=== PATIENT | female | born 1950 | race Caucasian/White ===

== ENCOUNTER 2018-08-14 22:14 | Emergency (ER) | payer MEDICARE, OTHER ==
[~2018-08-14] VITALS: Ht 160 cm; Wt 59.0 kg
[~2018-08-14 22:14] MED LIST: ACET-704 PO; ACET325T9 PO; AMOX1TAB11 PO; CYCL10TA2 PO; IPRA3AMP29 NEB; LACT1CAP19 PO; METH4TAB2 PO; NABU750T PO; NAPR500T8 PO; TRAZ300T2 PO
[2018-08-14 23:10] LABS: BASO % 0 % (0-3); EOS # 0.1 x10^3/uL (0.0-0.7); EOS % 2 % (0-3); HEMATOCRIT 43.3 % (36.0-47.0); HEMOGLOBIN 15.1 g/dL (12.0-15.5); LYMPH # 1.8 x10^3/uL (1.0-4.8); LYMPH % 27 % (24-48); MEAN CORPUSCULAR HEMOGLOBIN 32 pg (25-35); MEAN CORPUSCULAR HGB CONC 35 g/dL (31-37); MEAN CORPUSCULAR VOLUME 93 fL (79-100); MONO # 0.6 x10^3/uL (0.0-1.1); MONO % 9 % (0-9); NEUT % 61 % (31-73); PLATELET COUNT 217 x10^3/uL (140-400); RED BLOOD COUNT 4.67 x10^6/uL (3.50-5.40); RED CELL DISTRIBUTION WIDTH 13.2 % (11.5-14.5); WHITE BLOOD COUNT 6.6 x10^3/uL (4.0-11.0)
--- NOTE | 2018-08-14 23:14 | RAD ---
EXAM: Chest, 2 views. HISTORY: Shortness of air. COMPARISON: CT dated 03/26/2018. FINDINGS: 2 views of the chest are obtained. There is no infiltrate, pleural effusion or pneumothorax. The heart is normal in size. There are calcified granulomas. There is emphysema. IMPRESSION: No acute pulmonary finding. Electronically signed by: Darleen Raza MD (08/14/2018 11:12 PM) [facility]
[2018-08-14 23:26] LABS: CALCIUM 9.1 mg/dL (8.5-10.1); GFR 55.5; POTASSIUM 4.1 mmol/L (3.5-5.1)
[2018-08-14] MEDS ORDERED: methylPREDNISolone SOD SUCC PF 125 MG/2 ML VIAL. IV ONE (23:30)
[2018-08-14] MEDS ORDERED: IPRATRPIUM/ALBUTEROL 0.5/2.5MG 3 ML NEBU. NEB ONE (23:30)
[2018-08-14 23:31] LABS: ALBUMIN 3.5 g/dL (3.4-5.0); ALBUMIN/GLOBULIN RATIO 0.9 (1.0-1.7); TOTAL BILIRUBIN 0.5 mg/dL (0.2-1.0); TOTAL PROTEIN 7.3 g/dL (6.4-8.2)
--- NOTE | 2018-08-14 23:31 | PHYS DOC ---
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 The patient has had insurance issues and states that she has not been able to feel the medications that her doctor has prescribed. The patient has been using her 's albuterol treatment at home. The patient has also been using Tylenol and Aleve at home. Rates her pain as 10 out of 10 and states she is sore. Review of Systems Review of Systems Constitutional: Reports fever or chills [] Eyes: Denies change in visual acuity, redness, or eye pain [] HENT: Denies nasal congestion or sore throat [] Respiratory: Reports cough or shortness of breath [] Cardiovascular: No additional information not addressed in HPI [] GI: Denies abdominal pain, nausea, vomiting, bloody stools or diarrhea [] : Denies dysuria or hematuria [] Musculoskeletal: Denies back pain or joint pain [] Integument: Denies rash or skin lesions [] Neurologic: Denies headache, focal weakness or sensory changes [] Endocrine: Denies polyuria or polydipsia [] Complete systems were reviewed and found to be within normal limits, except as documented in this note. Current Medications Current Medications Current Medications Medications (Trade) Dose Ordered Sig/Jailyn Start Time Stop Time Status Last Admin Dose Admin Albuterol/ Ipratropium (Duoneb) 3 ml 1X ONCE 08/14/18 23:30 08/14/18 23:31 DC 08/14/18 23:33 3 ML Methylprednisolone Sodium Succinate (SOLU-Medrol 125MG VIAL) 125 mg 1X ONCE 08/14/18 23:30 08/14/18 23:31 DC 08/14/18 23:41 125 MG Allergies Allergies Allergies Coded Allergies Type Severity Reaction Last Updated Verified morphine Allergy Severe rash and throat swelling 01/25/16 Yes meperidine Allergy Intermediate rash 07/06/15 Yes Physical Exam Physical Exam Constitutional: Well developed, well nourished, no acute distress, non-toxic appearance. [] HENT: Normocephalic, atraumatic, bilateral external ears normal, oropharynx moist, no oral exudates, nose normal. [] Eyes: PERRLA, EOMI, conjunctiva normal, no discharge. [] Neck: Normal range of motion, no tenderness, supple, no stridor. [] Cardiovascular:Heart rate regular rhythm, no murmur [] Lungs & Thorax: Left side breath sounds are clear to auscultation. Right side has expiratory wheezing diffusely. Abdomen: Bowel sounds normal, soft, no tenderness, no masses, no pulsatile masses. [] Skin: Warm, dry, no erythema, no rash. [] Back: No tenderness, no CVA tenderness. [] Extremities: No tenderness, no cyanosis, no clubbing, ROM intact, no edema. [] Neurologic: Alert and oriented X 3, normal motor function, normal sensory function, no focal deficits noted. [] Psychologic: Affect normal, judgement normal, mood normal. [] Current Patient Data Vital Signs Vital Signs Date Time Temp Pulse Resp B/P (MAP) Pulse Ox O2 Delivery O2 Flow Rate FiO2 08/14/18 23:42 82 20 131/76 (94) 95 Room Air 08/14/18 22:28 97.7 97.7 Lab Values Laboratory Tests Test 08/14/18 22:45 08/14/18 23:30 White Blood Count 6.6 x10^3/uL (4.0-11.0) Red Blood Count 4.67 x10^6/uL (3.50-5.40) Hemoglobin 15.1 g/dL (12.0-15.5) Hematocrit 43.3 % (36.0-47.0) Mean Corpuscular Volume 93 fL (79-100) Mean Corpuscular Hemoglobin 32 pg (25-35) Mean Corpuscular Hemoglobin Concent 35 g/dL (31-37) Red Cell Distribution Width 13.2 % (11.5-14.5) Platelet Count 217 x10^3/uL (140-400) Neutrophils (%) (Auto) 61 % (31-73) Lymphocytes (%) (Auto) 27 % (24-48) Monocytes (%) (Auto) 9 % (0-9) Eosinophils (%) (Auto) 2 % (0-3) Basophils (%) (Auto) 0 % (0-3) Neutrophils # (Auto) 4.0 x10^3uL (1.8-7.7) Lymphocytes # (Auto) 1.8 x10^3/uL (1.0-4.8) Monocytes # (Auto) 0.6 x10^3/uL (0.0-1.1) Eosinophils # (Auto) 0.1 x10^3/uL (0.0-0.7) Basophils # (Auto) 0.0 x10^3/uL (0.0-0.2) Sodium Level 142 mmol/L (136-145) Potassium Level 4.1 mmol/L (3.5-5.1) Chloride Level 106 mmol/L (98-107) Carbon Dioxide Level 24 mmol/L (21-32) Anion Gap 12 (6-14) Blood Urea Nitrogen 13 mg/dL (7-20) Creatinine 1.0 mg/dL (0.6-1.0) Estimated GFR (Cockcroft-Gault) 55.5 BUN/Creatinine Ratio 13 (6-20) Glucose Level 122 mg/dL (70-99) H Calcium Level 9.1 mg/dL (8.5-10.1) Total Bilirubin 0.5 mg/dL (0.2-1.0) Aspartate Amino Transferase (AST) 23 U/L (15-37) Alanine Aminotransferase (ALT) 31 U/L (14-59) Alkaline Phosphatase 87 U/L (46-116) Troponin I Quantitative < 0.017 ng/mL (0.000-0.055) CJ-Fom-Y-Type Natriuretic Peptide 171 pg/mL (0-124) H Total Protein 7.3 g/dL (6.4-8.2) Albumin 3.5 g/dL (3.4-5.0) Albumin/Globulin Ratio 0.9 (1.0-1.7) L Urine Collection Type Unknown Urine Color Yellow Urine Clarity Clear Urine pH 6.0 Urine Specific [place] 1.025 Urine Protein Negative mg/dL (NEG-TRACE) Urine Glucose (UA) Negative mg/dL (NEG) Urine Ketones (Stick) Negative mg/dL (NEG) Urine Blood Negative (NEG) Urine Nitrite Negative (NEG) Urine Bilirubin Negative (NEG) Urine Urobilinogen Dipstick 2.0 mg/dL (0.2 mg/dL) Urine Leukocyte Esterase Small (NEG) Urine RBC Rare /HPF (0-2) Urine WBC 1-4 /HPF (0-4) Urine Squamous Epithelial Cells Occ /LPF Urine Bacteria 0 /HPF (0-FEW) Urine Mucus Slight /LPF Lactic Acid Level 0.9 mmol/L (0.4-2.0) Laboratory Tests 08/14/18 22:45 Laboratory Tests 08/14/18 22:45 EKG EKG EKG interpreted by Dr. Saucedo Sinus Rhythm with rate of 82. No STEMI.[] Radiology/Procedures Radiology/Procedures []PATIENT: NAN-MARIE HATCH AACCOUNT: [id number]#: [id number] : 1950 LOCATION: ER AGE: 68 SEX: F EXAM STATUS: REG ER ORD. PHYSICIAN: KAVEH GALEAS APRN REASON: soa PROCEDURE: CHEST PA & LATERAL EXAM: Chest, 2 views. HISTORY: Shortness of air. COMPARISON: CT dated 03/26/2018. FINDINGS: 2 views of the chest are obtained. There is no infiltrate, pleural effusion or pneumothorax. The heart is normal in size. There are calcified granulomas. There is emphysema. IMPRESSION: No acute pulmonary finding. Electronically signed by: Darleen Raza MD (08/14/2018 11:12 PM) [facility] Course & Med Decision Making Course & Med Decision Making Pertinent Labs and Imaging studies reviewed. (See chart for details) Will get labs, chest x-ray, and give supportive care. Will give breathing treatment, and steroids. Lab work and imaging is unremarkable. Patient has improved with breathing treatment and feels comfortable going home. Patient is non-labored, resting and states she feels much better. No longer having expiratory wheezing. Dragon Disclaimer Dragon Disclaimer This electronic medical record was generated, in whole or in part, using a voice recognition dictation system. Departure Departure Impression: Primary Impression: COPD exacerbation Disposition: ADMITTED INPATIENT Admitting Physician: SERGIO Condition: STABLE Referrals: NO PCP (PCP) MONI JUDGE MD Patient Instructions: Chronic Obstructive Pulmonary Disease Exacerbation Additional Instructions: Please get your inhalers filled. Come back if symptoms get worse. Follow up with your primary care doctor. Return to ER as needed. Scripts Prednisone (PREDNISONE) 20 Mg Tablet 2 TAB PO DAILY for 5 Days, #10 TAB Prov: KAVEH GALEAS APRN 08/15/18 KAVEH GALEAS APRN Aug 14, 2018 23:31
[2018-08-14 23:41] LABS: BILIRUBIN,URINE NEGATIVE (NEG); CLARITY,URINE CLEAR; COLOR,URINE YELLOW; NITRITE,URINE NEGATIVE (NEG); PROTEIN,URINE NEGATIVE (NEG-TRACE)
[2018-08-14 23:46] LABS: BACTERIA,URINE 0 /HPF (0-FEW); RBC,URINE RARE /HPF (0-2); SQUAMOUS EPITHELIAL CELL,UR OCC /LPF
[2018-08-15 00:01] VITALS: BP 119/56
[2018-08-15] MEDS ORDERED: PRED20TA PO (00:25)
== END 2018-08-15 00:41 | disposition home or self-care (01) ==
LOC: ER 22:14
DX: J44.1 Chronic obstructive pulmonary disease with (acute) exacerbation (principal); F17.210 Nicotine dependence, cigarettes, uncomplicated; Z88.1 Allergy status to other antibiotic agents; Z88.5 Allergy status to narcotic agent
CPT/HCPCS: 36415; 71046; 80053; 81001; 83605; 83880; 84484; 85025; 94640; 96374; 99285; J2930; J7620

== ENCOUNTER 2019-01-14 10:54 | Inpatient (IN) | payer OTHER, MEDICAID ==
[~2019-01-14] VITALS: Ht 160 cm; Wt 66.5 kg
[~2019-01-14 10:54] MED LIST changes: +PRED20TA PO
[2019-01-14] MEDS ORDERED: IV NORMAL SALINE 1000ML BAG 1,000 ML IV SCH (11:12)
[2019-01-14] MEDS ORDERED: IPRATRPIUM/ALBUTEROL 0.5/2.5MG 3 ML NEBU. NEB ONE (11:15)
[2019-01-14] MEDS ORDERED: methylPREDNISolone SOD SUCC PF 125 MG/2 ML VIAL. IV ONE (11:15)
--- NOTE | 2019-01-14 11:19 | PHYS DOC ---
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 Patient complaining of nonproductive cough and episodes of shortness of breath during cough and activity for the last 1 week that gradually getting worse. Patient denies fever and chills, chest pain, sick contact, nausea and vomiting, leg edema. Patient states she took [id number] medication without improvement of her condition and her hadoop consultant was not available today and she decided to come to ER. Review of Systems Review of Systems Constitutional: Denies fever or chills [] Eyes: Denies change in visual acuity, redness, or eye pain [] HENT: Denies nasal congestion or sore throat [] Respiratory: Reports cough and shortness of breath Cardiovascular: No additional information not addressed in HPI [] GI: Denies abdominal pain, nausea, vomiting, bloody stools or diarrhea [] : Denies dysuria or hematuria [] Musculoskeletal: Denies back pain or joint pain [] Integument: Denies rash or skin lesions [] Neurologic: Denies headache, focal weakness or sensory changes [] Endocrine: Denies polyuria or polydipsia [] All other systems were reviewed and found to be within normal limits, except as documented in this note. Current Medications Current Medications Current Medications Medications (Trade) Dose Ordered Sig/Jailyn Start Time Stop Time Status Last Admin Dose Admin Albuterol/ Ipratropium (Duoneb) 3 ml 1X ONCE 01/14/19 11:15 01/14/19 11:17 DC 01/14/19 11:38 3 ML Methylprednisolone Sodium Succinate (SOLU-Medrol 125MG VIAL) 125 mg 1X ONCE 01/14/19 11:15 01/14/19 11:17 DC 01/14/19 11:53 125 MG Sodium Chloride 1,000 ml @ 1,000 mls/hr Q1H 01/14/19 11:12 01/14/19 12:11 DC 01/14/19 11:53 1,000 MLS/HR Allergies Allergies Allergies Coded Allergies Type Severity Reaction Last Updated Verified morphine Allergy Severe rash and throat swelling 01/25/16 Yes meperidine Allergy Intermediate rash 07/06/15 Yes Physical Exam Physical Exam Constitutional: Well developed, well nourished, moderate distress, non-toxic appearance. [] HENT: Normocephalic, atraumatic, bilateral external ears normal, oropharynx dry, no oral exudates, nose normal. [] Eyes: PERRLA, EOMI, conjunctiva normal, no discharge. [] Neck: Normal range of motion, no tenderness, supple, no stridor. [] Cardiovascular: Tachycardia, no murmur [] Lungs & Thorax: Moderate respiratory distress with intercostal retraction and tachypnea, decrease of air movement and diffuse rhonchi Abdomen: Bowel sounds normal, soft, no tenderness, no masses, no pulsatile masses. [] Skin: Warm, dry, no erythema, no rash. [] Back: No tenderness, no CVA tenderness. [] Extremities: No tenderness, no cyanosis, no clubbing, ROM intact, no edema. [] Neurologic: Alert and oriented X 3, normal motor function, normal sensory function, no focal deficits noted. [] Psychologic: Affect anxious, judgement normal, mood normal. [] Current Patient Data Vital Signs Vital Signs Date Time Temp Pulse Resp B/P (MAP) Pulse Ox O2 Delivery O2 Flow Rate FiO2 01/14/19 12:09 91 116/89 (98) 91 Room Air 01/14/19 11:16 98.1 22 98.1 Lab Values Laboratory Tests Test 01/14/19 11:10 01/14/19 11:15 01/14/19 11:35 Urine Collection Type Unknown Urine Color Yellow Urine Clarity Clear Urine pH 5.5 Urine Specific [place] 1.015 Urine Protein Negative mg/dL (NEG-TRACE) Urine Glucose (UA) Negative mg/dL (NEG) Urine Ketones (Stick) Negative mg/dL (NEG) Urine Blood Negative (NEG) Urine Nitrite Negative (NEG) Urine Bilirubin Negative (NEG) Urine Urobilinogen Dipstick 0.2 mg/dL (0.2 mg/dL) Urine Leukocyte Esterase Trace (NEG) Urine RBC Occ /HPF (0-2) Urine WBC 1-4 /HPF (0-4) Urine Squamous Epithelial Cells Mod /LPF Urine Bacteria Few /HPF (0-FEW) Urine Mucus Mod /LPF White Blood Count 7.7 x10^3/uL (4.0-11.0) Red Blood Count 4.87 x10^6/uL (3.50-5.40) Hemoglobin 15.8 g/dL (12.0-15.5) H Hematocrit 46.2 % (36.0-47.0) Mean Corpuscular Volume 95 fL (79-100) Mean Corpuscular Hemoglobin 33 pg (25-35) Mean Corpuscular Hemoglobin Concent 34 g/dL (31-37) Red Cell Distribution Width 13.0 % (11.5-14.5) Platelet Count 231 x10^3/uL (140-400) Neutrophils (%) (Auto) 71 % (31-73) Lymphocytes (%) (Auto) 17 % (24-48) L Monocytes (%) (Auto) 8 % (0-9) Eosinophils (%) (Auto) 3 % (0-3) Basophils (%) (Auto) 1 % (0-3) Neutrophils # (Auto) 5.5 x10^3/uL (1.8-7.7) Lymphocytes # (Auto) 1.3 x10^3/uL (1.0-4.8) Monocytes # (Auto) 0.6 x10^3/uL (0.0-1.1) Eosinophils # (Auto) 0.2 x10^3/uL (0.0-0.7) Basophils # (Auto) 0.1 x10^3/uL (0.0-0.2) Prothrombin Time 12.6 SEC (11.7-14.0) Prothrombin Time INR 1.0 (0.8-1.1) Sodium Level 141 mmol/L (136-145) Potassium Level 4.7 mmol/L (3.5-5.1) Chloride Level 106 mmol/L (98-107) Carbon Dioxide Level 23 mmol/L (21-32) Anion Gap 12 (6-14) Blood Urea Nitrogen 15 mg/dL (7-20) Creatinine 0.9 mg/dL (0.6-1.0) Estimated GFR (Cockcroft-Gault) 62.6 BUN/Creatinine Ratio 17 (6-20) Glucose Level 122 mg/dL (70-99) H Lactic Acid Level 2.1 mmol/L (0.4-2.0) H Calcium Level 9.2 mg/dL (8.5-10.1) Total Bilirubin 0.5 mg/dL (0.2-1.0) Aspartate Amino Transferase (AST) 33 U/L (15-37) Alanine Aminotransferase (ALT) 41 U/L (14-59) Alkaline Phosphatase 102 U/L (46-116) Creatine Kinase 91 U/L (26-192) Troponin I Quantitative < 0.017 ng/mL (0.000-0.055) OP-Pus-T-Type Natriuretic Peptide 198 pg/mL (0-124) H Total Protein 7.3 g/dL (6.4-8.2) Albumin 3.6 g/dL (3.4-5.0) Albumin/Globulin Ratio 1.0 (1.0-1.7) O2 Saturation 93 % (92-99) Arterial Blood pH 7.45 (7.35-7.45) Arterial Blood pCO2 at Patient Temp 34 mmHg (35-46) L Arterial Blood pO2 at Patient Temp 65 mmHg (65-108) Arterial Blood HCO3 23 mmol/L (21-28) Arterial Blood Base Excess 0 mmol/L (-3-3) FiO2 21 Laboratory Tests 01/14/19 11:15 Laboratory Tests 01/14/19 11:15 EKG EKG EKG interpreted by me. EKG at 1108 showed sinus tachycardia at rate of 111, normal OK and QT intervals, no acute ST and T-wave abnormalities Radiology/Procedures Radiology/Procedures [][facility] [address] [place], [place] [id number] IMAGING REPORT Signed PATIENT: ANN-MARIE HATCH AACCOUNT: [id number] : 1950 LOCATION: ER AGE: 68 SEX: F EXAM STATUS: REG ER ORD. PHYSICIAN: FUNMI RAVI MD REASON: shortness of breath PROCEDURE: PORTABLE CHEST 1V EXAM: Chest, single view. HISTORY: Shortness of breath. COMPARISON: 08/14/2018 FINDINGS: A frontal view of the chest is obtained. There is bilateral basilar and lingular atelectasis or scarring. There is no pleural effusion or pneumothorax. The heart is normal in size. There is a small faint nodular opacity overlying the right upper lobe between the posterior fifth and sixth ribs. There is no corresponding finding on the prior study. There is hyperinflation likely due to emphysema. IMPRESSION: 1. No acute pulmonary finding. 2. Small faint nodular opacity overlying the right upper lobe. This may be artifactual. Short-term follow-up is recommended to exclude a noncalcified nodule in this location. Electronically signed by: Darleen Wang MD (01/14/2019 11:42 AM) [place] [id number] DICTATED and SIGNED BY: DARLEEN WANG MD DATE: 01/14/19 1142 Course & Med Decision Making Course & Med Decision Making Pertinent Labs and Imaging studies reviewed. (See chart for details) Evolution of patient in ER showed 68-year-old female patient with history of COPD and smoking presented with complaining of shortness of breath. Patient had O2 sat of 90 10 96% at room air that improved with treatment in ER. 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 Treatment for sepsis and COPD exacerbation was started. Patient requiring admission for further evaluation and treatment. Discussed with Dr. Thibodeaux who is in agreement with admission. Discussed findings and plan with patient and family, who acknowledge understanding and agreement. Dragon Disclaimer Dragon Disclaimer This electronic medical record was generated, in whole or in part, using a voice recognition dictation system. Departure Departure Impression: Primary Impression: Acute respiratory distress Additional Impressions: COPD exacerbation Sepsis Tobacco abuse Disposition: 09 ADMITTED INPATIENT (at 1231) Admitting Physician: SERGIO (Dr. Thibodeaux accepted admission at 12:30) Condition: GUARDED Referrals: NO PCP (PCP) Date and Time of Reassessment Date: Jan 14, 2019 Time: 12:33 Fluid Challenge Is the fluid challenge complet: No IBW Target Volume Used: No BMI > 30: No Vital Signs Vital Signs: Vital Signs Date Time Temp Pulse Resp B/P (MAP) Pulse Ox O2 Delivery O2 Flow Rate FiO2 01/14/19 12:09 91 116/89 (98) 91 Room Air 01/14/19 11:16 98.1 22 98.1 Temperature Source: Oral Respirations Respiratory Pattern: Tachypnea Cardiovascular Pulse Rhythm: Regular Heart: Nml S1, S2, no murmurs Lung Sounds Breath Sounds: Coarse, Rhonchi, Diminished Capillary Refil Capillary Refill: Rt Hand < 3 seconds Peripheral Pulse Pulse Location: Radial Pulse Strength: Normal (2+) Pulse Assessment Method: NIBP Problem Qualifiers Additional Impressions: Sepsis Sepsis type: sepsis due to unspecified organism Sepsis acute organ dysfu nction status: unspecified Qualified Codes: A41.9 - Sepsis, unspecified organism FUNMI RAVI MD Jan 14, 2019 11:19
[2019-01-14 11:30] LABS: BASO # 0.1 x10^3/uL (0.0-0.2); BASO % 1 % (0-3); EOS # 0.2 x10^3/uL (0.0-0.7); EOS % 3 % (0-3); HEMATOCRIT 46.2 % (36.0-47.0); HEMOGLOBIN 15.8 g/dL (12.0-15.5); LYMPH # 1.3 x10^3/uL (1.0-4.8); LYMPH % 17 % (24-48); MEAN CORPUSCULAR HEMOGLOBIN 33 pg (25-35); MEAN CORPUSCULAR HGB CONC 34 g/dL (31-37); MEAN CORPUSCULAR VOLUME 95 fL (79-100); MONO # 0.6 x10^3/uL (0.0-1.1); MONO % 8 % (0-9); NEUT # 5.5 x10^3/uL (1.8-7.7); NEUT % 71 % (31-73); PLATELET COUNT 231 x10^3/uL (140-400); RED BLOOD COUNT 4.87 x10^6/uL (3.50-5.40); WHITE BLOOD COUNT 7.7 x10^3/uL (4.0-11.0)
[2019-01-14 11:33] LABS: BILIRUBIN,URINE NEGATIVE (NEG); CLARITY,URINE CLEAR; COLOR,URINE YELLOW; NITRITE,URINE NEGATIVE (NEG); PH,URINE 5.5; PROTEIN,URINE NEGATIVE (NEG-TRACE); UROBILINOGEN,URINE 0.2 mg/dL (0.2 mg/dL)
[2019-01-14 11:41] LABS: PROTHROMBIN TIME PATIENT 12.6 SEC (11.7-14.0)
--- NOTE | 2019-01-14 11:42 | EKG ---
[facility] [address] [place] [address] Test Date: 2019-01-14 Test Time: 11:08:05 Pat Name: ANN-MARIE HATCH Department: Room: Gender: F Rehab Services Aide: : 1950 Requested By: FUNMI RAVI Order Number: [id number] Reading MD: Measurements Intervals [place] Rate: 111 P: 82 [place]: 154 QRS: 38 QRSD: 62 T: 49 QT: 310 QTc: 425 Interpretive Statements SINUS TACHYCARDIA OTHERWISE NORMAL ECG RI6.01 No previous ECG available for comparison
[2019-01-14 11:43] LABS: CALCIUM 9.2 mg/dL (8.5-10.1); CREATININE 0.9 mg/dL (0.6-1.0); GFR 62.6; POTASSIUM 4.7 mmol/L (3.5-5.1)
[2019-01-14 11:44] LABS: BASE EXCESS ABG 0 mmol/L (-3-3); HCO3 ABG 23 mmol/L (21-28); PCO2 ABG 34 mmHg (35-46); PO2 ABG 65 mmHg (65-108); SAT O2 ABG 93 % (92-99)
--- NOTE | 2019-01-14 11:45 | RAD ---
EXAM: Chest, single view. HISTORY: Shortness of breath. COMPARISON: 08/14/2018 FINDINGS: A frontal view of the chest is obtained. There is bilateral basilar and lingular atelectasis or scarring. There is no pleural effusion or pneumothorax. The heart is normal in size. There is a small faint nodular opacity overlying the right upper lobe between the posterior fifth and sixth ribs. There is no corresponding finding on the prior study. There is hyperinflation likely due to emphysema. IMPRESSION: 1. No acute pulmonary finding. 2. Small faint nodular opacity overlying the right upper lobe. This may be artifactual. Short-term follow-up is recommended to exclude a noncalcified nodule in this location. Electronically signed by: Darleen Raza MD (01/14/2019 11:42 AM) [place] [id number]
[2019-01-14 11:47] LABS: FIO2 ABG 21
[2019-01-14 11:50] LABS: ALBUMIN 3.6 g/dL (3.4-5.0); TOTAL BILIRUBIN 0.5 mg/dL (0.2-1.0); TOTAL PROTEIN 7.3 g/dL (6.4-8.2)
[2019-01-14 11:51] LABS: RBC,URINE OCC /HPF (0-2); SQUAMOUS EPITHELIAL CELL,UR MOD /LPF
[2019-01-14 11:52] LABS: BACTERIA,URINE FEW /HPF (0-FEW)
[2019-01-14] MEDS ORDERED: cefTRIAXone IV Push 1 GM VIAL. IVP ONE (12:45)
[2019-01-14] MEDS ORDERED: ONDANSETRON PF 4 MG/2 ML VIAL. ONE (12:56)
[2019-01-14] MEDS ORDERED: ONDANSETRON PF 4 MG/2 ML VIAL. IM ONE (13:00)
[2019-01-14] MEDS ORDERED: ONDANSETRON PF 4 MG/2 ML VIAL. IVP ONE (13:15)
[2019-01-14] MEDS: IV NORMAL SALINE 1000ML BAG 1,000 ML IV SCH ×2 (13:24→20:01)
[2019-01-14 13:30] VITALS: BP 155/66
--- NOTE | 2019-01-14 14:34 | PDOC1 ---
History and Physical Date of Admission: Date of Admission DATE: 01/14/19 TIME: 14:32 Chief Complaint: Chief Complain: Shortness of breath and cough History of Present Illness: HPI: HPI HPI Patient is a 68 year old 68-year-old currently a smoker female patient with history of COPD on 3 L of night oxygen who presents with complaining of cough and shortness of breath. Patient complaining of nonproductive cough and episodes of shortness of breath during cough and activity for the last 1 week that gradua lly getting worse. Patient denies fever and chills, chest pain, sick contact, nausea and vomiting, leg edema. Patient states she took [id number] medication without improvement of her condition and her associate director regulatory affairs was not available today and she decided to come to ER. Past Medical/Surgical History: PMH/PSH: Past Medical History: Anemia, COPD, Other Additional Past Medical Histor: TUMORS IN CHEST CAVITY,POSSIBLE CA Past Surgical History: Other Additional Past Surgical Histo: TUBAL Alcohol Use: None Drug Use: Methamphetamine Allergies: Allergies: Coded Allergies: morphine (Verified Allergy, Severe, rash and throat swelling, 01/25/16) tolerates hydrocodone meperidine (Verified Allergy, Intermediate, rash, 07/06/15) Family History: Family History: Hypertension and diabetes Social History: Social Hisoty: She still smokes no drinking or drugs Current Medications: Current Medications Current Medications Sodium Chloride 1,000 ml @ 1,000 mls/hr Q1H IV Last administered on 01/14/19at 11:53; Start 01/14/19 at 11:12; Stop 01/14/19 at 12:11; Status DC Albuterol/ Ipratropium (Duoneb) 3 ml 1X ONCE NEB Last administered on 01/14/19at 11:38; Start 01/14/19 at 11:15; Stop 01/14/19 at 11:17; Status DC Methylprednisolone Sodium Succinate (SOLU-Medrol 125MG VIAL) 125 mg 1X ONCE IV Last administered on 01/14/19at 11:53; Start 01/14/19 at 11:15; Stop 01/14/19 at 11:17; Status DC Ceftriaxone Sodium (Rocephin) 1 gm 1X ONCE IVP Last administered on 01/14/19at 12:51; Start 01/14/19 at 12:45; Stop 01/14/19 at 12:46; Status DC Ondansetron HCl (Zofran) 4 mg STK-MED ONCE .ROUTE ; Start 01/14/19 at 12:56; Stop 01/14/19 at 12:57; Status DC Ondansetron HCl (Zofran) 4 mg 1X ONCE IM ; Start 01/14/19 at 13:00; Stop 01/14/19 at 13:01; Status UNV Ondansetron HCl (Zofran) 4 mg 1X ONCE IVP Last administered on 01/14/19at 13:14; Start 01/14/19 at 13:15; Stop 01/14/19 at 13:16; Status DC Sodium Chloride 1,000 ml @ 125 mls/hr Q8H IV ; Start 01/14/19 at 13:24; Stop 1 03/17/18 at 13:23 Active Scripts Active Prednisone 20 Mg Tablet 2 Tab PO DAILY 5 Days Culturelle (Lactobacillus Rhamnosus Gg) 1 Each Cap.sprink 1 Cap PO BID 14 Days Tylenol (Acetaminophen) 325 Mg Tablet 650 Mg PO PRN Q6HRS PRN 14 Days Duoneb 0.5-3(2.5) Mg/3 Ml (Albuterol/Ipratropium) 3 Ml Ampul.neb 3 Ml NEB RTQID 30 Days Amox Tr-K Clv 875-125 Mg Tab (Amoxicillin/Potassium Clav) 1 Each Tablet 1 Tab PO BID 10 Days Reported Trazodone Hcl 300 Mg Tablet 1 Tab PO QHS Nabumetone 750 Mg Tablet 2 Tab PO DAILY ROS: Review of Systems Review of System REVIEW OF SYSTEMS: GENERAL: Denies weakness SKIN: No bruising, hair changes or rashes. EYES: No blurred, double or loss of vision. NOSE AND THROAT: No history of nosebleeds, hoarseness or sore throat. HEART: No history of palpitations, chest pain or shortness of breath on exertion. LUNGS: Complains of cough, hemoptysis, wheezing or shortness of breath. GASTROINTESTINAL: Denies changes in appetite, nausea, vomiting, diarrhea or constipation. GENITOURINARY: No history of frequency, urgency, hesitancy or nocturia. NEUROLOGIC: Denies history of numbness, tingling, tremor or weakness. PSYCHIATRIC: No history of panic, anxiety or depression. ENDOCRINE: No history of heat or cold intolerance, polyuria or polydipsia. EXTREMITIES: Denies muscle weakness, joint pain, pain on walking or stiffness. Physical Exam: Vital Signs: Vital Signs Date Time Temp Pulse Resp B/P (MAP) Pulse Ox O2 Delivery O2 Flow Rate FiO2 01/14/19 13:09 80 116/69 (85) 92 Room Air 01/14/19 11:16 98.1 22 98.1 Physcial Exam: GEN.: No apparent distress. Alert and oriented. HEENT: Head is normocephalic, atraumatic NECK: Supple, no JVD LUNGS: Course breath sounds and wheezing throughout HEART: RRR, S1, S2 present. Peripheral pulses intact ABDOMEN: Soft, nontender. Positive bowel sounds no organomegaly EXTREMITIES: Without any cyanosis, clubbing, or edema. Pedal pulses intact NEUROLOGIC: Normal speech, normal tone. A&O x 3 PSYCHIATRIC: Normal affect, normal mood. Stable SKIN: No ulcerations or rashes VASCULAR: Good capillary refill Labs: Labs: Laboratory Tests Test 01/14/19 11:10 01/14/19 11:15 01/14/19 11:35 Urine Collection Type Unknown Urine Color Yellow Urine Clarity Clear Urine pH 5.5 Urine Specific Springer 1.015 Urine Protein Negative mg/dL (NEG-TRACE) Urine Glucose (UA) Negative mg/dL (NEG) Urine Ketones (Stick) Negative mg/dL (NEG) Urine Blood Negative (NEG) Urine Nitrite Negative (NEG) Urine Bilirubin Negative (NEG) Urine Urobilinogen Dipstick 0.2 mg/dL (0.2 mg/dL) Urine Leukocyte Esterase Trace (NEG) Urine RBC Occ /HPF (0-2) Urine WBC 1-4 /HPF (0-4) Urine Squamous Epithelial Cells Mod /LPF Urine Bacteria Few /HPF (0-FEW) Urine Mucus Mod /LPF White Blood Count 7.7 x10^3/uL (4.0-11.0) Red Blood Count 4.87 x10^6/uL (3.50-5.40) Hemoglobin 15.8 g/dL (12.0-15.5) Hematocrit 46.2 % (36.0-47.0) Mean Corpuscular Volume 95 fL (79-100) Mean Corpuscular Hemoglobin 33 pg (25-35) Mean Corpuscular Hemoglobin Concent 34 g/dL (31-37) Red Cell Distribution Width 13.0 % (11.5-14.5) Platelet Count 231 x10^3/uL (140-400) Neutrophils (%) (Auto) 71 % (31-73) Lymphocytes (%) (Auto) 17 % (24-48) Monocytes (%) (Auto) 8 % (0-9) Eosinophils (%) (Auto) 3 % (0-3) Basophils (%) (Auto) 1 % (0-3) Neutrophils # (Auto) 5.5 x10^3/uL (1.8-7.7) Lymphocytes # (Auto) 1.3 x10^3/uL (1.0-4.8) Monocytes # (Auto) 0.6 x10^3/uL (0.0-1.1) Eosinophils # (Auto) 0.2 x10^3/uL (0.0-0.7) Basophils # (Auto) 0.1 x10^3/uL (0.0-0.2) Prothrombin Time 12.6 SEC (11.7-14.0) Prothromb Time International Ratio 1.0 (0.8-1.1) Sodium Level 141 mmol/L (136-145) Potassium Level 4.7 mmol/L (3.5-5.1) Chloride Level 106 mmol/L (98-107) Carbon Dioxide Level 23 mmol/L (21-32) Anion Gap 12 (6-14) Blood Urea Nitrogen 15 mg/dL (7-20) Creatinine 0.9 mg/dL (0.6-1.0) Estimated GFR (Cockcroft-Gault) 62.6 BUN/Creatinine Ratio 17 (6-20) Glucose Level 122 mg/dL (70-99) Lactic Acid Level 2.1 mmol/L (0.4-2.0) Calcium Level 9.2 mg/dL (8.5-10.1) Total Bilirubin 0.5 mg/dL (0.2-1.0) Aspartate Amino Transf (AST/SGOT) 33 U/L (15-37) Alanine Aminotransferase (ALT/SGPT) 41 U/L (14-59) Alkaline Phosphatase 102 U/L (46-116) Creatine Kinase 91 U/L (26-192) Troponin I Quantitative < 0.017 ng/mL (0.000-0.055) UI-Ihd-P-Type Natriuretic Peptide 198 pg/mL (0-124) Total Protein 7.3 g/dL (6.4-8.2) Albumin 3.6 g/dL (3.4-5.0) Albumin/Globulin Ratio 1.0 (1.0-1.7) O2 Saturation 93 % (92-99) Arterial Blood pH 7.45 (7.35-7.45) Arterial Blood pCO2 at Patient Temp 34 mmHg (35-46) Arterial Blood pO2 at Patient Temp 65 mmHg (65-108) Arterial Blood HCO3 23 mmol/L (21-28) Arterial Blood Base Excess 0 mmol/L (-3-3) FiO2 21 Laboratory Tests Test 01/14/19 11:10 01/14/19 11:15 01/14/19 11:35 Urine Collection Type Unknown Urine Color Yellow Urine Clarity Clear Urine pH 5.5 Urine Specific Springer 1.015 Urine Protein Negative mg/dL (NEG-TRACE) Urine Glucose (UA) Negative mg/dL (NEG) Urine Ketones (Stick) Negative mg/dL (NEG) Urine Blood Negative (NEG) Urine Nitrite Negative (NEG) Urine Bilirubin Negative (NEG) Urine Urobilinogen Dipstick 0.2 mg/dL (0.2 mg/dL) Urine Leukocyte Esterase Trace (NEG) Urine RBC Occ /HPF (0-2) Urine WBC 1-4 /HPF (0-4) Urine Squamous Epithelial Cells Mod /LPF Urine Bacteria Few /HPF (0-FEW) Urine Mucus Mod /LPF White Blood Count 7.7 x10^3/uL (4.0-11.0) Red Blood Count 4.87 x10^6/uL (3.50-5.40) Hemoglobin 15.8 g/dL (12.0-15.5) Hematocrit 46.2 % (36.0-47.0) Mean Corpuscular Volume 95 fL (79-100) Mean Corpuscular Hemoglobin 33 pg (25-35) Mean Corpuscular Hemoglobin Concent 34 g/dL (31-37) Red Cell Distribution Width 13.0 % (11.5-14.5) Platelet Count 231 x10^3/uL (140-400) Neutrophils (%) (Auto) 71 % (31-73) Lymphocytes (%) (Auto) 17 % (24-48) Monocytes (%) (Auto) 8 % (0-9) Eosinophils (%) (Auto) 3 % (0-3) Basophils (%) (Auto) 1 % (0-3) Neutrophils # (Auto) 5.5 x10^3/uL (1.8-7.7) Lymphocytes # (Auto) 1.3 x10^3/uL (1.0-4.8) Monocytes # (Auto) 0.6 x10^3/uL (0.0-1.1) Eosinophils # (Auto) 0.2 x10^3/uL (0.0-0.7) Basophils # (Auto) 0.1 x10^3/uL (0.0-0.2) Prothrombin Time 12.6 SEC (11.7-14.0) Prothromb Time International Ratio 1.0 (0.8-1.1) Sodium Level 141 mmol/L (136-145) Potassium Level 4.7 mmol/L (3.5-5.1) Chloride Level 106 mmol/L (98-107) Carbon Dioxide Level 23 mmol/L (21-32) Anion Gap 12 (6-14) Blood Urea Nitrogen 15 mg/dL (7-20) Creatinine 0.9 mg/dL (0.6-1.0) Estimated GFR (Cockcroft-Gault) 62.6 BUN/Creatinine Ratio 17 (6-20) Glucose Level 122 mg/dL (70-99) Lactic Acid Level 2.1 mmol/L (0.4-2.0) Calcium Level 9.2 mg/dL (8.5-10.1) Total Bilirubin 0.5 mg/dL (0.2-1.0) Aspartate Amino Transf (AST/SGOT) 33 U/L (15-37) Alanine Aminotransferase (ALT/SGPT) 41 U/L (14-59) Alkaline Phosphatase 102 U/L (46-116) Creatine Kinase 91 U/L (26-192) Troponin I Quantitative < 0.017 ng/mL (0.000-0.055) YO-Epr-S-Type Natriuretic Peptide 198 pg/mL (0-124) Total Protein 7.3 g/dL (6.4-8.2) Albumin 3.6 g/dL (3.4-5.0) Albumin/Globulin Ratio 1.0 (1.0-1.7) O2 Saturation 93 % (92-99) Arterial Blood pH 7.45 (7.35-7.45) Arterial Blood pCO2 at Patient Temp 34 mmHg (35-46) Arterial Blood pO2 at Patient Temp 65 mmHg (65-108) Arterial Blood HCO3 23 mmol/L (21-28) Arterial Blood Base Excess 0 mmol/L (-3-3) FiO2 21 Assessment/Plan Assessment/Plan Respiratory failure COPD Tobacco abuse Plan Consult pulmonary IV steroids IV antibiotics O2 per nasal cannula Duo nebs Home meds DVT prophylaxis Full code MITCHELL GUAJARDO III DO Jan 14, 2019 14:34
[2019-01-14 15:04] VITALS: BP 150/63
--- NOTE | 2019-01-14 17:28 | NUR ---
Pt reports no home meds.
[2019-01-14 19:50] VITALS: BP 127/70
[2019-01-14] MEDS ORDERED: ZOLPIDEM 5 MG TABLET. PO PRN (21:00)
[2019-01-14] MEDS ORDERED: ACETAMINOPHEN 325 MG TABLET. PO PRN (21:00)
[2019-01-14] MEDS: methylPREDNISolone SOD SUCC PF 40 MG/ML VIAL. IV SCH ×2 (21:07→21:09)
[2019-01-14] MEDS: LACTOBACILLUS RHAMNOSUS GG 1 CAPSULE. PO SCH (21:07)
[2019-01-14] MEDS: IPRATRPIUM/ALBUTEROL 0.5/2.5MG 3 ML NEBU. NEB SCH (21:19)
[2019-01-14] MEDS: traZODone 100 MG TABLET. PO SCH (22:00)
[2019-01-14 23:56] VITALS: BP 113/68
[2019-01-15] MEDS: IV NORMAL SALINE 1000ML BAG 1,000 ML IV SCH (02:06)
[2019-01-15 03:00] VITALS: BP 113/64
[2019-01-15] MEDS: IPRATRPIUM/ALBUTEROL 0.5/2.5MG 3 ML NEBU. NEB SCH ×5 (07:08→22:00)
[2019-01-15 07:15] VITALS: BP 119/65
[2019-01-15] MEDS: MELOXICAM 7.5 MG TABLET PO SCH (08:18)
[2019-01-15] MEDS: LACTOBACILLUS RHAMNOSUS GG 1 CAPSULE. PO SCH ×2 (08:18→20:48)
[2019-01-15] MEDS ORDERED: FLU VAX QS 2019-20 (36MOS+)/PF 0.5 ML SYRINGE. VAX IM ONE (09:00)
[2019-01-15 11:01] VITALS: BP 129/63
[2019-01-15] MEDS ORDERED: cefTRIAXone IV Push 1 GM VIAL. IVP SCH (12:00)
--- NOTE | 2019-01-15 12:12 | PDOC ---
PROGRESS NOTES Chief Complaint Chief Complaint acute on chronic combined Respiratory failure COPD with acute exacerbation Tobacco abuse History of Present Illness History of Present Illness better cough suppression today DC the IV fluids pulmonary follwing IV steroids and IV antibiotics O2 per nasal cannula Duo nebs Vitals Vitals Vital Signs Date Time Temp Pulse Resp B/P (MAP) Pulse Ox O2 Delivery O2 Flow Rate FiO2 01/15/19 11:02 93 Room Air 01/15/19 11:01 97.6 79 20 129/63 (85) 97.6 Physical Exam General: Alert, Cooperative Lungs: Crackles, Other (end wheeze, rales, deep breaths provoke cough) Extremities: No cyanosis Skin: No rashes, No breakdown Labs LABS Laboratory Tests Test 01/14/19 14:53 Lactic Acid Level 2.3 mmol/L (0.4-2.0) Assessment and Plan Assessmemt and Plan Problems Medical Problems: (1) Acute respiratory distress Status: Acute (2) COPD exacerbation Status: Acute (3) Sepsis Status: Acute (4) Tobacco abuse Status: Acute Comment Review of Relevant I have reviewed the following items johan (where applicable) has been applied. Labs Laboratory Tests Test 01/14/19 11:10 01/14/19 11:15 01/14/19 11:35 01/14/19 14:53 Urine Collection Type Unknown Urine Color Yellow Urine Clarity Clear Urine pH 5.5 Urine Specific [place] 1.015 Urine Protein Negative mg/dL (NEG-TRACE) Urine Glucose (UA) Negative mg/dL (NEG) Urine Ketones (Stick) Negative mg/dL (NEG) Urine Blood Negative (NEG) Urine Nitrite Negative (NEG) Urine Bilirubin Negative (NEG) Urine Urobilinogen Dipstick 0.2 mg/dL (0.2 mg/dL) Urine Leukocyte Esterase Trace (NEG) Urine RBC Occ /HPF (0-2) Urine WBC 1-4 /HPF (0-4) Urine Squamous Epithelial Cells Mod /LPF Urine Bacteria Few /HPF (0-FEW) Urine Mucus Mod /LPF White Blood Count 7.7 x10^3/uL (4.0-11.0) Red Blood Count 4.87 x10^6/uL (3.50-5.40) Hemoglobin 15.8 g/dL (12.0-15.5) Hematocrit 46.2 % (36.0-47.0) Mean Corpuscular Volume 95 fL (79-100) Mean Corpuscular Hemoglobin 33 pg (25-35) Mean Corpuscular Hemoglobin Concent 34 g/dL (31-37) Red Cell Distribution Width 13.0 % (11.5-14.5) Platelet Count 231 x10^3/uL (140-400) Neutrophils (%) (Auto) 71 % (31-73) Lymphocytes (%) (Auto) 17 % (24-48) Monocytes (%) (Auto) 8 % (0-9) Eosinophils (%) (Auto) 3 % (0-3) Basophils (%) (Auto) 1 % (0-3) Neutrophils # (Auto) 5.5 x10^3/uL (1.8-7.7) Lymphocytes # (Auto) 1.3 x10^3/uL (1.0-4.8) Monocytes # (Auto) 0.6 x10^3/uL (0.0-1.1) Eosinophils # (Auto) 0.2 x10^3/uL (0.0-0.7) Basophils # (Auto) 0.1 x10^3/uL (0.0-0.2) Prothrombin Time 12.6 SEC (11.7-14.0) Prothromb Time International Ratio 1.0 (0.8-1.1) Sodium Level 141 mmol/L (136-145) Potassium Level 4.7 mmol/L (3.5-5.1) Chloride Level 106 mmol/L (98-107) Carbon Dioxide Level 23 mmol/L (21-32) Anion Gap 12 (6-14) Blood Urea Nitrogen 15 mg/dL (7-20) Creatinine 0.9 mg/dL (0.6-1.0) Estimated GFR (Cockcroft-Gault) 62.6 BUN/Creatinine Ratio 17 (6-20) Glucose Level 122 mg/dL (70-99) Lactic Acid Level 2.1 mmol/L (0.4-2.0) 2.3 mmol/L (0.4-2.0) Calcium Level 9.2 mg/dL (8.5-10.1) Total Bilirubin 0.5 mg/dL (0.2-1.0) Aspartate Amino Transf (AST/SGOT) 33 U/L (15-37) Alanine Aminotransferase (ALT/SGPT) 41 U/L (14-59) Alkaline Phosphatase 102 U/L (46-116) Creatine Kinase 91 U/L (26-192) Troponin I Quantitative < 0.017 ng/mL (0.000-0.055) JD-Qol-R-Type Natriuretic Peptide 198 pg/mL (0-124) Total Protein 7.3 g/dL (6.4-8.2) Albumin 3.6 g/dL (3.4-5.0) Albumin/Globulin Ratio 1.0 (1.0-1.7) O2 Saturation 93 % (92-99) Arterial Blood pH 7.45 (7.35-7.45) Arterial Blood pCO2 at Patient Temp 34 mmHg (35-46) Arterial Blood pO2 at Patient Temp 65 mmHg (65-108) Arterial Blood HCO3 23 mmol/L (21-28) Arterial Blood Base Excess 0 mmol/L (-3-3) FiO2 21 Laboratory Tests Test 01/14/19 14:53 Lactic Acid Level 2.3 mmol/L (0.4-2.0) Microbiology 01/14/19 Blood Culture - Preliminary, Resulted NO GROWTH AFTER 1 DAY Medications Current Medications Sodium Chloride 1,000 ml @ 1,000 mls/hr Q1H IV Last administered on 01/14/19at 11:53; Start 01/14/19 at 11:12; Stop 01/14/19 at 12:11; Status DC Albuterol/ Ipratropium (Duoneb) 3 ml 1X ONCE NEB Last administered on 01/14/19at 11:38; Start 01/14/19 at 11:15; Stop 01/14/19 at 11:17; Status DC Methylprednisolone Sodium Succinate (SOLU-Medrol 125MG VIAL) 125 mg 1X ONCE IV Last administered on 01/14/19at 11:53; Start 01/14/19 at 11:15; Stop 01/14/19 at 11:17; Status DC Ceftriaxone Sodium (Rocephin) 1 gm 1X ONCE IVP Last administered on 01/14/19at 12:51; Start 01/14/19 at 12:45; Stop 01/14/19 at 12:46; Status DC Ondansetron HCl (Zofran) 4 mg STK-MED ONCE .ROUTE ; Start 01/14/19 at 12:56; Stop 01/14/19 at 12:57; Status DC Ondansetron HCl (Zofran) 4 mg 1X ONCE IM ; Start 01/14/19 at 13:00; Stop 01/14/19 at 13:01; Status UNV Ondansetron HCl (Zofran) 4 mg 1X ONCE IVP Last administered on 01/14/19at 13:14; Start 01/14/19 at 13:15; Stop 01/14/19 at 13:16; Status DC Sodium Chloride 1,000 ml @ 125 mls/hr Q8H IV Last administered on 01/15/19at 02:06; Start 01/14/19 at 13:24; Stop 01/15/19 at 13:23 Methylprednisolone Sodium Succinate (SOLU-Medrol 40MG VIAL) 40 mg Q12HR IV Last administered on 01/14/19at 21:07; Start 01/14/19 at 21:00 Ceftriaxone Sodium (Rocephin) 1 gm Q24H IVP ; Start 01/15/19 at 12:00 Albuterol/ Ipratropium (Duoneb) 3 ml Q4HRS W/A NEB Last administered on 01/15/19at 11:02; Start 01/14/19 at 22:00 Zolpidem Tartrate (Ambien) 5 mg PRN QHS PRN PO INSOMNIA; Start 01/14/19 at 21:00 Acetaminophen (Tylenol) 650 mg PRN Q6HRS PRN PO Headaches, Temp > 101.5F; Start 01/14/19 at 21:00 Lactobacillus Rhamnosus (Culturelle) 1 cap BID PO Last administered on 01/15/19at 08:18; Start 01/14/19 at 21:00 Meloxicam (Mobic) 15 mg DAILY PO Last administered on 01/15/19at 08:18; Start 01/15/19 at 09:00 Trazodone HCl (Desyrel) 300 mg QHS PO ; Start 01/14/19 at 22:00 Influenza Virus Vaccine Quadrival (Afluria Quad 2019-20 (3yr Up) Syringe) 0.5 ml ONCE ONCE VAX IM ; Start 01/15/19 at 09:00; Stop 01/15/19 at 09:01; Status DC Active Scripts Active Prednisone 20 Mg Tablet 2 Tab PO DAILY 5 Days Culturelle (Lactobacillus Rhamnosus Gg) 1 Each Cap.sprink 1 Cap PO BID 14 Days Tylenol (Acetaminophen) 325 Mg Tablet 650 Mg PO PRN Q6HRS PRN 14 Days Duoneb 0.5-3(2.5) Mg/3 Ml (Albuterol/Ipratropium) 3 Ml Ampul.neb 3 Ml NEB RTQID 30 Days Amox Tr-K Clv 875-125 Mg Tab (Amoxicillin/Potassium Clav) 1 Each Tablet 1 Tab PO BID 10 Days Reported Trazodone Hcl 300 Mg Tablet 1 Tab PO QHS Nabumetone 750 Mg Tablet 2 Tab PO DAILY Vitals/I & O Vital Sign - Last 24 Hours 01/14/19 01/14/19 01/14/19 01/14/19 12:39 13:09 13:30 15:04 Temp 97.8 97.1 97.8 97.1 Pulse 98 80 84 79 Resp 18 20 B/P (MAP) 123/78 (93) 116/69 (85) 155/66 (95) 150/63 (92) Pulse Ox 94 92 95 96 O2 Delivery Room Air Room Air Room Air Room Air 01/14/19 01/14/19 01/14/19 01/14/19 17:05 17:24 19:50 20:00 Temp 97.4 97.4 Pulse 75 Resp 20 B/P (MAP) 127/70 (89) Pulse Ox 94 O2 Delivery Room Air Room Air Room Air Room Air 01/14/19 01/14/19 01/15/19 01/15/19 21:21 23:56 03:00 07:08 Temp 97.6 97.8 97.6 97.8 Pulse 70 66 Resp 20 16 B/P (MAP) 113/68 (83) 113/64 (80) Pulse Ox 95 95 99 91 O2 Delivery Room Air Room Air Room Air Room Air 01/15/19 01/15/19 01/15/19 01/15/19 07:15 08:00 11:01 11:02 Temp 97.5 97.6 97.5 97.6 Pulse 84 79 Resp 18 20 B/P (MAP) 119/65 (83) 129/63 (85) Pulse Ox 97 95 93 O2 Delivery Room Air Room Air Room Air Room Air Intake and Output 01/14/19 01/14/19 01/15/19 15:00 23:00 07:00 Intake Total 1000 ml 380 ml 1500 ml Balance 1000 ml 380 ml 1500 ml BALDEMAR FERNANDEZ MD Jan 15, 2019 12:12
[2019-01-15] MEDS ORDERED: guaiFENesin DM 200MG/20MG 10 ML SYRUP PO PRN (12:15)
[2019-01-15] MEDS ORDERED: CODEINE SULFATE 30 MG TABLET. PO ONE (12:15)
[2019-01-15 14:54] VITALS: BP 110/60
[2019-01-15] MEDS: BENZONATATE 100 MG CAPSULE. PO SCH ×2 (15:11→20:48)
[2019-01-15 19:43] VITALS: BP 103/60
[2019-01-15] MEDS: methylPREDNISolone SOD SUCC PF 40 MG/ML VIAL. IV SCH (20:47)
[2019-01-15] MEDS: traZODone 100 MG TABLET. PO SCH (20:48)
--- NOTE | 2019-01-15 23:43 | NUR ---
Patient transferred to [facility]. No complaints of pain at this time. Patient has no complaints at this time. Report given to SHIREEN Dubon via phone.
[2019-01-15 23:47] VITALS: BP 118/67
[2019-01-16 02:32] VITALS: BP 110/69
[2019-01-16 06:55] LABS: BASO % 0 % (0-3); EOS % 0 % (0-3); HEMATOCRIT 40.2 % (36.0-47.0); HEMOGLOBIN 13.5 g/dL (12.0-15.5); LYMPH # 0.8 x10^3/uL (1.0-4.8); LYMPH % 9 % (24-48); MEAN CORPUSCULAR HEMOGLOBIN 32 pg (25-35); MEAN CORPUSCULAR HGB CONC 34 g/dL (31-37); MEAN CORPUSCULAR VOLUME 95 fL (79-100); MONO # 0.2 x10^3/uL (0.0-1.1); MONO % 3 % (0-9); NEUT # 7.2 x10^3/uL (1.8-7.7); NEUT % 88 % (31-73); PLATELET COUNT 209 x10^3/uL (140-400); RED BLOOD COUNT 4.22 x10^6/uL (3.50-5.40); RED CELL DISTRIBUTION WIDTH 13.3 % (11.5-14.5); WHITE BLOOD COUNT 8.2 x10^3/uL (4.0-11.0)
[2019-01-16 07:00] VITALS: BP 127/74
[2019-01-16 07:17] LABS: ALBUMIN/GLOBULIN RATIO 0.8 (1.0-1.7); CALCIUM 8.4 mg/dL (8.5-10.1); GFR 55.5; POTASSIUM 4.5 mmol/L (3.5-5.1); TOTAL BILIRUBIN 0.2 mg/dL (0.2-1.0); TOTAL PROTEIN 6.7 g/dL (6.4-8.2)
[2019-01-16 07:55] LABS: % BANDS 4 % (0-9); % LYMPHS 9 % (24-48); % MONOS 2 % (0-10); % SEGS 85 % (35-66); PLT ESTIMATE ADEQUATE (ADEQUATE)
[2019-01-16] MEDS: IPRATRPIUM/ALBUTEROL 0.5/2.5MG 3 ML NEBU. NEB SCH (08:30)
[2019-01-16] MEDS: MELOXICAM 7.5 MG TABLET PO SCH (08:59)
[2019-01-16] MEDS: LACTOBACILLUS RHAMNOSUS GG 1 CAPSULE. PO SCH (08:59)
[2019-01-16] MEDS: methylPREDNISolone SOD SUCC PF 40 MG/ML VIAL. IV SCH (08:59)
[2019-01-16] MEDS: BENZONATATE 100 MG CAPSULE. PO SCH (09:00)
[2019-01-16 10:38] VITALS: BP 106/61
[2019-01-16] MEDS ORDERED: BENZ-8 PO (10:41)
[2019-01-16] MEDS ORDERED: ALBU2.5V8 INH (10:41)
--- NOTE | 2019-01-16 10:45 | PDOC3 ---
Discharge Summary Visit Information Date of Admission: Jan 14, 2019 Date of Discharge: Jan 16, 2019 Admitting Diagnosis Comment: COPD flare SMoker Home O2 dependent NO PNA on CXR OBS stay Final Diagnosis Problems Medical Problems: (1) Acute respiratory distress Status: Acute (2) COPD exacerbation Status: Acute (3) Sepsis Status: Acute (4) Tobacco abuse Status: Acute Brief Hospital Course Allergies Allergies Coded Allergies Type Severity Reaction Last Updated Verified morphine Allergy Severe rash and throat swelling 01/25/16 Yes meperidine Allergy Intermediate rash 07/06/15 Yes Vital Signs Vital Signs Date Time Temp Pulse Resp B/P (MAP) Pulse Ox O2 Delivery O2 Flow Rate FiO2 01/16/19 10:38 97.7 84 16 106/61 (76) 93 Room Air 97.7 01/16/19 02:32 3.0 Lab Results Laboratory Tests Test 01/14/19 11:10 01/14/19 11:15 01/14/19 11:35 01/14/19 14:53 Urine Collection Type Unknown Urine Color Yellow Urine Clarity Clear Urine pH 5.5 Urine Specific Pruden 1.015 Urine Protein Negative mg/dL (NEG-TRACE) Urine Glucose (UA) Negative mg/dL (NEG) Urine Ketones (Stick) Negative mg/dL (NEG) Urine Blood Negative (NEG) Urine Nitrite Negative (NEG) Urine Bilirubin Negative (NEG) Urine Urobilinogen Dipstick 0.2 mg/dL (0.2 mg/dL) Urine Leukocyte Esterase Trace (NEG) Urine RBC Occ /HPF (0-2) Urine WBC 1-4 /HPF (0-4) Urine Squamous Epithelial Cells Mod /LPF Urine Bacteria Few /HPF (0-FEW) Urine Mucus Mod /LPF White Blood Count 7.7 x10^3/uL (4.0-11.0) Red Blood Count 4.87 x10^6/uL (3.50-5.40) Hemoglobin 15.8 g/dL (12.0-15.5) Hematocrit 46.2 % (36.0-47.0) Mean Corpuscular Volume 95 fL (79-100) Mean Corpuscular Hemoglobin 33 pg (25-35) Mean Corpuscular Hemoglobin Concent 34 g/dL (31-37) Red Cell Distribution Width 13.0 % (11.5-14.5) Platelet Count 231 x10^3/uL (140-400) Neutrophils (%) (Auto) 71 % (31-73) Lymphocytes (%) (Auto) 17 % (24-48) Monocytes (%) (Auto) 8 % (0-9) Eosinophils (%) (Auto) 3 % (0-3) Basophils (%) (Auto) 1 % (0-3) Neutrophils # (Auto) 5.5 x10^3/uL (1.8-7.7) Lymphocytes # (Auto) 1.3 x10^3/uL (1.0-4.8) Monocytes # (Auto) 0.6 x10^3/uL (0.0-1.1) Eosinophils # (Auto) 0.2 x10^3/uL (0.0-0.7) Basophils # (Auto) 0.1 x10^3/uL (0.0-0.2) Prothrombin Time 12.6 SEC (11.7-14.0) Prothromb Time International Ratio 1.0 (0.8-1.1) Sodium Level 141 mmol/L (136-145) Potassium Level 4.7 mmol/L (3.5-5.1) Chloride Level 106 mmol/L (98-107) Carbon Dioxide Level 23 mmol/L (21-32) Anion Gap 12 (6-14) Blood Urea Nitrogen 15 mg/dL (7-20) Creatinine 0.9 mg/dL (0.6-1.0) Estimated GFR (Cockcroft-Gault) 62.6 BUN/Creatinine Ratio 17 (6-20) Glucose Level 122 mg/dL (70-99) Lactic Acid Level 2.1 mmol/L (0.4-2.0) 2.3 mmol/L (0.4-2.0) Calcium Level 9.2 mg/dL (8.5-10.1) Total Bilirubin 0.5 mg/dL (0.2-1.0) Aspartate Amino Transf (AST/SGOT) 33 U/L (15-37) Alanine Aminotransferase (ALT/SGPT) 41 U/L (14-59) Alkaline Phosphatase 102 U/L (46-116) Creatine Kinase 91 U/L (26-192) Troponin I Quantitative < 0.017 ng/mL (0.000-0.055) KU-Iev-T-Type Natriuretic Peptide 198 pg/mL (0-124) Total Protein 7.3 g/dL (6.4-8.2) Albumin 3.6 g/dL (3.4-5.0) Albumin/Globulin Ratio 1.0 (1.0-1.7) O2 Saturation 93 % (92-99) Arterial Blood pH 7.45 (7.35-7.45) Arterial Blood pCO2 at Patient Temp 34 mmHg (35-46) Arterial Blood pO2 at Patient Temp 65 mmHg (65-108) Arterial Blood HCO3 23 mmol/L (21-28) Arterial Blood Base Excess 0 mmol/L (-3-3) FiO2 21 Test 01/16/19 04:14 White Blood Count 8.2 x10^3/uL (4.0-11.0) Red Blood Count 4.22 x10^6/uL (3.50-5.40) Hemoglobin 13.5 g/dL (12.0-15.5) Hematocrit 40.2 % (36.0-47.0) Mean Corpuscular Volume 95 fL (79-100) Mean Corpuscular Hemoglobin 32 pg (25-35) Mean Corpuscular Hemoglobin Concent 34 g/dL (31-37) Red Cell Distribution Width 13.3 % (11.5-14.5) Platelet Count 209 x10^3/uL (140-400) Neutrophils (%) (Auto) 88 % (31-73) Lymphocytes (%) (Auto) 9 % (24-48) Monocytes (%) (Auto) 3 % (0-9) Eosinophils (%) (Auto) 0 % (0-3) Basophils (%) (Auto) 0 % (0-3) Neutrophils # (Auto) 7.2 x10^3/uL (1.8-7.7) Lymphocytes # (Auto) 0.8 x10^3/uL (1.0-4.8) Monocytes # (Auto) 0.2 x10^3/uL (0.0-1.1) Eosinophils # (Auto) 0.0 x10^3/uL (0.0-0.7) Basophils # (Auto) 0.0 x10^3/uL (0.0-0.2) Segmented Neutrophils % 85 % (35-66) Band Neutrophils % 4 % (0-9) Lymphocytes % 9 % (24-48) Monocytes % 2 % (0-10) Platelet Estimate Adequate (ADEQUATE) Sodium Level 146 mmol/L (136-145) Potassium Level 4.5 mmol/L (3.5-5.1) Chloride Level 112 mmol/L (98-107) Carbon Dioxide Level 24 mmol/L (21-32) Anion Gap 10 (6-14) Blood Urea Nitrogen 19 mg/dL (7-20) Creatinine 1.0 mg/dL (0.6-1.0) Estimated GFR (Cockcroft-Gault) 55.5 BUN/Creatinine Ratio 19 (6-20) Glucose Level 122 mg/dL (70-99) Calcium Level 8.4 mg/dL (8.5-10.1) Total Bilirubin 0.2 mg/dL (0.2-1.0) Aspartate Amino Transf (AST/SGOT) 16 U/L (15-37) Alanine Aminotransferase (ALT/SGPT) 28 U/L (14-59) Alkaline Phosphatase 78 U/L (46-116) Total Protein 6.7 g/dL (6.4-8.2) Albumin 3.0 g/dL (3.4-5.0) Albumin/Globulin Ratio 0.8 (1.0-1.7) Laboratory Tests Test 01/16/19 04:14 White Blood Count 8.2 x10^3/uL (4.0-11.0) Red Blood Count 4.22 x10^6/uL (3.50-5.40) Hemoglobin 13.5 g/dL (12.0-15.5) Hematocrit 40.2 % (36.0-47.0) Mean Corpuscular Volume 95 fL (79-100) Mean Corpuscular Hemoglobin 32 pg (25-35) Mean Corpuscular Hemoglobin Concent 34 g/dL (31-37) Red Cell Distribution Width 13.3 % (11.5-14.5) Platelet Count 209 x10^3/uL (140-400) Neutrophils (%) (Auto) 88 % (31-73) Lymphocytes (%) (Auto) 9 % (24-48) Monocytes (%) (Auto) 3 % (0-9) Eosinophils (%) (Auto) 0 % (0-3) Basophils (%) (Auto) 0 % (0-3) Neutrophils # (Auto) 7.2 x10^3/uL (1.8-7.7) Lymphocytes # (Auto) 0.8 x10^3/uL (1.0-4.8) Monocytes # (Auto) 0.2 x10^3/uL (0.0-1.1) Eosinophils # (Auto) 0.0 x10^3/uL (0.0-0.7) Basophils # (Auto) 0.0 x10^3/uL (0.0-0.2) Segmented Neutrophils % 85 % (35-66) Band Neutrophils % 4 % (0-9) Lymphocytes % 9 % (24-48) Monocytes % 2 % (0-10) Platelet Estimate Adequate (ADEQUATE) Sodium Level 146 mmol/L (136-145) Potassium Level 4.5 mmol/L (3.5-5.1) Chloride Level 112 mmol/L (98-107) Carbon Dioxide Level 24 mmol/L (21-32) Anion Gap 10 (6-14) Blood Urea Nitrogen 19 mg/dL (7-20) Creatinine 1.0 mg/dL (0.6-1.0) Estimated GFR (Cockcroft-Gault) 55.5 BUN/Creatinine Ratio 19 (6-20) Glucose Level 122 mg/dL (70-99) Calcium Level 8.4 mg/dL (8.5-10.1) Total Bilirubin 0.2 mg/dL (0.2-1.0) Aspartate Amino Transf (AST/SGOT) 16 U/L (15-37) Alanine Aminotransferase (ALT/SGPT) 28 U/L (14-59) Alkaline Phosphatase 78 U/L (46-116) Total Protein 6.7 g/dL (6.4-8.2) Albumin 3.0 g/dL (3.4-5.0) Albumin/Globulin Ratio 0.8 (1.0-1.7) Brief Hospital Course Ms. Sanchez is a 68 old white female, smoker, O2 depndent 3 L at home, admitted for COPD flare, no PNA on CXR, OBS status, Augmentin on file but im sure if itw as for this reason for admit, CO managed with pulmo. 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, tessalon perle, pred taper and z pack HOme today independent proc; none dc < 30 Discharge Information Condition at Discharge: Improved, Stable Disposition/Orders: D/C to Home Scheduled Amoxicillin/Potassium Clav (Amox Tr-K Clv 875-125 Mg Tab) 1 Each Tablet, 1 TAB PO BID for pneumonia for 10 Days, #20 Prescribed by: JEZ ENCARNACION MD on 03/27/181308 Last Action: HELD on 01/14/192056 by BALDEMAR FERNANDEZ Benzonatate (Benzonatate) 100 Mg Capsule, 100 MG PO [id number] for cough, #60 Prescribed by: CATRACHITO METCALF on 01/16/19 1041 Ipratropium/Albuterol Sulfate (Duoneb 0.5-3(2.5) Mg/3 Ml) 3 Ml Ampul.neb, 3 ML NEB RTQID for copd for 30 Days, #120 Prescribed by: JEZ ENCARNACION MD on 03/27/181308 Last Action: HELD on 01/14/192056 by BALDEMAR FERNANDEZ Lactobacillus Rhamnosus Gg (Culturelle) 1 Each Cap.sprink, 1 CAP PO BID for supplement for 14 Days, #28 Prescribed by: JEZ ENCARNACION MD on 03/27/181308 Last Action: Continued on 01/14/192056 by BALDEMAR FERNANDEZ Nabumetone (Nabumetone) 750 Mg Tablet, 2 TAB PO DAILY for anti-inflammatory, #60 Ref 1 (Reported) Entered as Reported by: CALEB VILLALPANDO on 03/20/182234 Last Action: Converted on 01/14/192056 by BALDEMAR FERNANDEZ Trazodone Hcl (Trazodone Hcl) 300 Mg Tablet, 1 TAB PO QHS for insomnia, #30 Ref 1 (Reported) Entered as Reported by: CALEB VILLALPANDO on 03/20/182234 Last Action: Converted on 01/14/192056 by BALDEMAR FERNANDEZ Scheduled PRN Acetaminophen (Tylenol) 325 Mg Tablet, 650 MG PO PRN Q6HRS PRN for Headaches, Temp > 101.5F for 14 Days, #60 Prescribed by: JEZ ENCARNACION MD on 03/27/181308 Last Action: Continued on 01/14/192056 by BALDEMAR FERNANDEZ Albuterol Sulfate (Proair Hfa Inhaler) 8.5 Gm Hfa.aer.ad, 1 PUFF INH PRN Q6HRS PRN for SHORTNESS OF BREATH for 30 Days, Ref 0 Prescribed by: CATRACHITO METCALF on 01/16/19 1041 Discontinued Medications Prednisone (Prednisone) 20 Mg Tablet, 2 TAB PO DAILY for 5 Days, #10 Prescribed by: KAVEH GALEAS APRN on 08/15/18 0025 Last Action: HELD on 01/14/192056 by CATRACHITO MCCARTHY MD Jan 16, 2019 10:45
[2019-01-16] MEDS ORDERED: BUDE180A IH (10:46)
[2019-01-16] MEDS ORDERED: MONT10TA49 PO (10:46)
--- NOTE | 2019-01-16 11:18 | NUR ---
SW following. Discussed with RN, RN advised no SW needs at this time - pt already has home o2. Pt discharging home today with self care.
--- NOTE | 2019-01-16 12:37 | NUR ---
Pt left unit via private vehicle with . Pt left by wheelchair. Pt stable upon discharge, IV removed with no complications. Discharge and follow-up discussed with pt.
== END 2019-01-16 12:39 | disposition home or self-care (01) | DRG 189 ==
LOC: ER 10:54 → 6 SOUTH 12:27 → 5 SOUTH 01-15 23:30
PROVIDERS: ADMIT Internal Medicine; ATTEND Internal Medicine
DX: J96.20 Acute and chronic respiratory failure, unspecified whether with hypoxia or hypercapnia (principal); J44.1 Chronic obstructive pulmonary disease with (acute) exacerbation; G47.00 Insomnia, unspecified; F17.210 Nicotine dependence, cigarettes, uncomplicated; Z79.899 Other long term (current) drug therapy; Z82.49 Family history of ischemic heart disease and other diseases of the circulatory system; Z83.3 Family history of diabetes mellitus
CPT/HCPCS: 36415; 36600; 71045; 80053; 81001; 82550; 82805; 83605; 83880; 84484; 85007; 85025; 85610; 87040; 87086; 90471; 90686; 93005; 94640; 94760; 96361; 96374; 96375; J0696; J2405; J2920; J2930; J7030; J7620; 99285-25; G0378

== ENCOUNTER 2019-03-10 15:43 | Emergency (ER) | payer OTHER, MEDICAID ==
[~2019-03-10] VITALS: Ht 160 cm; Wt 54.4 kg
[~2019-03-10 15:43] MED LIST changes: +ALBU2.5V8 INH; +BENZ-8 PO; +BUDE180A IH; +MONT10TA49 PO
[2019-03-10] MEDS ORDERED: IPRATRPIUM/ALBUTEROL 0.5/2.5MG 3 ML NEBU. NEB ONE (16:00)
--- NOTE | 2019-03-10 16:09 | PHYS DOC ---
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 Patient states that it began earlier today she tried her inhalers at home to no relief. She states that she has been admitted to the hospital recently for COPD exacerbation and has not really felt great since. She reports fever as high as 101 at home and cough productive of increased sputum. Patient denies chest pain, nausea, vomiting, abdominal pain, headache, confusion, dysuria, increased frequency, constipation, or diarrhea. Patient denies trauma. (KAVEH MURRY DO) Review of Systems Review of Systems Constitutional: Denies chills, reports fever Eyes: Denies redness or eye pain HENT: Denies nasal congestion or sore throat Respiratory: Reports cough and shortness of breath Cardiovascular: Denies chest pain or palpitations GI: Denies abdominal pain, nausea, or vomiting : Denies dysuria or hematuria Musculoskeletal: Denies back pain or joint pain Integument: Denies rash or skin lesions Neurologic: Denies headache, focal weakness or sensory changes Complete systems were reviewed and found to be within normal limits, except as documented in this note. (KAVEH MURRY DO) Current Medications Current Medications Current Medications Medications (Trade) Dose Ordered Sig/Jailyn Start Time Stop Time Status Last Admin Dose Admin Acetaminophen/ Butalbital/ Caffeine (Fioricet) 2 tab 1X ONCE 03/10/19 17:45 03/10/19 17:58 DC 03/10/19 18:19 2 TAB Albuterol/ Ipratropium (Duoneb) 3 ml 1X ONCE 03/10/19 16:00 03/10/19 16:05 DC 03/10/19 16:09 3 ML Dexamethasone Sodium Phosphate (Decadron) 10 mg 1X ONCE 03/10/19 16:30 03/10/19 16:31 DC 03/10/19 16:41 10 MG Iohexol (Omnipaque 350 Mg/ml) 90 ml 1X ONCE 03/10/19 18:45 03/10/19 18:46 DC 03/10/19 18:54 90 ML Magnesium Sulfate 50 ml @ 25 mls/hr 1X ONCE 03/10/19 18:00 03/10/19 19:59 03/10/19 18:19 25 MLS/HR Sodium Chloride 1,000 ml @ 1,000 mls/hr 1X ONCE 03/10/19 17:45 03/10/19 18:44 DC 03/10/19 17:45 1,000 MLS/HR (YULY GUY MD) Allergies Allergies Allergies Coded Allergies Type Severity Reaction Last Updated Verified morphine Allergy Severe rash and throat swelling 01/25/16 Yes meperidine Allergy Intermediate rash 07/06/15 Yes (YULY GUY MD) Physical Exam Physical Exam Constitutional: Well developed, well nourished, no acute distress, non-toxic mango earance HENT: Normocephalic, atraumatic, oropharynx moist Eyes: Conjunctiva normal, no discharge Neck: Normal range of motion, no tenderness, supple Cardiovascular: Heart rate normal, regular rhythm Lungs & Thorax: Wheezing heard throughout, mild respiratory distress Abdomen: Soft, no tenderness Skin: Warm, dry, no erythema, no rash Extremities: No tenderness, ROM intact, no edema Neurologic: Alert and oriented X 3, no focal deficits noted Psychologic: Affect normal, judgement normal (KAVEH MURRY DO) Current Patient Data Vital Signs Vital Signs Date Time Temp Pulse Resp B/P (MAP) Pulse Ox O2 Delivery O2 Flow Rate FiO2 03/10/19 16:12 95 Room Air 03/10/19 16:05 99.2 121 20 148/94 (112) 99.2 (YULY GUY MD) Lab Values Laboratory Tests Test 03/10/19 07:25 03/10/19 16:21 03/10/19 16:50 Influenza Type A Antigen Negative (NEGATIVE) Influenza Type B Antigen Negative (NEGATIVE) White Blood Count 7.9 x10^3/uL (4.0-11.0) Red Blood Count 4.94 x10^6/uL (3.50-5.40) Hemoglobin 16.0 g/dL (12.0-15.5) H Hematocrit 46.2 % (36.0-47.0) Mean Corpuscular Volume 94 fL (79-100) Mean Corpuscular Hemoglobin 32 pg (25-35) Mean Corpuscular Hemoglobin Concent 35 g/dL (31-37) Red Cell Distribution Width 13.0 % (11.5-14.5) Platelet Count 253 x10^3/uL (140-400) Neutrophils (%) (Auto) 73 % (31-73) Lymphocytes (%) (Auto) 17 % (24-48) L Monocytes (%) (Auto) 10 % (0-9) H Eosinophils (%) (Auto) 1 % (0-3) Basophils (%) (Auto) 0 % (0-3) Neutrophils # (Auto) 5.7 x10^3/uL (1.8-7.7) Lymphocytes # (Auto) 1.3 x10^3/uL (1.0-4.8) Monocytes # (Auto) 0.8 x10^3/uL (0.0-1.1) Eosinophils # (Auto) 0.1 x10^3/uL (0.0-0.7) Basophils # (Auto) 0.0 x10^3/uL (0.0-0.2) Prothrombin Time 12.3 SEC (11.7-14.0) Prothrombin Time INR 0.9 (0.8-1.1) Activated Partial Thromboplast Time 28 SEC (24-38) D-Dimer (Alexia) 0.68 ug/mlFEU (0.00-0.50) H Lactic Acid Level 1.3 mmol/L (0.4-2.0) Sodium Level 136 mmol/L (136-145) Potassium Level 4.2 mmol/L (3.5-5.1) Chloride Level 101 mmol/L (98-107) Carbon Dioxide Level 27 mmol/L (21-32) Anion Gap 8 (6-14) Blood Urea Nitrogen 13 mg/dL (7-20) Creatinine 0.8 mg/dL (0.6-1.0) Estimated GFR (Cockcroft-Gault) 71.8 BUN/Creatinine Ratio 16 (6-20) Glucose Level 102 mg/dL (70-99) H Calcium Level 8.9 mg/dL (8.5-10.1) Magnesium Level 1.6 mg/dL (1.8-2.4) L Total Bilirubin 0.9 mg/dL (0.2-1.0) Aspartate Amino Transferase (AST) 22 U/L (15-37) Alanine Aminotransferase (ALT) 27 U/L (14-59) Alkaline Phosphatase 85 U/L (46-116) Creatine Kinase 27 U/L (26-192) Creatine Kinase MB (Mass) < 0.5 ng/mL (0.0-3.6) Creatine Kinase MB Relative Index % (0-4) Troponin I Quantitative < 0.017 ng/mL (0.000-0.055) Total Protein 7.1 g/dL (6.4-8.2) Albumin 3.4 g/dL (3.4-5.0) Albumin/Globulin Ratio 0.9 (1.0-1.7) L Lipase 152 U/L (73-393) Laboratory Tests 03/10/19 16:21 Laboratory Tests 03/10/19 16:50 (YULY GUY MD) Lab Values Laboratory Tests Test 03/10/19 07:25 03/10/19 16:21 03/10/19 16:50 Influenza Type A Antigen Negative (NEGATIVE) Influenza Type B Antigen Negative (NEGATIVE) White Blood Count 7.9 x10^3/uL (4.0-11.0) Red Blood Count 4.94 x10^6/uL (3.50-5.40) Hemoglobin 16.0 g/dL (12.0-15.5) H Hematocrit 46.2 % (36.0-47.0) Mean Corpuscular Volume 94 fL (79-100) Mean Corpuscular Hemoglobin 32 pg (25-35) Mean Corpuscular Hemoglobin Concent 35 g/dL (31-37) Red Cell Distribution Width 13.0 % (11.5-14.5) Platelet Count 253 x10^3/uL (140-400) Neutrophils (%) (Auto) 73 % (31-73) Lymphocytes (%) (Auto) 17 % (24-48) L Monocytes (%) (Auto) 10 % (0-9) H Eosinophils (%) (Auto) 1 % (0-3) Basophils (%) (Auto) 0 % (0-3) Neutrophils # (Auto) 5.7 x10^3/uL (1.8-7.7) Lymphocytes # (Auto) 1.3 x10^3/uL (1.0-4.8) Monocytes # (Auto) 0.8 x10^3/uL (0.0-1.1) Eosinophils # (Auto) 0.1 x10^3/uL (0.0-0.7) Basophils # (Auto) 0.0 x10^3/uL (0.0-0.2) Prothrombin Time 12.3 SEC (11.7-14.0) Prothrombin Time INR 0.9 (0.8-1.1) Activated Partial Thromboplast Time 28 SEC (24-38) D-Dimer (Alexia) 0.68 ug/mlFEU (0.00-0.50) H Lactic Acid Level 1.3 mmol/L (0.4-2.0) Sodium Level 136 mmol/L (136-145) Potassium Level 4.2 mmol/L (3.5-5.1) Chloride Level 101 mmol/L (98-107) Carbon Dioxide Level 27 mmol/L (21-32) Anion Gap 8 (6-14) Blood Urea Nitrogen 13 mg/dL (7-20) Creatinine 0.8 mg/dL (0.6-1.0) Estimated GFR (Cockcroft-Gault) 71.8 BUN/Creatinine Ratio 16 (6-20) Glucose Level 102 mg/dL (70-99) H Calcium Level 8.9 mg/dL (8.5-10.1) Magnesium Level 1.6 mg/dL (1.8-2.4) L Total Bilirubin 0.9 mg/dL (0.2-1.0) Aspartate Amino Transferase (AST) 22 U/L (15-37) Alanine Aminotransferase (ALT) 27 U/L (14-59) Alkaline Phosphatase 85 U/L (46-116) Creatine Kinase 27 U/L (26-192) Creatine Kinase MB (Mass) < 0.5 ng/mL (0.0-3.6) Creatine Kinase MB Relative Index % (0-4) Troponin I Quantitative < 0.017 ng/mL (0.000-0.055) Total Protein 7.1 g/dL (6.4-8.2) Albumin 3.4 g/dL (3.4-5.0) Albumin/Globulin Ratio 0.9 (1.0-1.7) L Lipase 152 U/L (73-393) Laboratory Tests 03/10/19 16:21 Laboratory Tests 03/10/19 16:50 (KAVEH MURRY DO) EKG EKG EKG at 1610 shows sinus tachycardia at 117 bpm, no ST elevations (KAVEH MURRY DO) Radiology/Procedures Radiology/Procedures PROCEDURE: CHEST PA & LATERAL EXAM: Chest, 2 views per HISTORY: Shortness of breath. COMPARISON: 01/14/2019 FINDINGS: 2 views of the chest are obtained. There is suspected bilateral lower lobe atelectasis or chronic interstitial change. There is slight increased right upper lobe opacity which is new compared to the prior study and possibly due to interstitial infiltrate. No consolidation, protrusion or pneumothorax is seen. The heart is normal in size. IMPRESSION: Possible right upper lobe interstitial infiltrate. Electronically signed by: Darleen Raza MD (03/10/2019 4:47 PM) [facility] (KAVEH MURRY DO) Radiology/Procedures [facility] [address] [place] [address] IMAGING REPORT Signed PATIENT: ANN-MARIE HATCH AACCOUNT: [id number] : 1950 LOCATION: ER AGE: 68 SEX: F EXAM STATUS: REG ER ORD. PHYSICIAN: KAVEH MURRY DO REASON: SOB, PE eval PROCEDURE: CT ANGIOGRAPHY CHEST CTA Chest with contrast: Clinical History: Shortness of breath. Axial helical images of the chest were obtained after the administration of 100 cc of IV Isovue-370 and timed appropriately for a pulmonary arterial study. Conventional axial reconstruction was performed in addition to coronal, sagittal and bilateral oblique MIP (maximum intensity projection). This study was ordered to detect possible pulmonary embolism. There are no filling defects to suggest pulmonary embolism. The more peripheral subsegmental pulmonary arteries are not well opacified limiting our sensitivity for small peripheral pulmonary emboli. There is respiratory motion. This patchy opacity in the lower lobes bilaterally. There is no mediastinal or hilar lymphadenopathy. The thoracic aorta appears normal. Impression: 1. No evidence of pulmonary embolism. 2. Bilateral lower lobe infiltrates likely pneumonia. PQRS Compliance Statement: One or more of the following individualized dose reduction techniques were utilized for this examination: 1. Automated exposure control 2. Adjustment of the mA and/or kV according to patient size 3. Use of iterative reconstruction technique Electronically signed by: Callie Waite III, MD (03/10/2019 7:03 PM) [facility] DICTATED and SIGNED BY: CALLIE WAITE III, MD DATE: 03/10/191902 (YULY GUY MD) Course & Med Decision Making Course & Med Decision Making Pertinent Labs and Imaging studies reviewed. (See chart for details) Patient is a 68-year-old female with past medical history of COPD was present to [facility] department with shortness of breath. Patient was seen and evaluated at bedside. Physical exam significant for wheezing heard throughout and mild respiratory distress. Labs and imaging ordered. Breathing treatments initiated. EKG at 1610 shows sinus tachycardia at 117 bpm, no ST elevations. CXR shows possible right upper lobe interstitial infiltrate. D-dimer elevated, CT angio pending. Sign out given to Dr. Guy for further evaluation and final disposition. Discussed current findings and plan with patient and family, who acknowledge understanding and agreement. (KAVEH MURRY DO) Dragon Disclaimer Dragon Disclaimer This electronic medical record was generated, in whole or in part, using a voice recognition dictation system. (KAVEH MURRY DO) Departure Departure Impression: Primary Impression: COPD exacerbation Additional Impression: Pneumonia Disposition: 09 ADMITTED INPATIENT Condition: STABLE Referrals: NO PCP (PCP) Patient Instructions: Chronic Obstructive Pulmonary Disease Exacerbation, Oemg-vh-[id number], Pneumonia, Adult Additional Instructions: Recommend follow up with PCP 3 - 5 days Return to the ER with worsening symptoms, intractable pain, fever, altered mental status Tylenol/Motrin as needed for pain Take antibiotics as directed Scripts Levofloxacin (LEVAQUIN) 750 Mg Tablet 1 TAB PO DAILY for 7 Days, #7 TAB 0 Refills Prov: YULY GUY MD 03/10/19 Problem Qualifiers Additional Impression: Pneumonia Pneumonia type: due to unspecified organism Laterality: bilateral Lung location: lower lobe of lung Qualified Codes: J18.9 - Pneumonia, unspecified organism KAVEH MURRY DO Mar 10, 2019 16:09 YULY GUY MD Mar 10, 2019 19:13
[2019-03-10 16:30] LABS: BASO % 0 % (0-3); EOS # 0.1 x10^3/uL (0.0-0.7); EOS % 1 % (0-3); HEMATOCRIT 46.2 % (36.0-47.0); LYMPH # 1.3 x10^3/uL (1.0-4.8); LYMPH % 17 % (24-48); MEAN CORPUSCULAR HEMOGLOBIN 32 pg (25-35); MEAN CORPUSCULAR HGB CONC 35 g/dL (31-37); MEAN CORPUSCULAR VOLUME 94 fL (79-100); MONO # 0.8 x10^3/uL (0.0-1.1); MONO % 10 % (0-9); NEUT # 5.7 x10^3/uL (1.8-7.7); NEUT % 73 % (31-73); PLATELET COUNT 253 x10^3/uL (140-400); RED BLOOD COUNT 4.94 x10^6/uL (3.50-5.40); WHITE BLOOD COUNT 7.9 x10^3/uL (4.0-11.0)
[2019-03-10] MEDS ORDERED: DEXAMETHASONE SOD PHOS 4 MG/ML VIAL IVP ONE (16:30)
--- NOTE | 2019-03-10 16:30 | EKG ---
[facility] [address] [place] [address] Test Date: 2019-03-10 Test Time: 16:10:14 Pat Name: ANN-MARIE HATCH Department: Room: Gender: F Credit Review Manager: : 1950 Requested By: KAVEH MURRY Order Number: [id number] Reading MD: Measurements Intervals Alloy Rate: 117 P: 60 IN: 160 QRS: 18 QRSD: 64 T: 46 QT: 296 QTc: 417 Interpretive Statements SINUS TACHYCARDIA LEFT ATRIAL ABNORMALITY QRS(T) CONTOUR ABNORMALITY CONSIDER ANTEROLATERAL MYOCARDIAL DAMAGE ABNORMAL ECG RI6.01 No previous ECG available for comparison
[2019-03-10 16:47] LABS: INFLUENZA A PATIENT NEGATIVE (NEGATIVE); INFLUENZA B PATIENT NEGATIVE (NEGATIVE)
[2019-03-10 16:49] LABS: PROTHROMBIN TIME PATIENT 12.3 SEC (11.7-14.0)
--- NOTE | 2019-03-10 16:50 | RAD ---
EXAM: Chest, 2 views per HISTORY: Shortness of breath. COMPARISON: 01/14/2019 FINDINGS: 2 views of the chest are obtained. There is suspected bilateral lower lobe atelectasis or chronic interstitial change. There is slight increased right upper lobe opacity which is new compared to the prior study and possibly due to interstitial infiltrate. No consolidation, protrusion or pneumothorax is seen. The heart is normal in size. IMPRESSION: Possible right upper lobe interstitial infiltrate. Electronically signed by: Darleen Raza MD (03/10/2019 4:47 PM) [place] [id number]
[2019-03-10 17:10] LABS: CALCIUM 8.9 mg/dL (8.5-10.1); CREATININE 0.8 mg/dL (0.6-1.0); GFR 71.8; POTASSIUM 4.2 mmol/L (3.5-5.1)
[2019-03-10 17:16] LABS: ALBUMIN 3.4 g/dL (3.4-5.0); ALBUMIN/GLOBULIN RATIO 0.9 (1.0-1.7); MAGNESIUM 1.6 mg/dL (1.8-2.4); TOTAL BILIRUBIN 0.9 mg/dL (0.2-1.0); TOTAL PROTEIN 7.1 g/dL (6.4-8.2)
[2019-03-10 17:27] LABS: CREATINE KINASE 27 U/L (26-192)
[2019-03-10] MEDS ORDERED: IV NORMAL SALINE 1000ML BAG 1,000 ML IV ONE (17:45)
[2019-03-10] MEDS ORDERED: BUTALB/APAP/CAFEIN 50/325/40MG TABLET. PO ONE (17:45)
[2019-03-10] MEDS ORDERED: MAGNESIUM SULFATE 2GM 50 ML IV ONE (18:00)
[2019-03-10] MEDS ORDERED: IOHEXOL 350 MG/ML 100 ML VIAL. IV ONE (18:45)
[2019-03-10 19:00] VITALS: BP 148/84
--- NOTE | 2019-03-10 19:07 | RAD ---
CTA Chest with contrast: Clinical History: Shortness of breath. Axial helical images of the chest were obtained after the administration of 100 cc of IV Isovue-370 and timed appropriately for a pulmonary arterial study. Conventional axial reconstruction was performed in addition to coronal, sagittal and bilateral oblique MIP (maximum intensity projection). This study was ordered to detect possible pulmonary embolism. There are no filling defects to suggest pulmonary embolism. The more peripheral subsegmental pulmonary arteries are not well opacified limiting our sensitivity for small peripheral pulmonary emboli. There is respiratory motion. This patchy opacity in the lower lobes bilaterally. There is no mediastinal or hilar lymphadenopathy. The thoracic aorta appears normal. Impression: 1. No evidence of pulmonary embolism. 2. Bilateral lower lobe infiltrates likely pneumonia. PQRS Compliance Statement: One or more of the following individualized dose reduction techniques were utilized for this examination: 1. Automated exposure control 2. Adjustment of the mA and/or kV according to patient size 3. Use of iterative reconstruction technique Electronically signed by: Issac Hill III, MD (03/10/2019 7:03 PM) [facility]
[2019-03-10] MEDS ORDERED: LEVO750T31 PO (19:13)
[2019-03-10] MEDS ORDERED: ALBU2.5V5 NEB (19:17)
== END 2019-03-10 19:33 | disposition home or self-care (01) ==
LOC: ER 15:43
DX: J44.1 Chronic obstructive pulmonary disease with (acute) exacerbation (principal); J18.9 Pneumonia, unspecified organism; Z90.81 Acquired absence of spleen; F17.210 Nicotine dependence, cigarettes, uncomplicated; Z88.5 Allergy status to narcotic agent; Z88.6 Allergy status to analgesic agent
CPT/HCPCS: 36415; 71046; 71275; 80053; 82553; 83605; 83690; 83735; 84484; 85025; 85379; 85610; 85730; 87804; 93005; 94640; 96365; 96375; 99285; J1100; J3475; J7030; J7620; Q9967

== ENCOUNTER 2019-04-18 23:22 | Inpatient (IN) | payer MEDICARE, MEDICAID ==
[~2019-04-18] VITALS: Ht 160 cm; Wt 64.9 kg
[~2019-04-18 23:22] MED LIST changes: +ALBU2.5V5 NEB; +LEVO750T31 PO
[2019-04-18] MEDS ORDERED: IV NORMAL SALINE 1000ML BAG 1,000 ML IV ONE (23:45)
--- NOTE | 2019-04-18 23:57 | PHYS DOC ---
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,POSSIBLE CA Past Surgical History: Splenectomy, Tubal ligation Additional Past Surgical Histo: TUBAL Smoking Status: Current Every Day Smoker Alcohol Use: None Drug Use: None Date and Time of Reassessment Date: Jan 14, 2019 Time: 01:13 Fluid Challenge Is the fluid challenge complet: No IBW Target Volume Used: Yes BMI > 30: No Vital Signs Vital Signs: Vital Signs Date Time Temp Pulse Resp B/P (MAP) Pulse Ox O2 Delivery O2 Flow Rate FiO2 04/19/19 00:30 100 19 120/63 (82) 98 Nasal Cannula 4.0 04/19/19 00:00 100.1 100.1 Temperature Source: Oral Respirations Respiratory Effort: Shortness of breath Respiratory Pattern: Tachypnea Cardiovascular Pulse Rhythm: Irregular Heart: Nml S1, S2, no murmurs Lung Sounds Breath Sounds: Coarse, Rhonchi, Diminished Capillary Refil Capillary Refill: Rt Hand < 3 seconds Peripheral Pulse Pulse Location: Monitor Pulse Strength: Normal (2+) Pulse Assessment Method: Monitor Integumentary Skin Moisture: Dry Adult General Chief Complaint Chief Complaint: GENERALIZED BODY ACHES HPI HPI 69 year-old male with underlying history of hypertension, COPD presents to the emergency Department complaints of body aches, fever, headache. Patient states she flew home from [facility] yesterday. States symptoms started last night. Patient denies nausea, vomiting, diarrhea. She complains of abdominal pain with coughing/breathing. She is currently febrile on exam. Nothing makes her symptoms better, nothing makes her symptoms worse. Review of Systems Review of Systems Constitutional: fever Eyes: Denies change in visual acuity, redness, or eye pain [] HENT: Denies nasal congestion or sore throat [] Respiratory: Denies cough or shortness of breath [] Cardiovascular: No additional information not addressed in HPI [] GI: Denies abdominal pain, nausea, vomiting, bloody stools or diarrhea [] : Denies dysuria or hematuria [] Musculoskeletal: Denies back pain or joint pain [] Integument: Denies rash or skin lesions [] Neurologic: Denies headache, focal weakness or sensory changes [] Endocrine: Denies polyuria or polydipsia [] All other systems were reviewed and found to be within normal limits, except as documented in this note. Current Medications Current Medications Current Medications Medications (Trade) Dose Ordered Sig/Jailyn Start Time Stop Time Status Last Admin Dose Admin Albuterol/ Ipratropium (Duoneb) 3 ml 1X ONCE 04/19/19 01:15 04/19/19 01:16 DC Diphenhydramine HCl (Benadryl) 25 mg 1X ONCE 04/19/19 00:15 04/19/19 00:16 DC 04/19/19 00:26 25 MG Ketorolac Tromethamine (Toradol 30mg Vial) 30 mg 1X ONCE 04/19/19 00:15 04/19/19 00:16 DC 04/19/19 00:27 30 MG Metoclopramide HCl (Reglan Vial) 10 mg 1X ONCE 04/19/19 00:15 04/19/19 00:16 DC 04/19/19 00:27 10 MG Sodium Chloride 1,000 ml @ 1,000 mls/hr 1X ONCE 04/18/19 23:45 04/19/19 00:44 DC 04/19/19 00:26 1,000 MLS/HR Allergies Allergies Allergies Coded Allergies Type Severity Reaction Last Updated Verified morphine Allergy Severe rash and throat swelling 01/25/16 Yes meperidine Allergy Intermediate rash 07/06/15 Yes Physical Exam Physical Exam Constitutional: Well developed, well nourished, no acute distress, non-toxic appearance. [] HENT: Normocephalic, atraumatic, bilateral external ears normal, oropharynx moist, no oral exudates, nose normal. [] Eyes: PERRLA, EOMI, conjunctiva normal, no discharge. [] Neck: Normal range of motion, no tenderness, supple, no stridor. [] Cardiovascular:Heart rate regular rhythm, no murmur [] Lungs & Thorax: Bilateral breath sounds clear to auscultation [] Abdomen: Bowel sounds normal, soft, no tenderness, no masses, no pulsatile masses. [] Skin: Warm, dry, no erythema, no rash. [] Back: No tenderness, no CVA tenderness. [] Extremities: No tenderness, no cyanosis, no clubbing, ROM intact, no edema. [] Neurologic: Alert and oriented X 3, normal motor function, normal sensory function, no focal deficits noted. [] Psychologic: Affect normal, judgement normal, mood normal. [] Current Patient Data Vital Signs Vital Signs Date Time Temp Pulse Resp B/P (MAP) Pulse Ox O2 Delivery O2 Flow Rate FiO2 04/19/19 00:30 100 19 120/63 (82) 98 Nasal Cannula 4.0 04/19/19 00:00 100.1 100.1 Lab Values Laboratory Tests Test 04/18/19 23:48 White Blood Count 3.8 x10^3/uL (4.0-11.0) L Red Blood Count 4.63 x10^6/uL (3.50-5.40) Hemoglobin 14.8 g/dL (12.0-15.5) Hematocrit 43.8 % (36.0-47.0) Mean Corpuscular Volume 95 fL (79-100) Mean Corpuscular Hemoglobin 32 pg (25-35) Mean Corpuscular Hemoglobin Concent 34 g/dL (31-37) Red Cell Distribution Width 13.4 % (11.5-14.5) Platelet Count 190 x10^3/uL (140-400) Neutrophils (%) (Auto) 63 % (31-73) Lymphocytes (%) (Auto) 23 % (24-48) L Monocytes (%) (Auto) 13 % (0-9) H Eosinophils (%) (Auto) 1 % (0-3) Basophils (%) (Auto) 0 % (0-3) Neutrophils # (Auto) 2.4 x10^3/uL (1.8-7.7) Lymphocytes # (Auto) 0.9 x10^3/uL (1.0-4.8) L Monocytes # (Auto) 0.5 x10^3/uL (0.0-1.1) Eosinophils # (Auto) 0.0 x10^3/uL (0.0-0.7) Basophils # (Auto) 0.0 x10^3/uL (0.0-0.2) Sodium Level 137 mmol/L (136-145) Potassium Level 4.0 mmol/L (3.5-5.1) Chloride Level 101 mmol/L (98-107) Carbon Dioxide Level 24 mmol/L (21-32) Anion Gap 12 (6-14) Blood Urea Nitrogen 8 mg/dL (7-20) Creatinine 1.0 mg/dL (0.6-1.0) Estimated GFR (Cockcroft-Gault) 55.3 BUN/Creatinine Ratio 8 (6-20) Glucose Level 117 mg/dL (70-99) H Lactic Acid Level 2.7 mmol/L (0.4-2.0) H Calcium Level 8.3 mg/dL (8.5-10.1) L Total Bilirubin 0.5 mg/dL (0.2-1.0) Aspartate Amino Transferase (AST) 32 U/L (15-37) Alanine Aminotransferase (ALT) 25 U/L (14-59) Alkaline Phosphatase 81 U/L (46-116) Total Protein 6.8 g/dL (6.4-8.2) Albumin 3.3 g/dL (3.4-5.0) L Albumin/Globulin Ratio 0.9 (1.0-1.7) L Influenza Type A Antigen Positive (NEGATIVE) Influenza Type B Antigen Negative (NEGATIVE) Laboratory Tests 04/18/19 23:48 Laboratory Tests 04/18/19 23:48 EKG EKG [] Radiology/Procedures Radiology/Procedures [facility] [address] [place] [address] IMAGING REPORT Signed PATIENT: ANN-MARIE HATCH AACCOUNT: [id number] : 1950 LOCATION: [address] [place] [address] AGE: 69 SEX: F EXAM STATUS: ADM IN ORD. PHYSICIAN: YULY GUY MD REASON: cough/fever PROCEDURE: CHEST AP ONLY CHEST AP ONLY Clinical Indication: Cough, fever Comparison: Two-view chest 03/10/2019. Findings: The cardiomediastinal silhouette is normal. Mild bibasilar airspace disease. There is no pneumothorax. No pleural effusion is appreciated. No acute bone abnormality. Degenerative endplate spurring of the thoracic spine. IMPRESSION: Mild bibasilar airspace disease. Electronically signed by: Kristian Bob MD (04/19/2019 2:53 AM) [id number] DICTATED and SIGNED BY: KRISTIAN BOB MD DATE: 04/19/19 0253 [] Course & Med Decision Making Course & Med Decision Making Pertinent Labs and Imaging studies reviewed. (See chart for details) []69 year-old male with underlying history of hypertension, COPD presents to the emergency Department complaints of body aches, fever, headache. Patient states she flew home from [facility] yesterday. States symptoms started last night. Patient denies nausea, vomiting, diarrhea. She complains of abdominal pain with coughing/breathing. She is currently febrile on exam. Nothing makes her symptoms better, nothing makes her symptoms worse. Dragon Disclaimer Dragon Disclaimer This electronic medical record was generated, in whole or in part, using a voice recognition dictation system. Departure Departure Impression: Primary Impression: Sepsis Additional Impressions: Influenza A COPD without exacerbation Disposition: ADMITTED INPATIENT Admitting Physician: SERGIO Condition: IMPROVED Referrals: NO PCP (PCP) Critical Care Time Critical care time was 35 minutes exclusive of procedures. Problem Qualifiers Primary Impression: Sepsis Sepsis type: sepsis due to unspecified organism Sepsis acute organ dysfunction status: unspecified Qualified Codes: A41.9 - Sepsis, unspecified organism YULY GUY MD Apr 18, 2019 23:57
[2019-04-19 00:11] LABS: BASO % 0 % (0-3); EOS % 1 % (0-3); HEMATOCRIT 43.8 % (36.0-47.0); HEMOGLOBIN 14.8 g/dL (12.0-15.5); LYMPH # 0.9 x10^3/uL (1.0-4.8); LYMPH % 23 % (24-48); MEAN CORPUSCULAR HEMOGLOBIN 32 pg (25-35); MEAN CORPUSCULAR HGB CONC 34 g/dL (31-37); MEAN CORPUSCULAR VOLUME 95 fL (79-100); MONO # 0.5 x10^3/uL (0.0-1.1); MONO % 13 % (0-9); NEUT # 2.4 x10^3/uL (1.8-7.7); NEUT % 63 % (31-73); PLATELET COUNT 190 x10^3/uL (140-400); RED BLOOD COUNT 4.63 x10^6/uL (3.50-5.40); RED CELL DISTRIBUTION WIDTH 13.4 % (11.5-14.5); WHITE BLOOD COUNT 3.8 x10^3/uL (4.0-11.0)
[2019-04-19] MEDS ORDERED: KETOROLAC 30 MG/ML VIAL. IVP ONE (00:15)
[2019-04-19] MEDS ORDERED: METOCLOPRAMIDE HCL 10 MG/2 ML VIAL. IVP ONE (00:15)
[2019-04-19] MEDS ORDERED: diphenhydrAMINE 50 MG/ML VIAL IVP ONE (00:15)
[2019-04-19 00:16] LABS: INFLUENZA A PATIENT POSITIVE (NEGATIVE); INFLUENZA B PATIENT NEGATIVE (NEGATIVE)
[2019-04-19 00:19] LABS: ALBUMIN 3.3 g/dL (3.4-5.0); ALBUMIN/GLOBULIN RATIO 0.9 (1.0-1.7); GFR 55.3; TOTAL BILIRUBIN 0.5 mg/dL (0.2-1.0); TOTAL PROTEIN 6.8 g/dL (6.4-8.2)
[2019-04-19 00:29] LABS: CALCIUM 8.3 mg/dL (8.5-10.1)
[2019-04-19] MEDS ORDERED: IPRATRPIUM/ALBUTEROL 0.5/2.5MG 3 ML NEBU. NEB ONE (01:15)
[2019-04-19] MEDS: IV NORMAL SALINE 1000ML BAG 1,000 ML IV SCH ×4 (01:20→12:43)
[2019-04-19] MEDS ORDERED: ONDANSETRON PF 4 MG/2 ML VIAL. IV PRN (01:30)
[2019-04-19] MEDS ORDERED: OSELTAMIVIR 75 MG CAPSULE PO ONE (01:30)
--- NOTE | 2019-04-19 01:45 | NUR ---
The patient, ANN-MARIE HATCH, 69 y/o, F admitted by ZONIA MANCERA MD, was given written information regarding hospital policies, unit procedures and contact persons. RN received report from Divya IYER in the ED at 0131, patient was transported from the ED to room 422 at 0145 via bed with at bedside. RN performed a head to toe assessment at that time. Bed is in lowest locked position and call light is within reach. Valuables were checked and left with the patient in room .
[2019-04-19 02:24] VITALS: BP 113/69
--- NOTE | 2019-04-19 02:48 | NUR ---
patient and stated pt is not taking or or is not on any home medication .
--- NOTE | 2019-04-19 02:55 | RAD ---
CHEST AP ONLY Clinical Indication: Cough, fever Comparison: Two-view chest 03/10/2019. Findings: The cardiomediastinal silhouette is normal. Mild bibasilar airspace disease. There is no pneumothorax. No pleural effusion is appreciated. No acute bone abnormality. Degenerative endplate spurring of the thoracic spine. IMPRESSION: Mild bibasilar airspace disease. Electronically signed by: Kristian Jim MD (04/19/2019 2:53 AM) [id number]
[2019-04-19 07:00] VITALS: BP 115/79
[2019-04-19] MEDS: IPRATRPIUM/ALBUTEROL 0.5/2.5MG 3 ML NEBU. NEB SCH ×4 (08:01→19:43)
[2019-04-19] MEDS: ACETAMINOPHEN 325 MG TABLET. PO PRN ×2 (10:04→14:54)
[2019-04-19 11:00] VITALS: BP 106/65
--- NOTE | 2019-04-19 12:40 | PDOC1 ---
History and Physical Date of Admission Date of Admission 04/19/2019 Identification/Chief Complaint Chief Complaint I feel sick Source Source: Chart review, Patient History of Present Illness History of Present Illness Patient is a 69-year-old female with history of one day of sudden onset generalized malaise and body aches subjective fever cough sputum production no s train H and chest congestion. Patient came to the emergency department given that his symptoms were getting worse throughout the day. She had a hard time catching her breath due to the coughing spells and during her evaluation the patient was found to be flu A+. Patient also has evidence of bibasilar infiltrates on her chest x-ray. Given the acuity of her symptoms we were asked to admit the patient for further treatment. At the time of my note the patient is laying in bed in moderate distress due to the aches and pains that she is being afflicted with. She denies chest pain per se or palpitations angina-type of symptoms she is able to finish whole sentences without increased work of breathing. The patient denies sick contacts no draws outside this area no pl eurisy reported. Plan of care was explained in detail to the patient and reassurance provided Past Medical History Cardiovascular: No pertinent hx Pulmonary: Other GI: No pertinent hx Heme/Onc: No pertinent hx Hepatobiliary: No pertinent hx Psych: No pertinent hx Infectious disease: No pertinent hx Renal/: No pertinent hx Endocrine: No pertinent hx Past Surgical History Past Surgical History: Tubal Ligation Family History Family History: No Significant Social History ALCOHOL: rare Drugs: Crystal meth Current Problem List Problem List Problems Medical Problems: (1) COPD without exacerbation Status: Acute (2) Influenza A Status: Acute (3) Sepsis Status: Acute Current Medications Current Medications Current Medications Medications (Trade) Dose Ordered Sig/Jailyn Start Time Stop Time Status Last Admin Dose Admin Acetaminophen (Tylenol) 650 mg PRN Q4HRS PRN 04/19/19 01:30 04/20/19 01:29 Albuterol/ Ipratropium (Duoneb) 3 ml RTQID 04/19/19 08:00 04/20/19 07:59 04/19/19 12:08 3 ML Diphenhydramine HCl (Benadryl) 25 mg 1X ONCE 04/19/19 00:15 04/19/19 00:16 DC 04/19/19 00:26 25 MG Ketorolac Tromethamine (Toradol 30mg Vial) 30 mg 1X ONCE 04/19/19 00:15 04/19/19 00:16 DC 04/19/19 00:27 30 MG Metoclopramide HCl (Reglan Vial) 10 mg 1X ONCE 04/19/19 00:15 04/19/19 00:16 DC 04/19/19 00:27 10 MG Ondansetron HCl (Zofran) 4 mg PRN Q8HRS PRN 04/19/19 01:30 04/20/19 01:29 Oseltamivir Phosphate (Tamiflu) 75 mg 1X ONCE 04/19/19 01:30 04/19/19 01:31 DC 04/19/19 01:25 75 MG Sodium Chloride 1,000 ml @ 100 mls/hr Q10H 04/19/19 01:30 04/20/19 01:29 04/19/19 02:01 100 MLS/HR Allergies Allergies Allergies Coded Allergies Type Severity Reaction Last Updated Verified morphine Allergy Severe rash and throat swelling 01/25/16 Yes meperidine Allergy Intermediate rash 07/06/15 Yes ROS Review of System CONSTITUTIONAL: No fever or chills EYES: No recent changes SKIN: No rash or itching CARDIOVASCULAR: No chest pain, syncope, palpitations, or edema RESPIRATORY: No SOB or cough GASTROINTESTINAL: No nausea, vomiting or abdominal pain NEUROLOGICAL: No headaches or weakness ENDOCRINE: No cold or heat intolerance GENITOURINARY: No urgency or frequency of urination MUSCULOSKELETAL: No back pain or joint pain LYMPHATICS: No enlarged lymph nodes PSYCHIATRIC: No anxiety or depression Physical Exam Physical Exam Gen.: Acutely ill looking frail and moderate distress Head: Normal shape atraumatic Eyes: Pupils equal reactive to light and accommodation, normal conjunctivae and lids Ears: Normal shape Nose: Normal shape no trauma Mouth: No exudates of the back of throat no thrush no lesions Neck: Supple no JVD no carotid bruit or lymphadenopathy no thyromegaly Chest: Lungs coarse to auscultation with good inspiratory effort no crackles or rales positive rhonchi Cardiovascular: S1-S2 regular rhythm no murmurs gallops or rubs Abdomen: Bowel sounds present soft nontender no hepatosplenomegaly appreciated sign Extremities: No clubbing no cyanosis no edema peripheral pulses palpated bilaterally Neurological: Alert awake oriented in person time place and situation, cranial nerves II through XII intact, no motor or sensory deficits appreciated Psych: Appropriate mood, cooperative Vitals Vitals Vital Signs Date Time Temp Pulse Resp B/P (MAP) Pulse Ox O2 Delivery O2 Flow Rate FiO2 04/19/19 12:09 98 Nasal Cannula 3.0 04/19/19 11:00 98.5 81 18 106/65 (79) 98.5 Labs Labs Laboratory Tests Test 04/18/19 23:48 04/19/19 03:30 White Blood Count 3.8 x10^3/uL (4.0-11.0) Red Blood Count 4.63 x10^6/uL (3.50-5.40) Hemoglobin 14.8 g/dL (12.0-15.5) Hematocrit 43.8 % (36.0-47.0) Mean Corpuscular Volume 95 fL (79-100) Mean Corpuscular Hemoglobin 32 pg (25-35) Mean Corpuscular Hemoglobin Concent 34 g/dL (31-37) Red Cell Distribution Width 13.4 % (11.5-14.5) Platelet Count 190 x10^3/uL (140-400) Neutrophils (%) (Auto) 63 % (31-73) Lymphocytes (%) (Auto) 23 % (24-48) Monocytes (%) (Auto) 13 % (0-9) Eosinophils (%) (Auto) 1 % (0-3) Basophils (%) (Auto) 0 % (0-3) Neutrophils # (Auto) 2.4 x10^3/uL (1.8-7.7) Lymphocytes # (Auto) 0.9 x10^3/uL (1.0-4.8) Monocytes # (Auto) 0.5 x10^3/uL (0.0-1.1) Eosinophils # (Auto) 0.0 x10^3/uL (0.0-0.7) Basophils # (Auto) 0.0 x10^3/uL (0.0-0.2) Sodium Level 137 mmol/L (136-145) Potassium Level 4.0 mmol/L (3.5-5.1) Chloride Level 101 mmol/L (98-107) Carbon Dioxide Level 24 mmol/L (21-32) Anion Gap 12 (6-14) Blood Urea Nitrogen 8 mg/dL (7-20) Creatinine 1.0 mg/dL (0.6-1.0) Estimated GFR (Cockcroft-Gault) 55.3 BUN/Creatinine Ratio 8 (6-20) Glucose Level 117 mg/dL (70-99) Lactic Acid Level 2.7 mmol/L (0.4-2.0) 0.8 mmol/L (0.4-2.0) Calcium Level 8.3 mg/dL (8.5-10.1) Total Bilirubin 0.5 mg/dL (0.2-1.0) Aspartate Amino Transf (AST/SGOT) 32 U/L (15-37) Alanine Aminotransferase (ALT/SGPT) 25 U/L (14-59) Alkaline Phosphatase 81 U/L (46-116) Total Protein 6.8 g/dL (6.4-8.2) Albumin 3.3 g/dL (3.4-5.0) Albumin/Globulin Ratio 0.9 (1.0-1.7) Influenza Type A Antigen Positive (NEGATIVE) Influenza Type B Antigen Negative (NEGATIVE) Laboratory Tests Test 04/18/19 23:48 04/19/19 03:30 White Blood Count 3.8 x10^3/uL (4.0-11.0) Red Blood Count 4.63 x10^6/uL (3.50-5.40) Hemoglobin 14.8 g/dL (12.0-15.5) Hematocrit 43.8 % (36.0-47.0) Mean Corpuscular Volume 95 fL (79-100) Mean Corpuscular Hemoglobin 32 pg (25-35) Mean Corpuscular Hemoglobin Concent 34 g/dL (31-37) Red Cell Distribution Width 13.4 % (11.5-14.5) Platelet Count 190 x10^3/uL (140-400) Neutrophils (%) (Auto) 63 % (31-73) Lymphocytes (%) (Auto) 23 % (24-48) Monocytes (%) (Auto) 13 % (0-9) Eosinophils (%) (Auto) 1 % (0-3) Basophils (%) (Auto) 0 % (0-3) Neutrophils # (Auto) 2.4 x10^3/uL (1.8-7.7) Lymphocytes # (Auto) 0.9 x10^3/uL (1.0-4.8) Monocytes # (Auto) 0.5 x10^3/uL (0.0-1.1) Eosinophils # (Auto) 0.0 x10^3/uL (0.0-0.7) Basophils # (Auto) 0.0 x10^3/uL (0.0-0.2) Sodium Level 137 mmol/L (136-145) Potassium Level 4.0 mmol/L (3.5-5.1) Chloride Level 101 mmol/L (98-107) Carbon Dioxide Level 24 mmol/L (21-32) Anion Gap 12 (6-14) Blood Urea Nitrogen 8 mg/dL (7-20) Creatinine 1.0 mg/dL (0.6-1.0) Estimated GFR (Cockcroft-Gault) 55.3 BUN/Creatinine Ratio 8 (6-20) Glucose Level 117 mg/dL (70-99) Lactic Acid Level 2.7 mmol/L (0.4-2.0) 0.8 mmol/L (0.4-2.0) Calcium Level 8.3 mg/dL (8.5-10.1) Total Bilirubin 0.5 mg/dL (0.2-1.0) Aspartate Amino Transf (AST/SGOT) 32 U/L (15-37) Alanine Aminotransferase (ALT/SGPT) 25 U/L (14-59) Alkaline Phosphatase 81 U/L (46-116) Total Protein 6.8 g/dL (6.4-8.2) Albumin 3.3 g/dL (3.4-5.0) Albumin/Globulin Ratio 0.9 (1.0-1.7) Influenza Type A Antigen Positive (NEGATIVE) Influenza Type B Antigen Negative (NEGATIVE) VTE Prophylaxis Ordered VTE Prophylaxis Devices: Yes (SCD) VTE Pharmacological Prophylaxi: No Assessment/Plan Assessment/Plan Influenza A Elevated lactic acid Bilateral lower lobe infiltrates, will treat as Community acquired pneumonia Tobacco abuse COPD likely Tobacco abuse counseling less than 10 minutes Plan: Start steroids if she doesn't have improvement Continue Tamiflu Diet Rocephin and Zithromax for community-acquired pneumonia Immunization therapy Flutter valve Symptomatic relief of symptoms Further recommendations based on the clinical course The prophylaxis with Lovenox ZONIA MANCERA MD Apr 19, 2019 12:40
[2019-04-19] MEDS: cefTRIAXone IV Push 1 GM VIAL. IVP SCH (14:54)
[2019-04-19] MEDS: ENOXAPARIN 40 MG/0.4 ML SYRINGE. SQ SCH (14:54)
[2019-04-19] MEDS: AZITHROMYCIN 500 MG in IV NORMAL SALINE 250ML 250 ML IV SCH (14:55)
[2019-04-19 15:00] VITALS: BP 96/48
[2019-04-19] MEDS ORDERED: ALBUTEROL SULFATE 2.5 MG/3 ML NEBU. NEB PRN (17:15)
[2019-04-19 19:00] VITALS: BP 91/55
[2019-04-19] MEDS: OSELTAMIVIR 30 MG CAPSULE PO SCH (21:21)
[2019-04-19] MEDS: LACTOBACILLUS RHAMNOSUS GG 1 CAPSULE. PO SCH (21:21)
[2019-04-19 23:00] VITALS: BP 107/73
[2019-04-20] MEDS: IV NORMAL SALINE 1000ML BAG 1,000 ML IV SCH (02:30)
[2019-04-20] MEDS ORDERED: ACETAMINOPHEN 325 MG TABLET. PO PRN (02:45)
[2019-04-20 03:00] VITALS: BP 128/83
[2019-04-20 05:09] LABS: BASO % 1 % (0-3); EOS % 2 % (0-3); HEMATOCRIT 42.4 % (36.0-47.0); HEMOGLOBIN 14.4 g/dL (12.0-15.5); LYMPH # 1.1 x10^3/uL (1.0-4.8); LYMPH % 42 % (24-48); MEAN CORPUSCULAR HEMOGLOBIN 32 pg (25-35); MEAN CORPUSCULAR HGB CONC 34 g/dL (31-37); MEAN CORPUSCULAR VOLUME 95 fL (79-100); MONO # 0.3 x10^3/uL (0.0-1.1); MONO % 12 % (0-9); NEUT # 1.1 x10^3/uL (1.8-7.7); NEUT % 44 % (31-73); PLATELET COUNT 159 x10^3/uL (140-400); RED BLOOD COUNT 4.49 x10^6/uL (3.50-5.40); RED CELL DISTRIBUTION WIDTH 13.6 % (11.5-14.5); WHITE BLOOD COUNT 2.6 x10^3/uL (4.0-11.0)
[2019-04-20 06:04] LABS: ALBUMIN 2.8 g/dL (3.4-5.0); ALBUMIN/GLOBULIN RATIO 0.9 (1.0-1.7); CALCIUM 8.3 mg/dL (8.5-10.1); CREATININE 0.8 mg/dL (0.6-1.0); GFR 71.5; POTASSIUM 3.9 mmol/L (3.5-5.1); TOTAL BILIRUBIN 0.4 mg/dL (0.2-1.0); TOTAL PROTEIN 5.9 g/dL (6.4-8.2)
[2019-04-20 07:00] VITALS: BP 106/66
[2019-04-20] MEDS: IPRATRPIUM/ALBUTEROL 0.5/2.5MG 3 ML NEBU. NEB SCH ×4 (07:24→19:52)
[2019-04-20] MEDS: LACTOBACILLUS RHAMNOSUS GG 1 CAPSULE. PO SCH ×2 (08:11→20:44)
[2019-04-20] MEDS: OSELTAMIVIR 30 MG CAPSULE PO SCH ×2 (08:11→20:44)
--- NOTE | 2019-04-20 09:04 | EKG ---
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
--- NOTE | 2019-04-20 09:10 | NUR ---
SW following. Discussed with RN, pt from home with , up adlib. RN advised no SW needs at this time. SW will continue to follow.
--- NOTE | 2019-04-20 09:37 | NUR ---
IP: Pt is influenza + requiring droplet precautions for 7 days and 24 hours without a fever, whichever is longest.
[2019-04-20 11:00] VITALS: BP 121/72
--- NOTE | 2019-04-20 11:10 | PDOC ---
PROGRESS NOTES Chief Complaint Chief Complaint sepsis was POA Influenza A Bilateral lower lobe infiltrates, will treat as Community acquired pneumonia acute hypoxic respiratory failure Tobacco abuse COPD likely Tobacco abuse counseling less than 10 minutes History of Present Illness History of Present Illness myalgias lethargy, start percocet for pain control anti-tussives Continue Tamiflu Rocephin and Zithromax for community-acquired pneumonia, still hypoxia Immunization therapy Flutter valve Symptomatic relief of symptoms Further recommendations based on the clinical course The prophylaxis with Lovenox Vitals Vitals Vital Signs Date Time Temp Pulse Resp B/P (MAP) Pulse Ox O2 Delivery O2 Flow Rate FiO2 04/20/19 07:50 Nasal Cannula 3.0 04/20/19 07:27 89 04/20/19 07:00 98.3 74 18 106/66 (79) 98.3 Physical Exam Lungs: Crackles, Other Labs LABS Laboratory Tests Test 04/20/19 04:30 White Blood Count 2.6 x10^3/uL (4.0-11.0) Red Blood Count 4.49 x10^6/uL (3.50-5.40) Hemoglobin 14.4 g/dL (12.0-15.5) Hematocrit 42.4 % (36.0-47.0) Mean Corpuscular Volume 95 fL (79-100) Mean Corpuscular Hemoglobin 32 pg (25-35) Mean Corpuscular Hemoglobin Concent 34 g/dL (31-37) Red Cell Distribution Width 13.6 % (11.5-14.5) Platelet Count 159 x10^3/uL (140-400) Neutrophils (%) (Auto) 44 % (31-73) Lymphocytes (%) (Auto) 42 % (24-48) Monocytes (%) (Auto) 12 % (0-9) Eosinophils (%) (Auto) 2 % (0-3) Basophils (%) (Auto) 1 % (0-3) Neutrophils # (Auto) 1.1 x10^3/uL (1.8-7.7) Lymphocytes # (Auto) 1.1 x10^3/uL (1.0-4.8) Monocytes # (Auto) 0.3 x10^3/uL (0.0-1.1) Eosinophils # (Auto) 0.0 x10^3/uL (0.0-0.7) Basophils # (Auto) 0.0 x10^3/uL (0.0-0.2) Sodium Level 140 mmol/L (136-145) Potassium Level 3.9 mmol/L (3.5-5.1) Chloride Level 106 mmol/L (98-107) Carbon Dioxide Level 23 mmol/L (21-32) Anion Gap 11 (6-14) Blood Urea Nitrogen 6 mg/dL (7-20) Creatinine 0.8 mg/dL (0.6-1.0) Estimated GFR (Cockcroft-Gault) 71.5 BUN/Creatinine Ratio 8 (6-20) Glucose Level 93 mg/dL (70-99) Calcium Level 8.3 mg/dL (8.5-10.1) Total Bilirubin 0.4 mg/dL (0.2-1.0) Aspartate Amino Transf (AST/SGOT) 25 U/L (15-37) Alanine Aminotransferase (ALT/SGPT) 17 U/L (14-59) Alkaline Phosphatase 71 U/L (46-116) Total Protein 5.9 g/dL (6.4-8.2) Albumin 2.8 g/dL (3.4-5.0) Albumin/Globulin Ratio 0.9 (1.0-1.7) Assessment and Plan Assessmemt and Plan Problems Medical Problems: (1) COPD without exacerbation Status: Acute (2) Influenza A Status: Acute (3) Sepsis Status: Acute Comment Review of Relevant I have reviewed the following items johan (where applicable) has been applied. Labs Laboratory Tests Test 04/18/19 23:48 04/19/19 03:30 04/20/19 04:30 White Blood Count 3.8 x10^3/uL (4.0-11.0) 2.6 x10^3/uL (4.0-11.0) Red Blood Count 4.63 x10^6/uL (3.50-5.40) 4.49 x10^6/uL (3.50-5.40) Hemoglobin 14.8 g/dL (12.0-15.5) 14.4 g/dL (12.0-15.5) Hematocrit 43.8 % (36.0-47.0) 42.4 % (36.0-47.0) Mean Corpuscular Volume 95 fL (79-100) 95 fL (79-100) Mean Corpuscular Hemoglobin 32 pg (25-35) 32 pg (25-35) Mean Corpuscular Hemoglobin Concent 34 g/dL (31-37) 34 g/dL (31-37) Red Cell Distribution Width 13.4 % (11.5-14.5) 13.6 % (11.5-14.5) Platelet Count 190 x10^3/uL (140-400) 159 x10^3/uL (140-400) Neutrophils (%) (Auto) 63 % (31-73) 44 % (31-73) Lymphocytes (%) (Auto) 23 % (24-48) 42 % (24-48) Monocytes (%) (Auto) 13 % (0-9) 12 % (0-9) Eosinophils (%) (Auto) 1 % (0-3) 2 % (0-3) Basophils (%) (Auto) 0 % (0-3) 1 % (0-3) Neutrophils # (Auto) 2.4 x10^3/uL (1.8-7.7) 1.1 x10^3/uL (1.8-7.7) Lymphocytes # (Auto) 0.9 x10^3/uL (1.0-4.8) 1.1 x10^3/uL (1.0-4.8) Monocytes # (Auto) 0.5 x10^3/uL (0.0-1.1) 0.3 x10^3/uL (0.0-1.1) Eosinophils # (Auto) 0.0 x10^3/uL (0.0-0.7) 0.0 x10^3/uL (0.0-0.7) Basophils # (Auto) 0.0 x10^3/uL (0.0-0.2) 0.0 x10^3/uL (0.0-0.2) Sodium Level 137 mmol/L (136-145) 140 mmol/L (136-145) Potassium Level 4.0 mmol/L (3.5-5.1) 3.9 mmol/L (3.5-5.1) Chloride Level 101 mmol/L (98-107) 106 mmol/L (98-107) Carbon Dioxide Level 24 mmol/L (21-32) 23 mmol/L (21-32) Anion Gap 12 (6-14) 11 (6-14) Blood Urea Nitrogen 8 mg/dL (7-20) 6 mg/dL (7-20) Creatinine 1.0 mg/dL (0.6-1.0) 0.8 mg/dL (0.6-1.0) Estimated GFR (Cockcroft-Gault) 55.3 71.5 BUN/Creatinine Ratio 8 (6-20) 8 (6-20) Glucose Level 117 mg/dL (70-99) 93 mg/dL (70-99) Lactic Acid Level 2.7 mmol/L (0.4-2.0) 0.8 mmol/L (0.4-2.0) Calcium Level 8.3 mg/dL (8.5-10.1) 8.3 mg/dL (8.5-10.1) Total Bilirubin 0.5 mg/dL (0.2-1.0) 0.4 mg/dL (0.2-1.0) Aspartate Amino Transf (AST/SGOT) 32 U/L (15-37) 25 U/L (15-37) Alanine Aminotransferase (ALT/SGPT) 25 U/L (14-59) 17 U/L (14-59) Alkaline Phosphatase 81 U/L (46-116) 71 U/L (46-116) Total Protein 6.8 g/dL (6.4-8.2) 5.9 g/dL (6.4-8.2) Albumin 3.3 g/dL (3.4-5.0) 2.8 g/dL (3.4-5.0) Albumin/Globulin Ratio 0.9 (1.0-1.7) 0.9 (1.0-1.7) Influenza Type A Antigen Positive (NEGATIVE) Influenza Type B Antigen Negative (NEGATIVE) Procalcitonin < 0.10 ng/mL (0.00-0.10) Laboratory Tests Test 04/20/19 04:30 White Blood Count 2.6 x10^3/uL (4.0-11.0) Red Blood Count 4.49 x10^6/uL (3.50-5.40) Hemoglobin 14.4 g/dL (12.0-15.5) Hematocrit 42.4 % (36.0-47.0) Mean Corpuscular Volume 95 fL (79-100) Mean Corpuscular Hemoglobin 32 pg (25-35) Mean Corpuscular Hemoglobin Concent 34 g/dL (31-37) Red Cell Distribution Width 13.6 % (11.5-14.5) Platelet Count 159 x10^3/uL (140-400) Neutrophils (%) (Auto) 44 % (31-73) Lymphocytes (%) (Auto) 42 % (24-48) Monocytes (%) (Auto) 12 % (0-9) Eosinophils (%) (Auto) 2 % (0-3) Basophils (%) (Auto) 1 % (0-3) Neutrophils # (Auto) 1.1 x10^3/uL (1.8-7.7) Lymphocytes # (Auto) 1.1 x10^3/uL (1.0-4.8) Monocytes # (Auto) 0.3 x10^3/uL (0.0-1.1) Eosinophils # (Auto) 0.0 x10^3/uL (0.0-0.7) Basophils # (Auto) 0.0 x10^3/uL (0.0-0.2) Sodium Level 140 mmol/L (136-145) Potassium Level 3.9 mmol/L (3.5-5.1) Chloride Level 106 mmol/L (98-107) Carbon Dioxide Level 23 mmol/L (21-32) Anion Gap 11 (6-14) Blood Urea Nitrogen 6 mg/dL (7-20) Creatinine 0.8 mg/dL (0.6-1.0) Estimated GFR (Cockcroft-Gault) 71.5 BUN/Creatinine Ratio 8 (6-20) Glucose Level 93 mg/dL (70-99) Calcium Level 8.3 mg/dL (8.5-10.1) Total Bilirubin 0.4 mg/dL (0.2-1.0) Aspartate Amino Transf (AST/SGOT) 25 U/L (15-37) Alanine Aminotransferase (ALT/SGPT) 17 U/L (14-59) Alkaline Phosphatase 71 U/L (46-116) Total Protein 5.9 g/dL (6.4-8.2) Albumin 2.8 g/dL (3.4-5.0) Albumin/Globulin Ratio 0.9 (1.0-1.7) Microbiology 04/18/19 Blood Culture - Preliminary, Resulted NO GROWTH AFTER 1 DAY Medications Current Medications Sodium Chloride 1,000 ml @ 1,000 mls/hr 1X ONCE IV Last administered on 04/19/19at 00:26; Start 04/18/19 at 23:45; Stop 04/19/19 at 00:44; Status DC Metoclopramide HCl (Reglan Vial) 10 mg 1X ONCE IVP Last administered on 04/19/19at 00:27; Start 04/19/19 at 00:15; Stop 04/19/19 at 00:16; Status DC Ketorolac Tromethamine (Toradol 30mg Vial) 30 mg 1X ONCE IVP Last administered on 04/19/19at 00:27; Start 04/19/19 at 00:15; Stop 04/19/19 at 00:16; Status DC Diphenhydramine HCl (Benadryl) 25 mg 1X ONCE IVP Last administered on 04/19/19at 00:26; Start 04/19/19 at 00:15; Stop 04/19/19 at 00:16; Status DC Albuterol/ Ipratropium (Duoneb) 3 ml 1X ONCE NEB ; Start 04/19/19 at 01:15; Stop 04/19/19 at 01:16; Status DC Sodium Chloride 1,000 ml @ 1,560 mls/hr Q39M IV Last administered on 04/19/19at 01:20; Start 04/19/19 at 01:30; Stop 04/19/19 at 02:30; Status DC Oseltamivir Phosphate (Tamiflu) 75 mg 1X ONCE PO Last administered on 04/19/19at 01:25; Start 04/19/19 at 01:30; Stop 04/19/19 at 01:31; Status DC Ondansetron HCl (Zofran) 4 mg PRN Q8HRS PRN IV NAUSEA/VOMITING; Start 04/19/19 at 01:30; Stop 04/20/19 at 01:29; Status DC Sodium Chloride 1,000 ml @ 100 mls/hr Q10H IV Last administered on 04/20/19at 02:30; Start 04/19/19 at 01:30; Stop 04/20/19 at 01:29; Status DC Acetaminophen (Tylenol) 650 mg PRN Q4HRS PRN PO FEVER Last administered on 04/19/19at 10:04; Start 04/19/19 at 01:30; Stop 04/20/19 at 01:29; Status DC Albuterol/ Ipratropium (Duoneb) 3 ml RTQID NEB Last administered on 04/19/19at 15:43; Start 04/19/19 at 08:00; Stop 04/19/19 at 17:10; Status DC Oseltamivir Phosphate (Tamiflu) 30 mg BID PO Last administered on 04/20/19at 08:11; Start 04/19/19 at 21:00; Stop 04/24/19 at 20:59 Ceftriaxone Sodium (Rocephin) 1 gm Q24H IVP Last administered on 04/19/19at 14:54; Start 04/19/19 at 13:00 Azithromycin 500 mg/Sodium Chloride 250 ml @ 250 mls/hr Q24H IV Last administered on 04/19/19at 14:55; Start 04/19/19 at 13:00 Guaifenesin (Mucinex) 600 mg BID PO Last administered on 04/20/19at 08:11; Start 04/19/19 at 21:00 Enoxaparin Sodium (Lovenox 40mg Syringe) 40 mg Q24H SQ Last administered on 04/19/19at 14:54; Start 04/19/19 at 12:45 Lactobacillus Rhamnosus (Culturelle) 1 cap BID PO Last administered on 04/20/19at 08:11; Start 04/19/19 at 21:00 Albuterol/ Ipratropium (Duoneb) 3 ml RTQID NEB Last administered on 04/20/19at 07:24; Start 04/19/19 at 20:00 Albuterol Sulfate (Ventolin Neb Soln) 2.5 mg PRN Q4HRS PRN NEB SHORTNESS OF BREATH; Start 04/19/19 at 17:15 Acetaminophen (Tylenol) 650 mg PRN Q6HRS PRN PO fever Last administered on 04/20/19at 02:46; Start 04/20/19 at 02:45 Active Scripts Active Tylenol (Acetaminophen) 325 Mg Tablet 650 Mg PO PRN Q6HRS PRN 14 Days Vitals/I & O Vital Sign - Last 24 Hours 04/19/19 04/19/19 04/19/19 04/19/19 12:09 15:00 15:44 19:00 Temp 98.6 99.1 98.6 99.1 Pulse 72 88 Resp 18 18 B/P (MAP) 96/48 (64) 91/55 (67) Pulse Ox 98 99 99 92 O2 Delivery Nasal Cannula Nasal Cannula Nasal Cannula Nasal Cannula O2 Flow Rate 3.0 3.0 3.0 3.0 04/19/19 04/19/19 04/19/19 04/20/19 19:43 20:00 23:00 03:00 Temp 99.4 100.2 99.4 100.2 Pulse 98 81 Resp 18 18 B/P (MAP) 107/73 (84) 128/83 (98) Pulse Ox 99 90 94 O2 Delivery Nasal Cannula Nasal Cannula Nasal Cannula Nasal Cannula O2 Flow Rate 3.0 3.0 3.0 3.0 04/20/19 04/20/19 04/20/19 07:00 07:27 07:50 Temp 98.3 98.3 Pulse 74 Resp 18 B/P (MAP) 106/66 (79) Pulse Ox 96 89 O2 Delivery Nasal Cannula Nasal Cannula Nasal Cannula O2 Flow Rate 3.0 3.0 3.0 Intake and Output 04/19/19 04/19/19 04/20/19 15:00 23:00 07:00 Intake Total 100 ml 120 ml Balance 100 ml 120 ml BALDEMAR FERNANDEZ MD Apr 20, 2019 11:09
[2019-04-20] MEDS: ENOXAPARIN 40 MG/0.4 ML SYRINGE. SQ SCH (12:59)
[2019-04-20] MEDS: oxyCODONE/APAP 5/325 1 TAB TABLET PO PRN ×2 (13:02→20:44)
[2019-04-20] MEDS: AZITHROMYCIN 500 MG in IV NORMAL SALINE 250ML 250 ML IV SCH (13:03)
[2019-04-20] MEDS: cefTRIAXone IV Push 1 GM VIAL. IVP SCH (13:03)
[2019-04-20 15:00] VITALS: BP 102/64
[2019-04-20 19:05] VITALS: BP 117/73
[2019-04-20 23:05] VITALS: BP 123/74
[2019-04-21 03:05] VITALS: BP 128/82
[2019-04-21 07:00] VITALS: BP 126/73
[2019-04-21] MEDS: IPRATRPIUM/ALBUTEROL 0.5/2.5MG 3 ML NEBU. NEB SCH (07:37)
[2019-04-21] MEDS: oxyCODONE/APAP 5/325 1 TAB TABLET PO PRN (08:14)
[2019-04-21] MEDS: OSELTAMIVIR 30 MG CAPSULE PO SCH (08:14)
[2019-04-21] MEDS: LACTOBACILLUS RHAMNOSUS GG 1 CAPSULE. PO SCH (08:14)
[2019-04-21] MEDS ORDERED: GUAI600T47 PO (10:35)
[2019-04-21] MEDS ORDERED: OSEL30CA PO (10:35)
[2019-04-21] MEDS ORDERED: AMOX1TAB61 PO (10:35)
[2019-04-21] MEDS ORDERED: IPRA3AMP29 NEB (10:35)
[2019-04-21] MEDS ORDERED: PRED-220 PO (10:35)
--- NOTE | 2019-04-21 10:36 | SNU/HH DC ---
DISCHARGE WITH HOME HEALTH DISCHARGE INFORMATION: Discharge Date: Apr 21, 2019 Final Diagnosis: Problems Medical Problems: (1) COPD without exacerbation Status: Acute (2) Influenza A Status: Acute (3) Sepsis Status: Acute Condition on Discharge: Stable CODE STATUS: Code Status: Full HOME HEALTH: Face to Face: I certify this patient is under my care and that I, or a nurse practitioner or physician's general assistant working with me, had a face to face encounter that meets the physician face to face encounter requirements with this patient on []. Medical Complications: COPD, Other (flu) Senior Living For: Assess Cardiopulm Status RN For Eval/Treatment: Yes Physical Therapy For: Evalulation/Treatment Pt Meets Homebound Status: Extreme weakness w/ amb., Other: (COPD, bronchitis, flu, hypoxia) POST DISCHARGE ORDERS: Activity Instructions for Disc: No restrictions, Activity as tolerated Weight Bearing Status after Di: No restrictions, As tolerated DIET AFTER DISCHARGE: Cardiac Wound/Incision Care: No wound care needed CHECKS AFTER DISCHARGE: Checks after discharge: Check blood press - daily, Check your Temp as needed FOLLOW-UP: Follow up with: primary care < 2 weeks TREATMENT/EQUIPMENT ORDERS: Adaptive Equipment Issued: None Discharge Respiratory Equipmen: Oxygen CERTIFICATION STATEMENT: Certification Statement: Certification Statement: Based on the above finding, I certify that this patient is confined to the home and needs intermittent longterm care, physical therapy and/or speech therapy, or continues to need occupational therapy.~ This patient is under my care, and I have initiated the establishment of the plan of care.~ This patient will be followed by myself or a community physician who will periodically review the plan of care. Home Meds Active Scripts Prednisone (PREDNISONE ) 10 Mg Tablet, 10 MG PO UD for PREDNISONE TAPER, #18 TAB 0 Refills Take 3 tablets daily for 3 days, then take 2 tablets daily for 3 days, then take 1 tablet daily for 3 days, then stop. Prov:BALDEMAR FERNANDEZ MD 04/21/19 Acetaminophen (TYLENOL) 325 Mg Tablet, 650 MG PO PRN Q6HRS PRN for Headaches, Temp > 101.5F for 14 Days, #60 TAB Prov:JEZ ENCARNACION MD 03/27/18 BALDEMAR FERNANDEZ MD Apr 21, 2019 10:36
--- NOTE | 2019-04-21 11:09 | NUR ---
Discharge Note: ANN-MARIE HATCH [address] Discharge instructions and discharge home medications reviewed with Patient and a copy given. All questions have been answered and understanding verbalized. The following instructions and handouts were given: d/c instructions Discontinued lines and drains: Peripheral IV intact. Patient discharged to Home w/services with Family Member via Wheelchair
--- NOTE | 2019-04-21 11:23 | NUR ---
SW following. Discussed with RN, pt is from home with , up [facility] [place]. Pt being discharged today with home health. Per chart notes, pt has had [facility] before - RN advised pt wants the same agency she has now but she can't remember the name. SW advised pt can discharge and SW will figure out agency and send orders. Pt has oxygen at home through [employer]. SW contacted [facility] to determine if they are pt's home health provider, awaiting confirmation. [facility] will continue to follow.
== END 2019-04-21 12:23 | disposition home or self-care (01) | DRG 871 ==
LOC: ER 23:22 → 4 NORTH 04-19 01:15
PROVIDERS: ADMIT Internal Medicine; ATTEND Internal Medicine
DX: A41.9 Sepsis, unspecified organism (principal); J96.01 Acute respiratory failure with hypoxia; J10.00 Influenza due to other identified influenza virus with unspecified type of pneumonia; J44.0 Chronic obstructive pulmonary disease with (acute) lower respiratory infection; Z90.81 Acquired absence of spleen; F17.210 Nicotine dependence, cigarettes, uncomplicated; I10 Essential (primary) hypertension; Z88.8 Allergy status to other drugs, medicaments and biological substances
CPT/HCPCS: 36415; 71045; 80053; 83605; 84145; 85025; 87040; 87804; 93005; 94640; 94760; 99291; J0456; J0696; J1200; J1650; J1885; J2765; J7030; J7050; J7620; G0378

== ENCOUNTER 2019-08-13 20:41 | Emergency (ER) | payer MEDICARE, MEDICAID ==
[~2019-08-13] VITALS: Ht 160 cm; Wt 64.9 kg
[~2019-08-13 20:41] MED LIST changes: +AMOX1TAB61 PO; +GUAI600T47 PO; +OSEL30CA PO; +PRED-220 PO
[2019-08-13] MEDS ORDERED: KETOROLAC 30 MG/ML VIAL. IM ONE (21:30)
[2019-08-13] MEDS ORDERED: methylPREDNISolone SOD SUCC PF 125 MG/2 ML VIAL. IM ONE (21:30)
[2019-08-13] MEDS ORDERED: ORPHENADRINE CITRATE 60 MG/2 ML VIAL. IM ONE (21:30)
--- NOTE | 2019-08-13 22:59 | PHYS DOC ---
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 Patient states that the pain is been present for the last 3 d ays. Patient denies any obvious injury. Patient states that she has pain in her back that is radiating down to her right thigh. Patient states that currently she is being evaluated for numbness and tingling in her right upper extremity. Patient states that she has an appointment August 17. Patient denies headache, fever, chills, shortness of breath, nausea and vomiting. Review of Systems: Review of Systems: Constitutional: Denies fever or chills. [] Eyes: Denies change in visual acuity. [] HENT: Denies nasal congestion or sore throat. [] Respiratory: Denies cough or shortness of breath. [] Cardiovascular: Denies chest pain or edema. [] GI: Denies abdominal pain, nausea, vomiting, bloody stools or diarrhea. [] : Denies dysuria. [] Musculoskeletal: Complains of back pain radiating down to her right thigh [] Neurologic: Denies headache, focal weakness or sensory changes. [] Heart Score: Risk Factors: Risk Factors: DM, Current or recent (<one month) smoker, HTN, HLP, family history of CAD, obesity. Risk Scores: Score 0 - 3: 2.5% MACE over next 6 weeks - Discharge Home Score 4 - 6: 20.3% MACE over next 6 weeks - Admit for Clinical Observation Score 7 - 10: 72.7% MACE over next 6 weeks - Early Invasive Strategies Current Medications: Current Medications Medications (Trade) Dose Ordered Sig/[facility] Start Time Stop Time Status Last Admin Dose Admin Ketorolac Tromethamine (Toradol 30mg Vial) 30 mg 1X ONCE 08/13/19 21:30 08/13/19 21:31 DC 08/13/19 21:27 30 MG Methylprednisolone Sodium Succinate (SOLU-Medrol 125MG VIAL) 125 mg 1X ONCE 08/13/19 21:30 08/13/19 21:31 DC 08/13/19 21:26 125 MG Orphenadrine Citrate (Norflex) 60 mg 1X ONCE 08/13/19 21:30 08/13/19 21:31 DC 08/13/19 21:27 60 MG Allergies: Allergies: Allergies Coded Allergies Type Severity Reaction Last Updated Verified morphine Allergy Severe rash and throat swelling 01/25/16 Yes meperidine Allergy Intermediate rash 07/06/15 Yes Physical Exam: PE: Constitutional: Well developed, well nourished, no acute distress, non-toxic appearance. [] HENT: Normocephalic, atraumatic Eyes: EOMI Neck: Normal range of motion, Supple Respiratory: No respiratory distress Extremities: Back pain radiating down her right thigh. Neurovascularly intact. Pain on movement of her right lower extremity. Neurologic: Alert and oriented X 3 Current Patient Data: Vital Signs: Vital Signs Date Time Temp Pulse Resp B/P (MAP) Pulse Ox O2 Delivery O2 Flow Rate FiO2 08/13/19 20:54 98.2 89 20 161/79 (106) 99 Room Air 98.2 EKG: EKG: [] Radiology/Procedures: Radiology/Procedures: [] Course & Med Decision Making: Course & Med Decision Making Pertinent Imaging studies reviewed. (See chart for details) Ordered x-ray of the right hip and pelvis. Ordered Toradol IM, sign Medrol IM and Norflex IM. Currently patient states that her pain is completely gone. Awaiting x-ray results. Patient will be discharged home for outpatient follow-up if x-rays are negative. X-ray showed no acute fractures. Discussed results and plan of care with patient. Patient is instructed to follow up with PCP in one to 2 days. Appropriate discharge instructions given to patient to return to the ED or to seek immediate medical evaluation. Patient is instructed to return to the ED if symptoms worsen or if any concerns. Dragon Disclaimer: Dragon Disclaimer: This electronic medical record was generated, in whole or in part, using a voice recognition dictation system. Departure Departure Impression: Primary Impression: Hip pain Disposition: 01 HOME, SELF-CARE Condition: IMPROVED Referrals: ISABELLE LOREDO APRN (PCP) Patient Instructions: Hip Arthroscopy, Care After, Sciatica Additional Instructions: Please return to ED if symptoms worsen or if any concerns. Please follow-up with PCP in 1 to 2 days. Scripts Hydrocodone/Apap 5-325 (NORCO 5-325 TABLET) 1 Each Tablet 1 EACH PO PRN Q6HRS PRN for PAIN, #12 as needed for pain Prov: FAITH ALATORRE DO 08/13/19 Cyclobenzaprine Hcl (CYCLOBENZAPRINE HCL) 5 Mg Tablet 10 MG PO PRN TID PRN for PAIN, #12 TAB Prov: FAITH ALATORRE DO 08/13/19 Justicifation of Admission Dx: Justifications for Admission: Justification of Admission Dx: FAITH Coelho DO Aug 13, 2019 22:59
[2019-08-13] MEDS ORDERED: CYCL5TAB PO (23:49)
[2019-08-13] MEDS ORDERED: HYDR-3164 PO (23:49)
[2019-08-13 23:50] VITALS: BP 148/79
--- NOTE | 2019-08-14 00:09 | RAD ---
EXAM: AP pelvis, AP and lateral views left hip DATE: 08/13/2019 9:35 PM INDICATION: Reason: pain / Spl. Instructions: / History: COMPARISON: No Prior FINDINGS: Moderate colonic stool content is seen. Hip joint spaces are preserved. Mild decreased bone mineral density. Within these constraints no acute fracture or dislocation. Lower lumbar spine degenerative changes are seen. IMPRESSION: No acute fracture or dislocation. Electronically signed by: Giuseppe Andujar MD (08/14/2019 12:06 AM) [facility]
== END 2019-08-13 23:56 | disposition home or self-care (01) ==
LOC: ER 20:41
DX: M25.552 Pain in left hip (principal); H57.11 Ocular pain, right eye; R20.2 Paresthesia of skin; J44.9 Chronic obstructive pulmonary disease, unspecified; F17.200 Nicotine dependence, unspecified, uncomplicated; Z98.51 Tubal ligation status; Z98.890 Other specified postprocedural states; Z90.89 Acquired absence of other organs; Z88.6 Allergy status to analgesic agent; Z88.8 Allergy status to other drugs, medicaments and biological substances
CPT/HCPCS: 73502; 96372; 99284; J1885; J2360; J2930

== ENCOUNTER → 2019-08-28 | Outpatient (CLI) | payer MEDICARE, MEDICAID ==
[2019-08-13 23:50] VITALS: BP 148/79
[~2019-08-28] MED LIST changes: +ALBU2.5V8 IH; +CYCL5TAB PO; +DOCU-109 PO; +HYDR-3164 PO; +ONDA8TAB9 PO
== END | disposition home or self-care (01) ==
LOC: LAB 09:17
PROVIDERS: ATTEND Orthopaedic Surgery Sports Medicine
DX: Z11.59 Encounter for screening for other viral diseases (principal)
CPT/HCPCS: 36415; U0003

== ENCOUNTER 2019-09-02 06:13 | Day surgery (SDC) | payer MEDICARE, MEDICAID ==
[~2019-09-02] VITALS: Ht 163.8 cm; Wt 62.6 kg
[~2019-09-02 06:13] MED LIST changes: -DOCU-109 PO; -ONDA8TAB9 PO
--- NOTE | 2019-09-02 06:42 | DISCH ---
DISCHARGE INSTRUCTIONS Condition on Discharge Condition on Discharge: Stable Activity After Discharge Activity Instructions for Disc: No restrictions, Other ROM activity Bathing Instructions: Shower-keep dressing dry Lifting Instructions after Dis: No heavy lifting Exercise Instruction after Dis: Progress as tolerated Driving Instructions after Dis: Do not drive today Weight Bearing Status after Di: No restrictions, As tolerated Diet after Discharge Diet after Discharge: Regular Liquid Texture: Thin Liquid Wound Incision Care Wound/Incision Care: Ice to area for comfort, Keep wound elevated, Change dressing Other wound/incision instructi: ok to change dressing in 2 days Checks after Discharge Checks after discharge: Check blood press - daily, Check your Temp as needed Contacting the DRRisa after DC Call your doctor for: Concerns you may have Follow-Up Follow up with: Chavo in 2wks Treatment/Equipment after DC Adaptive Equipment Issued: None Discharge Respiratory Equipmen: Oxygen JEANETTE LEUNG II, MD Sep 02, 2019 06:42
[2019-09-02] MEDS ORDERED: LIDOCAINE 1% Multi-Dose 20 ML VIAL. ONE (06:55)
[2019-09-02] MEDS ORDERED: BUPIVACAINE MPF 0.5% 30 ML VIAL. ONE (06:56)
[2019-09-02] MEDS ORDERED: fentaNYL PF VIAL 100 MCG/2 ML VIAL ONE (06:59)
[2019-09-02] MEDS ORDERED: MIDAZOLAM HCL/PF 2 MG/2 ML VIAL. ONE (06:59)
[2019-09-02] MEDS ORDERED: ceFAZolin SODIUM IV Push 1 GM VIAL. IVP ONE (07:00)
[2019-09-02] MEDS ORDERED: HYDROmorphone 2 MG/ML VIAL IV PRN (07:00)
[2019-09-02] MEDS ORDERED: fentaNYL PF VIAL 100 MCG/2 ML VIAL IV PRN ×2 (07:00)
[2019-09-02] MEDS ORDERED: LIDOCAINE 2% PF 5 ML VIAL. ONE (07:00)
[2019-09-02] MEDS ORDERED: LIDOCAINE 1% PF 2 ML VIAL. ID PRN (07:00)
[2019-09-02] MEDS ORDERED: PROPOFOL 10 MG/ML (20ML) VIAL. IV ONE (07:00)
[2019-09-02] MEDS ORDERED: IV RINGERS,LACTATED 1000ML 1,000 ML IV SCH (07:00)
[2019-09-02] MEDS ORDERED: ONDANSETRON PF 4 MG/2 ML VIAL. IV PRN (07:00)
[2019-09-02] MEDS ORDERED: PROCHLORPERAZINE 10 MG/2 ML VIAL. IV PRN (07:00)
[2019-09-02] MEDS ORDERED: DEXAMETHASONE SOD PHOS 4 MG/ML VIAL ONE (07:00)
[2019-09-02] MEDS ORDERED: ONDANSETRON PF 4 MG/2 ML VIAL. ONE (07:00)
[2019-09-02] MEDS ORDERED: ceFAZolin SODIUM IV Push 1 GM VIAL. IVP PRN (08:00)
[2019-09-02] MEDS ORDERED: SEVOFLURANE 31 TO 60 MINUTES. IH ONE (08:13)
[2019-09-02] MEDS ORDERED: ONDA8TAB9 PO (08:54)
[2019-09-02] MEDS ORDERED: HYDR-3164 PO (08:57)
[2019-09-02] MEDS ORDERED: DOCU-109 PO (08:57)
--- NOTE | 2019-09-02 08:58 | PDOC4 ---
Operative Note Operative Note Date of procedure: 09/02/2019 Surgeon: Wilbert Leung Franchise Field Consultant: Nigel Martinez, certified hyperbaric technologist Preoperative diagnosis: Right carpal tunnel Right cubital tunnel Postop diagnosis: Same Procedures performed: #1 open right carpal tunnel release 2. 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 Because of interference with her activities of daily living and failure of conservative therapies, I had a discussion of the risks, benefits, and alternatives to the above procedure and she elected to proceed. Description of procedure: Patient was greeted in the preoperative area by myself or the correct extremity was verified and marked. She was taken to the operative suite and antibiotics were started as she was brought back. Once in the operating room, she was transferred gently supine to the operating room table and secured to the bed with all pressure points padded and had successful induction of a general anesthetic. Nonsterile tourniquet was applied to her right upper extremity. Chlorhexidine pre-scrub was accomplished. Right upper extremity was then prepped and draped in the usual sterile fashion we conducted our standard preoperative timeout. Extremity was exsanguinated with an Esmarch and tourniquet insufflated to 250 mmHg. after this, I made a longitudinal incision centered over her transverse carpal ligament, incised skin with a scalpel, I next dissected and spread subcutaneous tissue with a hemostat, used bipolar cautery for hemostasis. Identified the palmar fascia and incised this in line with the skin incision. Identified the transverse carpal ligament and releases sharply with a scalpel. I then placed a Ragnell retractor at the distal aspect of the incision, spread above and below small remaining portion of the transverse carpal ligament and releases with tenotomy's. I repeated this maneuver in an ulnar directed fashion at the proximal aspect of the incision to release the distal antebrachial fascia. After this, this wound was irrigated out and closed with simple 3-0 nylon. A soft bulky dressing was then applied. We then directed our attention to the elbow, I palpated for the medial epicondyle in September and just posterior to this. I incised skin with a scalpel and dissected subcutaneous tissue with tenotomy's, using bipolar cautery for hemostasis. I incised the fascia line with the skin incision. I continued my dissection and identified the ulnar nerve and released it, the roof of the cubital tunnel from the triceps down to the flexor muscle mass. I then palpated along the tip to make sure accomplish complete release and I was confident I had. Tourniquet was let down, there was one small bleeder at the subcutaneous tissue distally otherwise the operative field was fairly dry. We then closed subcutaneous tissue with inverted interrupted 2-0 Vicryl followed by running 3-0 Monocryl in a buried subcuticular fashion for skin. Local anesthetic was infiltrated in the subcutaneous tissues of the incisions. The soft bulky dressing was then applied to her elbow as well. All counts correct x2 prior to wound closure. No complications. Surgery was tolerated well by the patient. At the conclusion, she was awake from anesthesia transferred on the spine to the recovery room cart and taken to PACU in stable and extubated condition. Postoperative plan is to discharge her home. Wound care and activity instructions discussed with her as well as given in written form. She will follow-up in 2 weeks, sooner should a problem arise WILBERT LEUNG II, MD Sep 02, 2019 08:58
[2019-09-02 09:30] VITALS: BP 119/83
[2019-09-02] MEDS ORDERED: HYDROcodone/APAP 5/325MG 1 TAB TABLET PO PRN (09:30)
== END 2019-09-02 10:06 | disposition home or self-care (01) ==
LOC: SURG 06:13
PROVIDERS: ATTEND Orthopaedic Surgery Sports Medicine
DX: G56.01 Carpal tunnel syndrome, right upper limb (principal); G56.21 Lesion of ulnar nerve, right upper limb
CPT/HCPCS: 64718; 64721; A7015; J0690; J1100; J2250; J2405; J2704; J3010; J3490; J7120

== ENCOUNTER → 2020-08-22 | Outpatient (CLI) | payer MEDICARE, MEDICAID ==
[~2020-08-22] MED LIST changes: +DOCU-109 PO; -NABU750T PO; +NABU750T11 PO; +ONDA8TAB9 PO
--- NOTE | 2020-08-22 17:11 | RAD ---
XR LUMBAR SPINE 4+V History: Reason: LUMBAR PAIN WITH RADIATION DOWN RIGHT LEG. / Spl. Instructions: / History: Technique: 5 views lumbar spine Comparison: None. Findings: Normal vertebral body height. Mild retrolisthesis L2 on L3. Advanced multilevel degenerative disc frandy nges. Advanced lower lumbar facet arthropathy. Impression: 1. Advanced multilevel lumbar spondylosis. Electronically signed by: Keron Hawkins DO (08/22/2020 5:08 PM) [id number]
== END ==
LOC: RAD 13:01
PROVIDERS: ATTEND Nurse Practitioner Family
DX: M47.816 Spondylosis without myelopathy or radiculopathy, lumbar region (principal); M43.16 Spondylolisthesis, lumbar region
CPT/HCPCS: 72100; 72110

== ENCOUNTER → 2020-08-29 | Outpatient (CLI) | payer MEDICARE, MEDICAID ==
--- NOTE | 2020-08-29 15:00 | KCIC ---
Bilateral digital screening mammograms: Reason for examination: Routine screening. No previous exams available for comparison. Interpretation was made with the benefit of CAD. The skin and nipples show no abnormalities. No abnormal axillary lymph nodes are seen. The breast par enchyma shows scattered fibroglandular density. (Breast density: Category B.) There are no dominant m asses, suspicious calcifications or architectural distortions. Vascular calcification is present. Impression: No evidence of malignancy. Recommend routine screening. BI-RADS Category 1: Negative. "Our facility is accredited by the [employer] Mammography Program." This patient's information has been entered into a reminder system for the patient to be notified wit h the results of her examination and a target date for the next mammogram. Electronically signed by: Cathy Dao MD (08/29/2020 2:57 PM) [id number]
--- NOTE | 2020-08-29 15:13 | KCIC ---
EXAMINATION: Magnetic resonance imaging (MRI) of the lumbar spine without contrast 08/29/2020 1:52 PM HISTORY: Lumbar pain with radiation down the leg TECHNIQUE: Multiplanar multi-weighted MRI of the lumbar spine was performed without intravenous contr ast using the standard lumbar spine protocol. Contrast information: None administered. COMPARISON: None available. FINDINGS: There is minimal retrolisthesis of T12 on L1. There is moderate disc height loss at T10-T11 with Vandana c type II endplate degenerative changes. Modic type I endplate degenerative changes identified at T12 -L1 with moderate disc height loss. There is mild to moderate disc height loss at L1-L2 and L2-L3 wit h Modic type I endplate degenerative changes. Modic type II endplate degenerative changes with modera te to advanced disc height loss at L3-L4 and L4-L5. Moderate disc height loss at L5-S1 with mixed Mod ic type I and Modic type II endplate degenerative changes. Conus medullaris terminates at L2. Distal spinal cord signal intensity is normal in all sequences. Disc bulges are identified at T9-T10, T10-T1 1, T11-T12 and T12-L1 with up to mild spinal canal stenosis. No acute fracture is identified. No prev ertebral edema. No paraspinal soft tissue abnormality. Kidneys are normal in appearance. Abdominal ao rta is normal in caliber. No suspicious retroperitoneal abnormality. Versus portions of the sacrum ap pear intact. T10-T11: There is a circumferential disc bulge. Mild facet arthropathy. Moderate bilateral neuroforam inal stenosis. Mild spinal canal stenosis without deformity of the conus. T11-T12: There is a circumferential disc bulge. Moderate facet arthropathy. Mild bilateral neuroforam inal stenosis, left greater than right. Mild spinal canal stenosis, exacerbated by ligamentum flavum infolding. No compression of the conus. T12-L1: There is a mild disc bulge. Mild facet arthropathy. Moderate bilateral neuroforaminal stenosi s. Mild spinal canal stenosis. L1-L2: There is a circumferential disc bulge with left central disc extrusion. Mild facet arthropathy with ligamentum flavum infolding. Moderate bilateral neuroforaminal stenosis. Mild spinal canal sten osis without deformity of the conus. L2-L3: Moderate circumferential disc bulge asymmetric to the left. There is moderate left and moderat e facet arthropathy. There is severe left and moderate right neural foraminal stenosis. Moderate spin al canal stenosis, exacerbated by epidural lipomatosis. L3-L4: There is a moderate circumferential disc bulge. Mild facet arthropathy. Moderate left and mild right neuroforaminal stenosis. Moderate spinal canal stenosis. L4-L5: There is a circumferential disc bulge. Moderate facet arthropathy. Ligamentum flavum infolding . Moderate to severe right and moderate left neuroforaminal stenosis. Mild spinal canal stenosis with narrowing the right subarticular zone. L5-S1: There is a circumferential disc bulge. There is central disc extrusion. Severe facet arthropat hy ligamentum flavum infolding. Severe bilateral neuroforaminal stenosis. Mild to moderate spinal can al stenosis. There is narrowing of the lateral recess bilaterally, left greater than right. IMPRESSION: Moderate degenerative changes of the thoracolumbar spine as described in detail above. Electronically signed by: Debra Melendez MD (08/29/2020 3:11 PM) [id number]
== END ==
LOC: KCIC MRI 13:24
PROVIDERS: ATTEND Nurse Practitioner Family
DX: Z12.31 Encounter for screening mammogram for malignant neoplasm of breast (principal); M51.27 Other intervertebral disc displacement, lumbosacral region; M47.817 Spondylosis without myelopathy or radiculopathy, lumbosacral region; M47.815 Spondylosis without myelopathy or radiculopathy, thoracolumbar region; M48.07 Spinal stenosis, lumbosacral region
CPT/HCPCS: 72148; 77067

== ENCOUNTER → 2020-09-19 | Outpatient (CLI) | payer MEDICARE, MEDICAID ==
[~2020-09-19] MED LIST changes: +TRAM50TA PO
--- NOTE | 2020-09-19 12:40 | PDOC1 ---
INITIAL PAIN CONSULT DATE OF SERVICE: DOS: DATE: 09/19/20 TIME: 12:33 CHIEF COMPLAINT: Chief Complaint: Low back and right lower extremity pain HISTORY OF PRESENT ILLNESS: 70-year-old female presents history of pain low back right lower extremity for about 2 years not the result of any specific injury or accident that she is aware of is getting worse over time gradually increasing patient reports it is in the low back right lower extremity posterior gluteus lateral thigh anterior thigh medial thigh medial lower leg and the calf on the right as well patient reports a change during the day worse with walking standing changing positions becomes very difficult with change in position especially at night when she is trying to sleep and awakens her about once every hour patient reports that can affect her bowel bladder control with some increased frequency but no incontinence patient reports it does affect her ability to walk as well has been stumbling and falling with the right leg patient describes the pain as sharp and constant in the back stabbing and throbbing and shooting in the right leg radiating the right leg as described primarily at night at the end of the day as a burning and cramping sensation in the leg and the back itself. Patient had physical therapy for almost 2 months without significant benefit. Patient did have an MRI scan lumbar spine showing multilevel degenerative changes from [id number] with multiple moderate circumferential disc bulges L3-4 L4-5 so circumferential disc bulge with moderate to severe right and moderate left neuroforaminal stenosis mild spinal canal stenosis with narrowing of the right subarticular zone L5-S1 showing sequential disc bulge with central disc extrusion severe facet arthropathy severe bilateral neuroforaminal stenosis mild to moderate spinal canal stenosis narrowing the lateral recesses bilaterally. Patient rates disability rating 0-10 10 being the worst as a 10 with family home responsibilities and recreational activities and sexual behavior 8 with social activity occupation 7 with self-care and 10 life support activities especially sleeping. Reports no loss of motor function but significant fatigability and weakness in the right leg with ambulation and even standing. PAST MEDICAL HISTORY: PMH: Emphysema, dizziness, bladder prolapse PREVIOUS SURGERIES: Past Surgical Hx: Tubal CURRENT MEDICATIONS: Current Meds: Active Scripts Medications Dose Route/Sig Max Daily Dose Days Date Category Tramadol Hcl 50 Mg Tablet 50 Mg PO DAILY PRN 09/19/20 Reported Proair Hfa (Albuterol Sulfate) 8.5 Gm Hfa.aer.ad 2 Puff IH PRN Q4-6HRS PRN 21 09/01/19 Reported Pulmicort Flexhaler (Budesonide) 180 Mcg Aer.pow.ba 2 Puff IH DAILY08 09/01/19 Reported ALLERGIES; Allergies: Coded Allergies: morphine (Verified Allergy, Severe, rash and throat swelling, 09/02/19) tolerates hydrocodone meperidine (Verified Allergy, Intermediate, rash, 09/02/19) FAMILY HISTORY: Family Hx: Cancer patient's mother, cancer patient's sister SOCIAL HISTORY: Social Hx: Patient continues to smoke about a third a pack of cigarettes a day and has for many years does not drink alcohol has history of cocaine abuse but not currently and not for many years patient reports she is and lives locally in [facility]. REVIEW OF SYSTEMS: ROS: Positive for those items mentioned in history of present illness, all systems are reviewed, positive for urinary incontinence, abnormal Pap smear, otherwise negative ,and are complete full and well-documented on patient's chart. PHYSICAL EXAM: VS: Blood pressure is 146/92 pulse 98 respirations 18 temperature 98.3 F height is 5 feet 3 inches weight is 144 pounds PE: PHYSICAL EXAMINATION: GENERAL: The patient is awake, alert, oriented, appropriate, very pleasant demeanor. HEENT: Shows normocephalic, atraumatic. Extraocular movements are intact and symmetrical. Oral cavity: Mucous membranes moist and pink. Dentition is intact. NECK: Shows anterior throat supple without palpable lymphadenopathy noted. Swallow reflex symmetrical. CHEST: Shows normal on inspection. Breath sounds are clear bilaterally, distant but no rales rhonchi or wheezes auscultated. HEART: Shows S1, S2 clear. No murmurs auscultated. ABDOMEN: Soft, nontender, nondistended, obese. No palpable organomegaly is noted. No rebound or guarding demonstrated. BACK: Shows spine grossly in the midline. Normal-appearing cervical lordotic curvature. There is mildly increased thoracic kyphosis, some flattening of the lumbar lordotic curvature. Lumbar paraspinous muscles show symmetrical on inspection, on palpation shows some moderate tenderness diffusely throughout the upper, middle and lower distribution of the paraspinous muscles bilaterally and also into the lower thoracic paraspinous musculature, firm and tender, but without specific trigger points, without radiation of pain. The patient has good rotational motion of the lumbar spine, both laterally as well as extension and flexion without significant difficulty. No tenderness over the spinous processes, sacrum or sacroiliac regions. EXTREMITIES: Lower extremities show deep tendon reflexes 1+ in the patellar and tendo calcaneus tendons. Motor exam is 4 on a scale of 5 with right dorsiflexion, extension, quadriceps and hamstring flexion and 5/5 on the left. Peripheral pulses are 1+ posterior tibial. No peripheral edema is noted bilaterally. Lower extremities are warm and dry to touch, equal in color and appearance. Straight leg raise noted to be positive on the right about 35 degrees, left side is negative. Gaenslen's and Wade's maneuvers are negative bilaterally as well. The patient is able to stand, has difficulty trying to stand on her right leg with all of her weight as she loses balance quickly, walks with a favoring gait does appear to favor the right lower extremity not use any assistive devices on her visit today. SKIN: Shows warm and dry, good turgor. No edema. No sores, rashes or bruising throughout. IMPRESSION: Impression: 70-year-old female with 2-year history low back right lower extremity pain in a radicular fashion. MRI scan lumbar spine as noted Emphysema Cigarette smoking Plan: Options were discussed with the patient including conservative medical management is continued physical therapies and interventional techniques. Patient has done physical therapy for almost 2 months without significant increase in benefit, would like to pursue interventional techniques. We discussed a lumbar epidural steroid injection using description as well as anato mical models described procedure. Patient will wait for preauthorization with her insurance provider and with obtained we will plan on translaminar approach L4-5 lumbar epidural steroid injection at that time. In the meantime, she will continue with stretching and strength exercises and walking as tolerated daily. RODRIGUEZ JORGENSEN MD Sep 19, 2020 12:40
== END | disposition home or self-care (01) ==
LOC: PNCL 12:31
PROVIDERS: ATTEND Anesthesiology
DX: M54.5 Low back pain (principal); M79.604 Pain in right leg; J43.9 Emphysema, unspecified; M19.90 Unspecified osteoarthritis, unspecified site; F17.210 Nicotine dependence, cigarettes, uncomplicated; Z87.440 Personal history of urinary (tract) infections; Z98.51 Tubal ligation status; Z98.890 Other specified postprocedural states; Z79.899 Other long term (current) drug therapy; Z88.6 Allergy status to analgesic agent; Z88.8 Allergy status to other drugs, medicaments and biological substances
CPT/HCPCS: G0463

== ENCOUNTER → 2020-10-03 | Outpatient (CLI) | payer MEDICARE, MEDICAID ==
[~2020-10-03] MED LIST changes: +IOHEXOL 180 MG/ML 10 ML VIAL. ONE; +methylPREDNISolone ACETATE 40 MG/ML VIAL. ONE; +methylPREDNISolone ACETATE 80 MG/ML VIAL. ONE
--- NOTE | 2020-10-03 09:41 | PDOC ---
Progress Note - Pain Clinic Date of Service: DOS: DATE: 10/03/20 TIME: 09:38 Diagnosis: Dx: Lumbar radiculopathy with lumbar degenerative disc disease and lumbar spinal stenosis History or Present Illness: HPI: 70-year-old female returns for follow-up status post initial evaluation and preauthorization for lumbar epidural steroid injection. Patient reports still significant pain low back right lower extremity posterior gluteus posterior thigh lateral thigh anterior thigh medial thigh medial lower leg to the ankle and the top of the foot on the right side patient reports is aching sharp shooting burning cramping stabbing at times constant severe unbearable with walking and standing patient reports is better with sitting or lying down but does awaken her sleep about every hour at night. Patient reports no new motor or sensory deficits no bowel or bladder incontinence reports her pain is a 10 on scale 10 is worst average and least over the past week is a 10 today. Patient reports new medication of X strength Tylenol which she describes as he was last here as the Medrol Dosepak we called in for her was not received by the pharmacy. Patient reports that Tylenol does help but only minimally. Physical Exam: VS: Blood pressure is 152/92 pulse 91 respirations 18 temperature is 98.2 F height is 5 feet 3 inches weight is 142 pounds PE: PHYSICAL EXAMINATION: GENERAL: The patient is awake, alert, oriented, appropriate, very pleasant in demeanor HEENT: Shows normocephalic, atraumatic. Extraocular movements are intact and symmetrical. NECK: Shows anterior throat supple without palpable lymphadenopathy noted. CHEST: Shows normal on inspection. Breath sounds are clear bilaterally. HEART: Shows S1, S2 clear. No murmurs auscultated. ABDOMEN: Soft, nontender, nondistended, obese. BACK: Shows spine grossly in the midline. Normal-appearing cervical lordotic curvature. There is slightly increased thoracic kyphosis, some minor flattening of the lumbar lordotic curvature. Lumbar paraspinous muscles show symmetrical on inspection, on palpation shows some moderate tenderness diffusely throughout the upper, middle and lower distribution of the paraspinous muscles without specific trigger points, without radiation of pain. The patient has good rotational motion of the lumbar spine, both laterally as well as extension and flexion without significant difficulty. EXTREMITIES: Lower extremities show deep tendon reflexes 1+ in the patellar and tendo calcaneus tendons. Motor exam is 4 on a scale of 5 with right dorsiflexion, extension, quadriceps and hamstring flexion and 5/5 on the left. Peripheral pulses are 1+ posterior tibial. No peripheral edema is noted bilaterally. Lower extremities are warm and dry to touch, equal in color and appearance. SKIN: Shows warm and dry, good turgor. No edema. No sores, rashes or bruising throughout. Procedure: Procedure: Options were discussed with the patient. Patient's old chart was reviewed as her current medication regimen updated current review of systems updated today as well. We will proceed with a lumbar epidural steroid injection today with fluoroscopic guidance. Risks were discussed including but not limited to: Bleeding, infection, possibility of epidural hematoma and subsequent neurological compromise, dural puncture, headaches, spinal cord and/or nerve damage, side effects of steroid medication, and poor results regarding pain control. Patient understands and wished to proceed. Patient will return to the clinic in approximate 2 weeks for follow-up, was counseled as return appointment activity level and side effects to be aware of. Medication Injected: Med Injected: Procedure is lumbar epidural steroid injection under local anesthetic using sterile prep and drape at the L4-5 level using C-arm fluoroscopic guidance in both AP and lateral views medications injected is 120 mg Depo-Medrol +10mL preservative-free normal saline and 2 mL contrast- condition at discharge is stable patient tolerated procedure well had no complications. Condition at Discharge: Condition at Discharge: Condition at discharge stable, patient alert the procedure well and had no complications. RODRIGUEZ JORGENSEN MD Oct 03, 2020 09:41
--- NOTE | 2020-10-03 09:42 | PDOC4 ---
Procedure Note: ICD 10 Code: ICD 10 Code: M 54.16 M 48.07 M 51.36 Procedure Note: Patient was consented for lumbar epidural steroid injection. Risks were discussed including but not limited to: Bleeding, infection, possibility of epidural hematoma and subsequent neurological compromise, dural puncture, headaches, spinal cord and/or nerve damage, side effects of steroid medication, and poor results regarding pain control. Patient understands and wished to proceed. Procedure is lumbar epidural steroid injection under local anesthetic using sterile prep and drape at the L4-5 level using C-arm fluoroscopic guidance in both AP and lateral views medications injected is 120 mg Depo-Medrol +10mL pre servative-free normal saline and 2 mL contrast- condition at discharge is stable patient tolerated procedure well had no complications. RODRIGUEZ JORGENSEN MD Oct 03, 2020 09:42
== END | disposition home or self-care (01) ==
LOC: PNCL 09:13
PROVIDERS: ATTEND Anesthesiology
DX: M51.16 Intervertebral disc disorders with radiculopathy, lumbar region (principal); M48.061 Spinal stenosis, lumbar region without neurogenic claudication; J43.9 Emphysema, unspecified; M19.90 Unspecified osteoarthritis, unspecified site; F17.210 Nicotine dependence, cigarettes, uncomplicated; Z98.51 Tubal ligation status; Z98.890 Other specified postprocedural states; Z79.899 Other long term (current) drug therapy; Z88.6 Allergy status to analgesic agent; Z88.8 Allergy status to other drugs, medicaments and biological substances
CPT/HCPCS: 62323; J1030; J1040; Q9965

== ENCOUNTER → 2020-10-20 | Outpatient (CLI) | payer MEDICARE, MEDICAID ==
[~2020-10-20] MED LIST changes: -IOHEXOL 180 MG/ML 10 ML VIAL. ONE; -methylPREDNISolone ACETATE 40 MG/ML VIAL. ONE; -methylPREDNISolone ACETATE 80 MG/ML VIAL. ONE
--- NOTE | 2020-10-20 09:37 | PDOC ---
Progress Note - Pain Clinic Date of Service: DOS: DATE: 10/20/20 TIME: 09:33 Diagnosis: Dx: Lumbar radiculopathy with lumbar degenerative disease and lumbar spinal stenosis History or Present Illness: HPI: 70-year-old female returns for follow-up status post lumbar epidural steroid injection x1. Patient reports 80% improvement for the first 2 weeks after the injection the pain began to return but is not near baseline patient reports the leg is doing much better main pain now she feels in the posterior gluteus and posterior thigh posterior to the hip region patient reports she has been increase her activities greater ease and comfort walking greater distances doing household work with greater ease and comfort and try with greater ease also sleeping better at night patient reports is beginning to bother her from sleep again just over the past few days patient rates her pain as a 9 on scale 10 is worst least and average over the past week is a 9 today patient wanted sharp and tight can be constant but again not radiating as far in the leg and she is quite pleased with her progress thus far. Patient reports no new bowel or bladder incontinence no motor deficits. Patient reports he does have bladder surgery scheduled in the next 2 weeks with her [facility]. Physical Exam: VS: Blood pressure is 131/87 pulse 50 respirations 18 temperature is 98.1 F height is 5 feet 3 inches weight is 142 pounds PE: PHYSICAL EXAMINATION: GENERAL: The patient is awake, alert, oriented, appropriate, very pleasant in demeanor HEENT: Shows normocephalic, atraumatic. Extraocular movements are intact and symmetrical. Oral cavity: Mucous membranes moist and pink. Dentition is intact. NECK: Shows anterior throat supple without palpable lymphadenopathy noted. Swallow reflex symmetrical. CHEST: Shows normal on inspection. Breath sounds are clear bilaterally, distant and coarse but no rales rhonchi or wheezes auscultated. HEART: Shows S1, S2 clear. No murmurs auscultated. ABDOMEN: Soft, nontender, nondistended, obese. No palpable organomegaly is noted. BACK: Shows spine grossly in the midline. Normal-appearing cervical lordotic curvature. There is slightly increased thoracic kyphosis, some minor flattening of the lumbar lordotic curvature. Lumbar paraspinous muscles show symmetrical on inspection, on palpation shows some moderate tenderness diffusely throughout the upper, middle and lower distribution of the paraspinous muscles without specific trigger points, without radiation of pain. The patient has good rotational motion of the lumbar spine, both laterally as well as extension and flexion without significant difficulty. EXTREMITIES: Lower extremities show deep tendon reflexes 1+ in the patellar and tendo calcaneus tendons. Motor exam is 4 on a scale of 5 with right dorsiflexion, extension, quadriceps and hamstring flexion and 5/5 on the left. Peripheral pulses are 1 posterior tibial. No peripheral edema is noted bilaterally. Lower extremities are warm and dry to touch, equal in color and ap pearance. Straight leg raise is again positive on the right side about 45 degrees with decreased with knee flexion, left side is negative. SKIN: Shows warm and dry, good turgor. No edema. No sores, rashes or bruising throughout. Procedure: Procedure: Options were discussed with the patient. Patient's chart was reviewed as her current medication regimen updated current review of systems updated today as well. We will preauthorize patient for a second lumbar epidural steroid injections doing very well with the first 1 still with radicular pain having an L4-5 dermatomal distribution in the right lower extremity. Patient continue with stretching and strength exercises as previously as well as oral analgesics as previously. Once approved, patient return to clinic for translaminar approach L4-5 level lumbar epidural steroid injection with fluoroscopic guidance. Medication Injected: Med Injected: None Condition at Discharge: Condition at Discharge: Condition at discharge is stable. RODRIGUEZ JORGENSEN MD Oct 20, 2020 09:37
== END ==
LOC: PNCL 09:07
PROVIDERS: ATTEND Anesthesiology
DX: M51.16 Intervertebral disc disorders with radiculopathy, lumbar region (principal); M48.061 Spinal stenosis, lumbar region without neurogenic claudication; J44.9 Chronic obstructive pulmonary disease, unspecified; M19.90 Unspecified osteoarthritis, unspecified site; Z87.01 Personal history of pneumonia (recurrent); Z87.440 Personal history of urinary (tract) infections; Z86.010 Personal history of colon polyps; Z98.51 Tubal ligation status; Z98.890 Other specified postprocedural states
CPT/HCPCS: 99212; G0463

== ENCOUNTER → 2020-10-28 | Outpatient (CLI) | payer MEDICARE, MEDICAID ==
[~2020-10-28] MED LIST changes: +SULF1TAB24 PO
[2020-10-28 13:27] LABS: BASO % 1 % (0-3); EOS # 0.1 x10^3/uL (0.0-0.7); EOS % 3 % (0-3); HEMOGLOBIN 15.1 g/dL (12.0-15.5); LYMPH # 1.5 x10^3/uL (1.0-4.8); LYMPH % 37 % (24-48); MEAN CORPUSCULAR HEMOGLOBIN 33 pg (25-35); MEAN CORPUSCULAR HGB CONC 35 g/dL (31-37); MEAN CORPUSCULAR VOLUME 94 fL (79-100); MONO # 0.4 x10^3/uL (0.0-1.1); MONO % 9 % (0-9); NEUT % 49 % (31-73); PLATELET COUNT 207 x10^3/uL (140-400); RED CELL DISTRIBUTION WIDTH 13.2 % (11.5-14.5)
--- NOTE | 2020-10-28 15:09 | RAD ---
AP and Lateral Views of the Chest 10/28/2020 1:47 PM Indication: PRE-OP EVAL FOR CERVIX SX / Comparison: chest radiograph April 19, 2019 Findings: Heart size is normal. No pneumothorax or effusion is identified. No focal infiltrates are s een. Mild interstitial coarsening likely be present. Diffuse degenerative disc space narrowing and stephenson bchondral sclerosis noted throughout the thoracic spine. IMPRESSION: 1.No evidence of acute cardiopulmonary process 2. Mild interstitial coarsening 3. Degenerative changes of the thoracic spine Electronically signed by: Cornelio Moreno MD (10/28/2020 3:06 PM) [id number]
--- NOTE | 2020-10-31 08:44 | EKG ---
[facility] [address] [place] [address] Test Date: 2020-10-28 Test Time: 13:41:21 Pat Name: ANN-MARIE HATCH Department: Room: Gender: F Junior Qa Analyst: GRUPO : 1950 Requested By: DEBBIE BRAR Order Number: [id number] Reading MD: Soto Laguna MD Measurements Intervals [place] Rate: 75 P: 53 LA: 166 QRS: 11 QRSD: 66 T: 42 QT: 370 QTc: 416 Interpretive Statements SINUS RHYTHM Electronically Signed On 10-31-2020 9:22:37 CDT by Soto Laguna MD
== END ==
LOC: SURGPAT 12:31
PROVIDERS: ATTEND Obstetrics & Gynecology
DX: Z01.818 Encounter for other preprocedural examination (principal); J43.9 Emphysema, unspecified; M47.814 Spondylosis without myelopathy or radiculopathy, thoracic region; M48.04 Spinal stenosis, thoracic region; G95.89 Other specified diseases of spinal cord
CPT/HCPCS: 36415; 71046; 85025; 93005

== ENCOUNTER → 2020-11-01 | Outpatient (CLI) | payer MEDICARE, MEDICAID | LOC: LAB 09:39 | PROVIDERS: ATTEND Obstetrics & Gynecology | DX: Z01.812 Encounter for preprocedural laboratory examination (principal); Z20.822 Contact with and (suspected) exposure to COVID-19; J43.9 Emphysema, unspecified | CPT/HCPCS: U0003; U0005 ==

== ENCOUNTER 2020-11-03 06:02 | Day surgery (SDC) | payer MEDICARE, MEDICAID ==
[2020-10-28 13:01] VITALS: BP 146/84
[~2020-11-03] VITALS: Ht 161.3 cm; Wt 66.2 kg
[2020-11-03 06:18] VITALS: BP 163/100
[2020-11-03] MEDS ORDERED: IV RINGERS,LACTATED 1000ML 1,000 ML IV SCH ×2 (06:30→08:00)
[2020-11-03] MEDS ORDERED: MIDAZOLAM HCL/PF 2 MG/2 ML VIAL. ONE (07:02)
[2020-11-03] MEDS ORDERED: fentaNYL PF VIAL 100 MCG/2 ML VIAL ONE (07:02)
[2020-11-03] MEDS ORDERED: PROPOFOL 10 MG/ML (20ML) VIAL. IV ONE (07:05)
[2020-11-03] MEDS ORDERED: LIDOCAINE 2% PF 5 ML VIAL. ONE (07:05)
[2020-11-03] MEDS ORDERED: ONDANSETRON PF 4 MG/2 ML VIAL. ONE (07:06)
[2020-11-03] MEDS ORDERED: DEXAMETHASONE SOD PHOS 4 MG/ML VIAL ONE (07:06)
[2020-11-03] MEDS ORDERED: FERRIC SUBSULFATE 8 ML SOL.W.APPL TP ONE (07:09)
[2020-11-03] MEDS ORDERED: POTASSIUM IODIDE/IODINE 14 ML SOLUTION. TP ONE (07:09)
[2020-11-03] MEDS ORDERED: BUPIVACAINE-EPI 0.25%-1:200000 MPF 30 ML VIAL. ONE (07:09)
[2020-11-03] MEDS ORDERED: fentaNYL PF VIAL 100 MCG/2 ML VIAL IVP PRN ×2 (08:00)
[2020-11-03] MEDS ORDERED: PROCHLORPERAZINE 10 MG/2 ML VIAL. IVP PRN (08:00)
[2020-11-03] MEDS ORDERED: SEVOFLURANE 31 TO 60 MINUTES. IH ONE (08:05)
--- NOTE | 2020-11-03 08:08 | PDOC ---
BRIEF OPERATIVE NOTE Date: Nov 03, 2020 Pre-Op Diagnosis CHRISTIE 2 on colposcopy biopsy Post-Op Diagnosis same Procedure Performed LEEP with topt Surgeon Dr. Brar Anesthesiologist Dr. Clarke Anesthesia Type: General Blood Loss 0 IV Fluid see anesthesia Urine Output straight cath prior Specimens Obtained ectocervical and endocervical specimens (ecto 2 swipes, upper half marked with suture) Findings only one small area that did not accept lugols at 8-9 o'clock Complications none Operative Note [id number] DEBBIE BRAR MD Nov 03, 2020 08:08
[2020-11-03] MEDS ORDERED: NALOXONE 0.4 MG/ML VIAL. IV PRN (08:15)
[2020-11-03] MEDS ORDERED: SIMETHICONE 80 MG TAB.CHEW PO PRN (08:15)
[2020-11-03] MEDS ORDERED: diphenhydrAMINE 50 MG/ML VIAL IV PRN (08:15)
[2020-11-03] MEDS ORDERED: diphenhydrAMINE HCL 25 MG CAPSULE PO PRN (08:15)
[2020-11-03] MEDS ORDERED: MAG HYDROX/ALUMINUM HYD/SIMETH 30 ML ORAL.SUSP PO PRN (08:15)
[2020-11-03] MEDS ORDERED: CALCIUM CARBONATE 500 MG TAB.CHEW PO PRN (08:15)
[2020-11-03] MEDS ORDERED: HYDROcodone/APAP 5/325MG 1 TAB TABLET PO PRN (08:15)
[2020-11-03] MEDS ORDERED: 0.9 % SODIUM CHLORIDE 10 ML DISP.SYRIN. IV PRN (08:15)
--- NOTE | 2020-11-03 08:20 | OP ---
DATE OF SURGERY: 11/03/2020 PREOPERATIVE DIAGNOSIS: Cervical intraepithelial neoplasia, abnormal Pap smear with a colposcopy done in the office showing CHRISTIE 2 on biopsy. POSTOPERATIVE DIAGNOSIS: Cervical intraepithelial neoplasia, abnormal Pap smear with a colposcopy done in the office showing CHRISTIE 2 on biopsy. PROCEDURE: Loop electrosurgical excision procedure with endocervical top hat. SURGEON: Dr. Afsaneh Celeste. PIPE TURNER: OR personnel. ANESTHESIOLOGIST: Dr. Clarke. ANESTHESIA: General. ESTIMATED BLOOD LOSS: Zero. INTRAVENOUS FLUIDS: Please see anesthesia. Urine with a straight cath prior to procedure. SPECIMENS: Endocervical and ectocervical specimens sent separately. The ectocervical was taken in 2 swipes with the 12 o'clock specimen, the top part marked with a nylon suture and then the bottom one sent with it and then a separate endocervical specimen. FINDINGS: She had a flatter cervix, but there was only one area about 8-9 o'clock on the ectocervix that did not accept the Lugol's. If I do recall correctly, it was her endocervical specimen that came back positive, hence the reason for the top hat. COMPLICATIONS: None. This patient was taken to the operating room where general anesthesia was placed. The patient was placed in dorsal lithotomy position in [facility]. The patient's vagina was prepped with vinegar and straight cath urine was done prior to my arrival. Upon my arrival, a timeout was performed. Once everyone agreed on the patient, the site and the procedure. The procedure was initiated. A blue laser safe speculum was placed in the patient's vagina. Lugol's was used to delineate the abnormal areas. A narrow LEEP was obtained. It was set on a 70/30 coag. The top half was taken off, then the bottom half. Top half was marked with a nylon and then the endocervical specimen was taken at the end and sent that separately. Ball cautery was used for hemostasis. There was no active bleeding. The speculum was removed. All counts were correct x 2 by OR personnel. The patient was awakened from anesthesia and is already in the recovery room in stable condition. MARTINE DR: James TID: [id number]
[2020-11-03 08:37] VITALS: BP 140/84
--- NOTE | 2020-11-07 09:06 | PATHOLOGY ---
[facility] Accession Number: [id number] . 01 Material submitted: . PART A: endocervix - ENDOCERVIX PART B: ectocervix - ECTOCERVIX, TOP IS MARKED . 01 Clinical history: . ABNORMAL PAP, CERVICAL INTRA-EPITHELIAL LEEP . 02 Diagnosis: A. Uterine cervix, endocervix LEEP: - Focal mild dysplasia (CHRISTIE I). - CHRISTIE I is close to an inked margin. . B. Uterine cervix, ectocervix LEEP: - Mild to moderate dysplasia (CHRISTIE I-II), focal. - Dysplasia is focally present at the endocervical margin and ectocervical margin. (JPM:darnell; 11/04/2020) [facility] [place]/04/[place] 1805 Local . 02 Comment: Sections of the endocervix LEEP reveal a small focus of mild dysplasia (CHRISTIE I). Dysplasia is close to an inked margin. It is difficult to determine whether the margin is the endocervical margin or the "ectocervical" aspect of the endocervical LEEP. (JPM:darnell; 11/04/2020) . 02 Electronically signed: . Nestor Ash MD, Pathologist NPI- [id number] . 01 Gross description: . A. The specimen is received in formalin, labeled "Bre Sanchez, endocervix". Received is an intact, unoriented haywood irregular soft tissue fragment measuring 1.2 x 1.2 x 0.6 cm in greatest dimensions. The endocervical margin is inked blue and the remaining margin is inked black. The specimen is serially sectioned and entirely submitted in cassettes A1 through A4. . B. The specimen is received in formalin, labeled "Bre Sanchez, ectocervix top is marked ". Received are two segments of haywood irregular soft tissue, consistent with a LEEP specimen, measuring 1.7 and 2.0 cm in greatest dimensions. The smaller specimen is oriented with a suture designating "top" which is redesignated as 12:00. The oriented fragment encompasses 12:00 to 3:00 and 9:00 to 12:00. The ectocervical mucosa is white, focally hemorrhagic and smooth. The endocervical margin is inked blue and the remaining margin is inked black. . The unoriented specimen appears focally fragmented and displayed a scant amount of white hemorrhagic mucosa. The probable endocervical margin is inked blue and the remaining margin is inked black. The specimen is entirely submitted as follows: . B1: oriented fragment 12:00-3:00 B2: oriented fragment 9:00-12:00 B3-B5:Unoriented fragment radially sectioned ([facility]; 11/03/2020) [facility] 11/04/2020 1800 Local . 02 Pathologist provided ICD-10: N87.1, N87.0 . 02 CPT . 296312, [id number] Specimen Comment: A courtesy copy of this report has been sent to [phone], [phone] Specimen Comment: [id number] Specimen Comment: Report sent to / DR LOREDO Performed at: 01 [facility] [address] [place] [address], [place] [id number] MD Devan Wright MD Phone: [phone] Performed at: 02 [facility] [address] [place], [place] [id number] MD Nestor Ash MD Phone: [phone]
== END 2020-11-03 09:01 | disposition home or self-care (01) ==
LOC: SURG 06:02
PROVIDERS: ATTEND Obstetrics & Gynecology
DX: N87.1 Moderate cervical dysplasia (principal); J44.9 Chronic obstructive pulmonary disease, unspecified; M19.90 Unspecified osteoarthritis, unspecified site; F32.9 Major depressive disorder, single episode, unspecified; Z87.01 Personal history of pneumonia (recurrent); Z87.440 Personal history of urinary (tract) infections; F17.210 Nicotine dependence, cigarettes, uncomplicated; Z98.51 Tubal ligation status; Z98.890 Other specified postprocedural states
CPT/HCPCS: 57522; 88307; A4930; J1100; J2250; J2405; J2704; J3010; J3490

== ENCOUNTER 2020-11-06 20:10 | Emergency (ER) | payer MEDICARE, MEDICAID | END 2020-11-06 21:00 | disposition left against medical advice (07) | LOC: ER 20:10 | DX: R05 Cough (principal); R09.81 Nasal congestion; R51.9 Headache, unspecified; Z53.21 Procedure and treatment not carried out due to patient leaving prior to being seen by health care provider ==

== ENCOUNTER 2020-11-08 12:34 | Emergency (ER) | payer MEDICARE, MEDICAID ==
[~2020-11-08] VITALS: Ht 160 cm; Wt 62.1 kg
--- NOTE | 2020-11-08 12:58 | PHYS DOC ---
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,POSSIBLE CA; Ephysema (KAVEH KAUFFMAN APRN) Past Surgical History: Splenectomy, Tubal ligation Additional Past Surgical Histo: TUBAL (KAVEH KAUFFMAN APRN) Smoking Status: Current Every Day Smoker Alcohol Use: None Drug Use: None (KAVEH KAUFFMAN APRN) General Adult EDM: Chief Complaint: POST-OP PROBLEM HPI: HPI: Patient is a 70-year-old female who comes emergency department today with chief complaint of "I am feeling like crap all over "patient reports having a LEEP procedure performed here on 03 November, patient reports that she was discharged home with sore throat, headaches, fever chills, body aches. Patient reports she was told it was because of her surgery and that that should subside. Patient reports it has become worse over the past few days. Patient reports she thinks she might have a fever however has not taken her temperature. Has not tried any [id number] medication remedies or nonpharmacological remedies to relieve symptoms. Patient reports taking her COPD inhalers as directed, continues to be a daily cigarette smoker, occasional alcohol use, denies drug use. Patient reports she has not received the COVID-19 virus vaccination series. Patient states she was told on the that she did not have the COVID-19 virus. Patient denies chest pains, shortness of breath, nasal or chest congestion. Patient denies loss of taste or loss of smell. Patient denies any other physical complaints or physical concerns. (KAVEH KAUFFMAN APRN) Review of Systems: Review of Systems: 14 body systems of review of systems have been reviewed. See HPI for pertinent positives and negative responses, otherwise all other systems are negative, nonpertinent or noncontributory. Constitutional: Negative except as outlined in HPI above. Skin: Negative except as outlined in HPI above. Eyes: Negative except as outlined in HPI above. HENT: Negative except as outlined in HPI above. Respiratory: Negative except as outlined in HPI above. Cardiovascular: Negative except as outlined in HPI above. GI: Negative except as outlined in HPI above. : Negative except as outlined in HPI above. Musculoskeletal: Negative except as outlined in HPI above. Integument: Negative except as outlined in HPI above. Neurologic: Negative except as outlined in HPI above. Endocrine: Negative except as outlined in HPI above. Lymphatic: Negative except as outlined in HPI above. Psychiatric: Negative except as outlined in HPI above. (KAVEH KAUFFMAN APRN) Heart Score: C/O Chest Pain: No Risk Factors: Risk Factors: DM, Current or recent (<one month) smoker, HTN, HLP, family history of CAD, obesity. Risk Scores: Score 0 - 3: 2.5% MACE over next 6 weeks - Discharge Home Score 4 - 6: 20.3% MACE over next 6 weeks - Admit for Clinical Observation Score 7 - 10: 72.7% MACE over next 6 weeks - Early Invasive Strategies (KAVEH KAUFFMAN APRN) Allergies: Allergies: Allergies Coded Allergies Type Severity Reaction Last Updated Verified morphine Allergy Severe rash and throat swelling 11/03/20 Yes meperidine Allergy Intermediate rash 11/03/20 Yes (KAVEH KAUFFMAN APRN) Physical Exam: PE: Constitutional: Well developed, well nourished, no acute distress, non-toxic appearance. 70-year-old female appears uncomfortable but remains nontoxic in appearance. HENT: Normocephalic, atraumatic. Eyes: Conjunctiva normal, no discharge. Neck: Normal range of motion, no stridor. Cardiovascular: No cyanosis appreciated, distal cap refill less than 2 seconds. Heart sounds S1-S2, heart rate slightly tachycardic at 110 bpm. Lungs & Thorax: Patient is in no respiratory distress, no audible adventitious lung sounds appreciated. Lung sounds clear to auscultation all lung carty. Normal work of breathing. Abdomen: Nontender, no abnormalities noted. Skin: Warm, dry, no erythema, no rash. Back: No tenderness, no deformities. Extremities: No tenderness, no cyanosis, no clubbing, ROM intact, no edema. Neurologic: Alert and oriented X 3, normal motor function, normal sensory function, no focal deficits noted. Psychologic: Affect normal, judgement normal, mood normal. (KAVEH KAUFFMAN APRN) Current Patient Data: Labs: Laboratory Tests Test 11/08/20 12:44 11/08/20 13:10 11/08/20 13:15 Urine Collection Type Unknown Urine Color Yellow Urine Clarity Cloudy Urine pH 6.0 Urine Specific [place] 1.025 Urine Protein 30 mg/dL Urine Glucose (UA) Negative mg/dL Urine Ketones (Stick) Negative mg/dL Urine Blood Large Urine Nitrite Negative Urine Bilirubin Small Urine Urobilinogen Dipstick 1.0 mg/dL Urine Leukocyte Esterase Large Urine RBC >40 /HPF Urine WBC >40 /HPF Urine Squamous Epithelial Cells Mod /LPF Urine Bacteria Moderate /HPF Urine Mucus Marked /LPF Influenza Type A Antigen Negative Influenza Type B Antigen Negative SARS-CoV-2 Antigen (Rapid) Positive White Blood Count 5.9 x10^3/uL Red Blood Count 5.59 x10^6/uL Hemoglobin 18.4 g/dL Hematocrit 52.3 % Mean Corpuscular Volume 94 fL Mean Corpuscular Hemoglobin 33 pg Mean Corpuscular Hemoglobin Concent 35 g/dL Red Cell Distribution Width 13.7 % Platelet Count 168 x10^3/uL Neutrophils (%) (Auto) 66 % Lymphocytes (%) (Auto) 25 % Monocytes (%) (Auto) 9 % Eosinophils (%) (Auto) 0 % Basophils (%) (Auto) 0 % Neutrophils # (Auto) 3.9 x10^3/uL Lymphocytes # (Auto) 1.4 x10^3/uL Monocytes # (Auto) 0.5 x10^3/uL Eosinophils # (Auto) 0.0 x10^3/uL Basophils # (Auto) 0.0 x10^3/uL Sodium Level 136 mmol/L Potassium Level 4.4 mmol/L Chloride Level 102 mmol/L Carbon Dioxide Level 25 mmol/L Anion Gap 9 Blood Urea Nitrogen 11 mg/dL Creatinine 0.9 mg/dL Estimated GFR (Cockcroft-Gault) 62.3 BUN/Creatinine Ratio 12 Glucose Level 137 mg/dL Calcium Level 8.8 mg/dL Total Bilirubin 0.6 mg/dL Aspartate Amino Transf (AST/SGOT) 27 U/L Alanine Aminotransferase (ALT/SGPT) 32 U/L Alkaline Phosphatase 94 U/L Total Protein 7.3 g/dL Albumin 3.2 g/dL Albumin/Globulin Ratio 0.8 Current Medications Medications (Trade) Dose Ordered Sig/Jailyn Route PRN Reason Start Time Stop Time Status Last Admin Dose Admin Sodium Chloride 1,000 ml @ 1,000 mls/hr 1X ONCE IV 11/08/20 13:15 11/08/20 14:14 DC 11/08/20 13:45 (KAVEH KAUFFMAN APRN) EKG: EKG: [] (KAVEH KAUFFMAN APRN) Radiology/Procedures: Radiology/Procedures: PATIENT: ANN-MARIE HATCH AACCOUNT: [id number] : 1950 LOCATION: ER AGE: 70 SEX: F EXAM STATUS: PRE ER ORD. PHYSICIAN: KAVHE KAUFFMAN APRN REASON: Cough, fever, PUI PROCEDURE: CHEST AP ONLY AP chest. HISTORY: Cough and fever AP view was taken of the chest. Heart is normal in size. There is no pleural effusion. There are no confluent infiltrates. Heart is normal in size. There is linear scarring along the left lung base without change. IMPRESSION: 1. Right base linear scarring without other infiltrates. Electronically signed by: Fernando Antonio MD (11/08/2020 1:51 PM) [facility] (KAVEH KAUFFMAN APRN) Course & Med Decision Making: Course & Med Decision Making Pertinent Labs and Imaging studies reviewed. (See chart for details) 70-year-old female, vital signs reviewed, presents to the emergency department complaining of body aches and generalized malaise since being released from the hospital after a LEEP procedure on 03 November 2020. Patient's physical presentation and examination are concerning for viral syndrome, will order rapid flu test, COVID-19 testing, CBC, CMP. X-ray. The patient is not hypoxic, is not in respiratory distress. 1 L normal saline IV. Patient's chest x-ray is unremarkable. Patient's flu test negative, patient is positive for rapid COVID-19 testing. Patient's CBC concerning for hemoconcentration, currently treating with 1 L normal saline IV. Most likely related to dehydration. Patient's CMP nonconcerning. Discussed findings with patient, COVID-19 social distancing and home care. Strict follow-up with primary care this week, return to ER precautions and concerns, patient gave verbal understanding of and is amenable to ED discharge planning. Upon reevaluation of the patient, patient reports she feels much better since having the liter of normal saline, the patient was initially tachycardic at 110 bpm during initial evaluation, patient's heart rate now 90. Patient continues to deny chest pain or shortness of breath. Patient continues to remain nontoxic in appearance. Discussed with the patient all findings and diagnostic testing as well as the need to follow-up with their primary care provider for further evaluation and treatment or return to the ED if any new or worsening symptoms. Strict return precautions were also discussed at length, the patient voiced understanding and agreement with the discharge planning. The patient was nontoxic in appearance, in no apparent distress, and hemodyn amically stable at the time of disposition. (KAVEH KAUFFMAN APRN) Dragon Disclaimer: SPARQ Disclaimer: This electronic medical record was generated, in whole or in part, using a voice recognition dictation system. (KAVEH KAUFFMAN APRN) Departure Departure Impression: Primary Impression: Viral syndrome Additional Impression: COVID-19 virus infection Disposition: HOME / SELF CARE / HOMELESS Condition: GOOD Referrals: ISABELLE LOREDO APRN (PCP) Patient Instructions: Viral Syndrome Additional Instructions: You were seen today for body aches and malaise since your surgery release this month. You were tested today for the COVID-19 virus and the flu virus. You do not have the flu, however you did test positive for the COVID-19 virus. I have attached information to this document regarding home care for COVID-19 virus patients, please review. Please follow-up with your primary care physician this week for ongoing symptoms. Return to the emergency department for worsening symptoms or other concerns. As we discussed at length, please continue to take [id number] Tylenol and/or Motrin for fevers, aches, pains. Please increase your fluid intake at home as this may help relieve symptoms. Thank you for visiting our Emergency Department. It was a pleasure taking care of you today in the emergency department and we appreciate you trusting us with your care. If any additional problems come up don't hesitate to return to visit us. Please follow up with your primary care provider so they can plan additional care if needed and know about the problem that you had. If symptoms worsen come back to the Emergency Department. Any concerning symptoms that start such as chest pain, shortness of air, weakness or numbness on one side of the body, running high fevers or any other concerning symptoms return to the ER. You have been tested for or diagnosed with COVID-19. It is an infection caused by a new type of coronavirus. COVID-19 will cause cold-like or mild flu symptoms in most. It can cause more severe symptoms like problems breathing in some. There is no treatment for COVID-19. The body will clear the infection over time. Self-care will help to ease discomfort. Steps to Take: Self-Care Rest as needed. Healthy habits may help you feel better. Steps include: Choose healthy foods including fruits and vegetables. Drink water throughout the day. Get plenty of sleep each night. If you smoke, try to quit. It may ease breathing. Avoid alcohol. Keep Others Healthy The virus can spread to others. Droplets are released every time you sneeze or cough. The droplets can get into the mouth, nose, or eyes of people near you and lead to infection. To lower the chances of spreading COVID-19 to others: Stay at home until your doctor has said it is safe to leave. If you tested positive this will mean staying isolated until both of the following are true: At least 7 days have passed since the start of illness. You are free of fever for at least 72 hours without the use of medicine. During this time: - Avoid public areas, events, or transportation. Do not return to work or school until your doctor has said it is safe to do so. - Call ahead if you need to go to a medical center. Let them know you may have COVID-19. It will help them guide you where to go. They may also ask you to wear a facemask when you come to the office. - If you call for emergency medical services, let them know you may have COVID- 19. While at home: - Try to avoid close contact with others. Stay about 6 feet away. - If possible, spend most of your time in a separate room from others. - Use a face mask if you will be in close contact with others such as sharing a room or vehicle. - Have someone wipe down common surfaces in the home. Use household tube room cashier every day on areas like doorknobs, counters, or sinks. - Cough or sneeze into a tissue. Throw the tissue away right after use. If a tissue is not available, cough or sneeze into your elbow. - Wash your hands often. Wash them after sneezing or coughing. Use soap and water and wash for at least 20 seconds. Alcohol based hand tower cleaner can be used if soap and water is not available. - Do not prepare food for others. Avoid sharing personal items like forks, spoons, or toothbrushes. - Avoid close contact with pets while you are sick. There is no evidence of the virus passing to pets. This is a safety step until more is known about this virus. Isolation can be frustrating. Social interaction can help. Keep in touch with friends and family through phone and tech options. You can still interact with others in your home, just keep a safe distance of about 6 feet. Follow-up: Your doctors office will check in with you to see if there are any changes in your health. You may be asked to keep track of symptoms to share with them. They will also let you know when you are clear to be in public again. Problems to Look Out For: Contact your doctor if your recovery is not going as you expect. Get emergency care if you have problems such as: - Trouble breathing - Nonstop chest pain or pressure - Changes in awareness, confusion, or problems waking - Lips or face have bluish color - Worsening of symptoms If you think you have an emergency, call for emergency medical services right away. As taken from [facility] EMERGENCY DEPARTMENT GENERAL DISCHARGE INSTRUCTIONS Thank you for coming to [facility] Emergency Department (ED) today and trusting us with you care. We trust that you had a positive experience in our Emergency Department. If you wish to speak to the department management, you may call the Director at [phone]. YOUR FOLLOW UP INSTRUCTIONS ARE FOLLOWS: 1. Do you have a private Doctor? If you do not have a private doctor, please ask for a resource list of physicians or clinics that may be able to assist you with follow up care. 2. The Emergency Physicain has interpreted your x-rays. The X-Ray specialist will also review them. If there is a change in the findings, you will be notified in 48 hours when at all possible. 3. A lab test or culture has been done, your results will be reviewed and you will be notified if you need a change in treatment. ADDITIONAL INSTRUCTIONS AND INFORMATION: 1. Your care today has been supervised by a physician who is specially trained in emergency care. Many problems require more than one evaluation for a complete diagnosis and treatment. We recommend that you schedule your follow up appointment as recommended to ensure complete treatment of you illness or injury. If you are unable to obtain follow up care and continue to have a problem, or if your condition worsens, we recommend that you return to the ED. 2. We are not able to safely determine your condition over the phone nor are we able to give sound medical advice over the phone. For these safety reasons, if you call for medical advice we will ask you to come to the ED for further evaluation. 3. If you have any questions regarding these discharge instructions please call the ED at [phone]. SAFETY INFORMATION: In the interest of safety, wellness, and injury prevention; we encourage you to wear your sealbelt, if you smoke; quite smoking, and we encourage family to use a protective helmet for bicycling and other sporting events that present an increased risk for head injury. IF YOUR SYMPTOMS WORSEN OR NEW SYMPTOMS DEVELOP, OR YOU HAVE CONCERNS ABOUT YOUR CONDITION; OR IF YOUR CONDITION WORSENS WHILE YOU ARE WAITING FOR YOUR FOLLOW UP APPOINTMENT; EITHER CONTACT YOUR PRIMARY CARE DOCTOR, THE PHYSICIAN WHOSE NAME AND NUMBER YOU WERE GIVEN, OR RETURN TO THE ED IMMEDIATELY. Attending Signature I have participated in the care of this patient and I have reviewed and agree with all pertinent clinical information above including history, exam, and recommendations. (WENDY ZUÑIGA DO) KAVEH KAUFFMAN APRN Nov 08, 2020 12:58 WENDY ZUÑIGA DO Nov 08, 2020 15:44
[2020-11-08 13:13] LABS: BILIRUBIN,URINE SMALL (NEG); CLARITY,URINE CLOUDY; NITRITE,URINE NEGATIVE (NEG); PROTEIN,URINE 30 mg/dL (NEG-TRACE)
[2020-11-08] MEDS ORDERED: IV NORMAL SALINE 1000ML BAG 1,000 ML IV ONE (13:15)
[2020-11-08 13:16] LABS: COLOR,URINE YELLOW
[2020-11-08 13:18] LABS: BACTERIA,URINE MODERATE /HPF (0-FEW); RBC,URINE >40 /HPF (0-2); WBC,URINE >40 /HPF (0-4)
[2020-11-08 13:26] LABS: BASO % 0 % (0-3); EOS % 0 % (0-3); HEMATOCRIT 52.3 % (36.0-47.0); HEMOGLOBIN 18.4 g/dL (12.0-15.5); LYMPH # 1.4 x10^3/uL (1.0-4.8); LYMPH % 25 % (24-48); MEAN CORPUSCULAR HEMOGLOBIN 33 pg (25-35); MEAN CORPUSCULAR HGB CONC 35 g/dL (31-37); MEAN CORPUSCULAR VOLUME 94 fL (79-100); MONO # 0.5 x10^3/uL (0.0-1.1); MONO % 9 % (0-9); NEUT # 3.9 x10^3/uL (1.8-7.7); NEUT % 66 % (31-73); PLATELET COUNT 168 x10^3/uL (140-400); RED BLOOD COUNT 5.59 x10^6/uL (3.50-5.40); RED CELL DISTRIBUTION WIDTH 13.7 % (11.5-14.5); WHITE BLOOD COUNT 5.9 x10^3/uL (4.0-11.0)
[2020-11-08 13:35] LABS: CALCIUM 8.8 mg/dL (8.5-10.1); CREATININE 0.9 mg/dL (0.6-1.0); GFR 62.3; POTASSIUM 4.4 mmol/L (3.5-5.1)
[2020-11-08 13:41] LABS: ALBUMIN 3.2 g/dL (3.4-5.0); ALBUMIN/GLOBULIN RATIO 0.8 (1.0-1.7); TOTAL BILIRUBIN 0.6 mg/dL (0.2-1.0); TOTAL PROTEIN 7.3 g/dL (6.4-8.2)
--- NOTE | 2020-11-08 13:54 | RAD ---
AP chest. HISTORY: Cough and fever AP view was taken of the chest. Heart is normal in size. There is no pleural effusion. There are no c onfluent infiltrates. Heart is normal in size. There is linear scarring along the left lung base with out change. IMPRESSION: 1. Right base linear scarring without other infiltrates. Electronically signed by: Fernando Antonio MD (11/08/2020 1:51 PM) [facility]
[2020-11-08 14:23] LABS: INFLUENZA A PATIENT NEGATIVE (NEGATIVE); INFLUENZA B PATIENT NEGATIVE (NEGATIVE)
[2020-11-08 15:20] VITALS: BP 116/58
== END 2020-11-08 15:50 | disposition home or self-care (01) ==
LOC: ER 12:34
DX: U07.1 COVID-19 (principal); B34.9 Viral infection, unspecified; J44.9 Chronic obstructive pulmonary disease, unspecified; F17.200 Nicotine dependence, unspecified, uncomplicated; Z88.1 Allergy status to other antibiotic agents; Z88.5 Allergy status to narcotic agent
CPT/HCPCS: 36415; 71045; 80053; 81001; 85025; 87040; 87070; 87086; 87426; 87804; 87880; 96360; 99285; J7030

== ENCOUNTER 2020-11-12 19:27 | Emergency (ER) | payer MEDICARE, MEDICAID | END 2020-11-12 19:53 | disposition left against medical advice (07) | LOC: ER 19:27 | DX: U07.1 COVID-19 (principal); Z53.21 Procedure and treatment not carried out due to patient leaving prior to being seen by health care provider ==

== ENCOUNTER 2021-03-24 12:33 | Emergency (ER) | payer MEDICARE, MEDICAID ==
[~2021-03-24] VITALS: Ht 160 cm; Wt 60.4 kg
[~2021-03-24 12:33] MED LIST changes: +CYCL10TA19 PO; -CYCL10TA2 PO
[2021-03-24] MEDS ORDERED: IV NORMAL SALINE 1000ML BAG 1,000 ML IV ONE (13:45)
[2021-03-24] MEDS ORDERED: IBUPROFEN 200 MG TABLET. PO ONE (13:45)
[2021-03-24] MEDS ORDERED: HYDROcodone/APAP 10/325 1 TAB TABLET PO ONE (13:45)
--- NOTE | 2021-03-24 13:50 | PHYS DOC ---
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 Patient denies any acute injury or acute change in symptoms, patient states she had a MRI done of her back in August 2020 and was told she had multiple bulging disks along her kidney and L-spine. Patient states she has been seen pain management however after receiving an injection in her back she did not notice any relief in pain so she did not go back, reports last appointment was approximately 6 months ago. Patient states she has followed up several times with her primary care provider Oliverio red APRN who has been treating her with water pills for her lower extremity swelling and pain. Patient states she is upset that she is not receiving hydrocodone pain medication any longer to treat her chronic lower extremity pain. Patient reports she is currently being treated with Macrobid for a bladder infection has 2 days left on a 7-day regimen. Patient describes pain as a burning shooting pain when ambulating and rates a 10 out of 10, states her pain decreases to a 6 out of 10 at rest. Patient reports she has not had any hydrocodone pain medication to treat her pain for several weeks now. Patient denies an increase or change in her discomfort over the past 2 years however reports she has noticed lower extremity swelling of her thighs over the past 6 months and is not being relieved with her water pills. Patient denies numbness or tingling to her extremities. Denies bowel or bladder incontinence, denies urinary retention. Denies numbness or tingling to her genitals or buttocks. Denies a history of IV drug use. Does r eport a history of abnormal cells on her uterus and had a LEEP procedure "few months ago "and has not followed up with the physician that performed a LEEP procedure for follow-up of cancer investigation. Denies a history of immunosuppression, recent fever or chills. Patient reports she continues to smoke cigarettes, occasional alcohol use, denies illicit drug use. Patient denies chest pains, chest palpitations, shortness of breath (KAVEH KAUFFMAN APRN) Review of Systems: Review of Systems: 14 body systems of review of systems have been reviewed. See HPI for pertinent positives and negative responses, otherwise all other systems are negative, nonpertinent or noncontributory. Constitutional: Negative except as outlined in HPI above. Skin: Negative except as outlined in HPI above. Eyes: Negative except as outlined in HPI above. HENT: Negative except as outlined in HPI above. Respiratory: Negative except as outlined in HPI above. Cardiovascular: Negative except as outlined in HPI above. GI: Negative except as outlined in HPI above. : Negative except as outlined in HPI above. Musculoskeletal: Negative except as outlined in HPI above. Integument: Negative except as outlined in HPI above. Neurologic: Negative except as outlined in HPI above. Endocrine: Negative except as outlined in HPI above. Lymphatic: Negative except as outlined in HPI above. Psychiatric: Negative except as outlined in HPI above. (KAVEH KAUFFMAN APRN) Heart Score: C/O Chest Pain: No Risk Factors: Risk Factors: DM, Current or recent (<one month) smoker, HTN, HLP, family history of CAD, obesity. Risk Scores: Score 0 - 3: 2.5% MACE over next 6 weeks - Discharge Home Score 4 - 6: 20.3% MACE over next 6 weeks - Admit for Clinical Observation Score 7 - 10: 72.7% MACE over next 6 weeks - Early Invasive Strategies (KAVEH KAUFFMAN APRN) Current Medications: Current Medications Medications (Trade) Dose Ordered Sig/Jailyn Start Time Stop Time Status Last Admin Dose Admin Acetaminophen/ Hydrocodone Bitart (Lortab 10/325) 1 tab 1X ONCE 03/24/21 13:45 03/24/21 13:48 DC Ibuprofen (Motrin) 600 mg 1X ONCE 03/24/21 13:45 03/24/21 13:48 DC Sodium Chloride 1,000 ml @ 1,000 mls/hr 1X ONCE 03/24/21 13:45 03/24/21 14:44 (KAVEH KAUFFMAN APRN) Allergies: Allergies: Allergies Coded Allergies Type Severity Reaction Last Updated Verified morphine Allergy Severe rash and throat swelling 11/03/20 Yes meperidine Allergy Intermediate rash 11/03/20 Yes (KAVEH KAUFFMAN APRN) Physical Exam: PE: Constitutional: Well developed, well nourished, no acute distress, non-toxic appearance. 71-year-old female moving around in bed, fidgety, otherwise in no apparent distress. HENT: Normocephalic, atraumatic. Eyes: Conjunctiva normal, no discharge. Neck: Normal range of motion, no stridor. Cardiovascular: No cyanosis appreciated, distal cap refill less than 2 seconds. Lungs & Thorax: Patient is in no respiratory distress, no audible adventitious lung sounds appreciated. Abdomen: Nontender, no abnormalities noted. Skin: Warm, dry, no erythema, no rash. Back: No deformities, step-offs, ecchymosis, crepitus felt on palpation of the thoracic and lumbar spine. Pain elicited with palpation bilateral lower lumbar area. Extremities: no cyanosis, no clubbing, ROM intact, no edema. Pain to palpation of anterior medial thighs bilaterally, no discoloration of skin, skin temperature normal and equal bilaterally, no appreciable swelling, no pain to palpation distal from bilateral knees, no edema present, 2+ dorsalis pedal pulses bilaterally, distal cap refill of lower extremities less than 2-seconds, normal gait, patient moving legs during examination. Intact 5/5 motor strength of bilateral lower extremities with hip flexion, knee flexion/extension/adduction, plantar/dorsiflexion at the ankle, dorsiflexion of the toes bilaterally. Neurologic: Alert and oriented X 3, normal motor function, normal sensory function, no focal deficits noted. Psychologic: Affect normal, judgement normal, mood normal. (KAVEH KAUFFMAN APRN) Current Patient Data: Labs: Laboratory Tests Test 03/24/21 14:10 03/24/21 14:35 White Blood Count 6.1 x10^3/uL Red Blood Count 5.11 x10^6/uL Hemoglobin 16.3 g/dL Hematocrit 47.3 % Mean Corpuscular Volume 93 fL Mean Corpuscular Hemoglobin 32 pg Mean Corpuscular Hemoglobin Concent 34 g/dL Red Cell Distribution Width 12.7 % Platelet Count 233 x10^3/uL Neutrophils (%) (Auto) 50 % Lymphocytes (%) (Auto) 35 % Monocytes (%) (Auto) 11 % Eosinophils (%) (Auto) 3 % Basophils (%) (Auto) 1 % Neutrophils # (Auto) 3.1 x10^3/uL Lymphocytes # (Auto) 2.2 x10^3/uL Monocytes # (Auto) 0.7 x10^3/uL Eosinophils # (Auto) 0.2 x10^3/uL Basophils # (Auto) 0.1 x10^3/uL Sodium Level 143 mmol/L Potassium Level 4.4 mmol/L Chloride Level 107 mmol/L Carbon Dioxide Level 27 mmol/L Anion Gap 9 Blood Urea Nitrogen 15 mg/dL Creatinine 0.7 mg/dL Estimated GFR (Cockcroft-Gault) 83.0 BUN/Creatinine Ratio 21 Glucose Level 95 mg/dL Calcium Level 8.5 mg/dL Total Bilirubin 0.4 mg/dL Aspartate Amino Transf (AST/SGOT) 25 U/L Alanine Aminotransferase (ALT/SGPT) 38 U/L Alkaline Phosphatase 104 U/L Total Protein 6.9 g/dL Albumin 3.3 g/dL Albumin/Globulin Ratio 0.9 Current Medications Medications (Trade) Dose Ordered Sig/Jailyn Route PRN Reason Start Time Stop Time Status Last Admin Dose Admin Sodium Chloride 1,000 ml @ 1,000 mls/hr 1X ONCE IV 03/24/21 13:45 03/24/21 14:44 DC 03/24/21 14:16 Acetaminophen/ Hydrocodone Bitart (Lortab 10/325) 1 tab 1X ONCE PO 03/24/21 13:45 03/24/21 13:48 DC 03/24/21 14:16 Ibuprofen (Motrin) 600 mg 1X ONCE PO 03/24/21 13:45 03/24/21 13:48 DC 03/24/21 14:16 (KAVEH KAUFFMAN APRN) EKG: EKG: [] (KAVEH KAUFFMAN APRN) Radiology/Procedures: Radiology/Procedures: [] (KAVEH KAUFFMAN APRN) Impression: [facility] [address] [place], [place] [id number] IMAGING REPORT Signed PATIENT: ANN-MARIE HATCH AACCOUNT: [id number] : 1950 LOCATION: ER AGE: 71 SEX: F EXAM STATUS: REG ER ORD. PHYSICIAN: KAVEH KAUFFMAN APRN REASON: Bilateral lower extremity swelling and pain PROCEDURE: VENOUS LOWER EXT BILATERAL Bilateral Lower Extremity Venous Doppler: Reason for examination: Bilateral lower extremity swelling, pain The lower extremity venous systems bilaterally were evaluated from the common femoral and greater saphenous veins distally to the calf veins with grayscale imaging, color-flow imaging and spectral analysis. There is normal blood flow without deep venous thrombosis. There is normal response of the venous systems to compression and augmentation. Impression: No deep venous thrombosis in the lower extremity venous systems bilaterally. Electronically signed by: Fernando Antonio MD (03/24/2021 2:58 PM) [facility] [place] DICTATED and SIGNED BY: FERNANDO ANTONIO MD DATE: 03/24/21 [id number] (TREVOR TORRES MD) Course & Med Decision Making: Course & Med Decision Making Pertinent Labs and Imaging studies reviewed. (See chart for details) 71-year-old female, vital signs reviewed, presents to the emergency department concerning ongoing bilateral lower extremity pain for the past 2 years with lower extremity swelling without relief from water pills prescribed by primary care provider, physical examination concerning for DVT related to pain with palpation and patient's report of swelling however no appreciable swelling or ed patricia was noted during examination. The patient is not febrile, is tachycardic with heart rate of 100, triage blood pressure is elevated, patient reports she has not taken her blood pressure medications this morning yet. There is no saddle anesthesia, patient had MRI on 08/29/2020 that revealed moderate degenerative changes of the thoracolumbar spine with multiple bulging disks, the re are no new symptoms or physical findings that would warrant emergent imaging. Will order bilateral lower extremity venous Doppler DVT study related to pain and reported swelling. We will give p.o. pain medication, CBC, CMP, 1 L normal saline. There is a suspicion for drug-seeking behavior. The patient reports she has only seen her primary care doctor and pain management for her symptoms. Has not been recommended follow-up with neurosurgery for evaluation of chronic symptoms and abnormal MRI findings. CBC, CMP unremarkable, DVT study unremarkable. Upon reevaluation of the patient, patient reports pain relief with medications given, patient is asking for prescription for hydrocodone, discussed with patient we will not prescribe hydrocodone at emergency department however recommended follow-up with her pain management physician for ongoing evaluation and pain management therapies, strict follow-up with primary care, patient reports she has appointment tomorrow morning with her primary care provider, elias dwyerussed with patient recommendation of neurosurgery and evaluation, will give recommendation of neurosurgeon, discussed with patient to make appointment for evaluation of her chronic back pain and lower extremity symptoms and MRI findings. Patient reports she has 600 mg ibuprofen medication at home to take for her pain along with prescribed muscle relaxers, discussed with patient to continue her pain medication therapy as prescribed by her primary care providers. Patient gave verbal understanding of and is amenable to ED discharge planning. Upon reevaluation of patient's vital signs, patient remains blood pressure has reduced, blood pressure 130/100, discussed with patient to please take blood pressure medication as prescribed by her primary care doctor when she returns home today, patient's heart rate initially tachycardic between 101 10, is now 78 bpm, the patient is hemodynamically stable at time of discharge, in no apparent distress. Discussed with the patient all findings and diagnostic testing as well as the need to follow-up with their primary care provider for further evaluation and treatment or return to the ED if any new or worsening symptoms. Strict return precautions were also discussed at length, the patient voiced understanding and agreement with the discharge planning. The patient was nontoxic in appearance, in no apparent distress, and hemodynamically stable at the time of disposition. (KAVEH KAUFFMAN APRN) Course & Med Decision Making I have reviewed the [employer]'s note and plan of care. I was available for consultation as needed during the patient's visit in the emergency department. (TREVOR TORRES MD) [place] Disclaimer: Jarret Disclaimer: This electronic medical record was generated, in whole or in part, using a voice recognition dictation system. (KAVEH KAUFFMAN APRN) Departure Departure Impression: Primary Impression: Low back pain Qualified Codes: M54.42 - Lumbago with sciatica, left side; M54.41 - Lumbago with sciatica, right side; G89.29 - Other chronic pain Additional Impression: Bilateral leg pain Disposition: HOME / SELF CARE / HOMELESS Condition: GOOD Referrals: ISABELLE LOREDO APRN (PCP) TOI RIVERA MD Patient Instructions: Back Pain, Adult Additional Instructions: You were seen today in the emergency department for ongoing lower back and extremity pains, you did report swelling of both your legs, a Doppler study was done of your lower extremities that did not find any concerning signs of deep vein thrombosis or blood clots. You reported good pain relief with the medications given today in the emergency department. Your lab work did not show any concerning signs of infectious process, anemias, or electrolyte abnormalities that would warrant immediate attention or admission to the hospital. As we discussed, please keep your appointment with your doctor terry castellanos, we also discussed following up with pain management for ongoing evaluation and pain management therapy. We had discussed follow-up with a neurosurgeon to evaluate your ongoing back and leg pains, and evaluation of your MRI that was performed in August 2020. I have given a recommendation for you to see Dr. Toi Wagner, please discuss with your primary care doctor tomorrow about your ED visit today and recommendations for neurosurgery consult. As we discussed, please follow-up with the doctor that performed your LEEP procedure for ongoing investigation of your abnormal cells of your uterus. Please continue to take all of your home medications as prescribed by your primary care provider. Thank you for visiting our Emergency Department. It was a pleasure taking care of you today in the emergency department and we appreciate you trusting us with your care. If any additional problems come up don't hesitate to return to visit us. Please follow up with your primary care provider so they can plan additional care if needed and know about the problem that you had. If symptoms worsen come back to the Emergency Department. Any concerning symptoms that start such as chest pain, shortness of air, weakness or numbness on one side of the body, running high fevers or any other concerning symptoms return to the ER. EMERGENCY DEPARTMENT GENERAL DISCHARGE INSTRUCTIONS Thank you for coming to [facility] Emergency Department (ED) today and trusting us with you care. We trust that you had a positive experience in our Emergency Department. If you wish to speak to the department management, you may call the Director at [phone]. YOUR FOLLOW UP INSTRUCTIONS ARE FOLLOWS: 1. Do you have a private Doctor? If you do not have a private doctor, please ask for a resource list of physicians or clinics that may be able to assist you with follow up care. 2. The Emergency Physicain has interpreted your x-rays. The X-Ray specialist will also review them. If there is a change in the findings, you will be notified in 48 hours when at all possible. 3. A lab test or culture has been done, your results will be reviewed and you will be notified if you need a change in treatment. ADDITIONAL INSTRUCTIONS AND INFORMATION: 1. Your care today has been supervised by a physician who is specially trained in emergency care. Many problems require more than one evaluation for a complete diagnosis and treatment. We recommend that you schedule your follow up appointment as recommended to ensure complete treatment of you illness or injury. If you are unable to obtain follow up care and continue to have a problem, or if your condition worsens, we recommend that you return to the ED. 2. We are not able to safely determine your condition over the phone nor are we able to give sound medical advice over the phone. For these safety reasons, if you call for medical advice we will ask you to come to the ED for further evaluation. 3. If you have any questions regarding these discharge instructions please call the ED at [phone]. SAFETY INFORMATION: In the interest of safety, wellness, and injury prevention; we encourage you to wear your sealbelt, if you smoke; quite smoking, and we encourage family to use a protective helmet for bicycling and other sporting events that present an increased risk for head injury. IF YOUR SYMPTOMS WORSEN OR NEW SYMPTOMS DEVELOP, OR YOU HAVE CONCERNS ABOUT YOUR CONDITION; OR IF YOUR CONDITION WORSENS WHILE YOU ARE WAITING FOR YOUR FOLLOW UP APPOINTMENT; EITHER CONTACT YOUR PRIMARY CARE DOCTOR, THE PHYSICIAN WHOSE NAME AND NUMBER YOU WERE GIVEN, OR RETURN TO THE ED IMMEDIATELY. KAVEH KAUFFMAN APRN Mar 24, 2021 13:50 TREVOR TORRES MD Mar 25, 2021 18:48
[2021-03-24 14:17] LABS: BASO # 0.1 x10^3/uL (0.0-0.2); BASO % 1 % (0-3); EOS # 0.2 x10^3/uL (0.0-0.7); EOS % 3 % (0-3); HEMATOCRIT 47.3 % (36.0-47.0); HEMOGLOBIN 16.3 g/dL (12.0-15.5); LYMPH # 2.2 x10^3/uL (1.0-4.8); LYMPH % 35 % (24-48); MEAN CORPUSCULAR HEMOGLOBIN 32 pg (25-35); MEAN CORPUSCULAR HGB CONC 34 g/dL (31-37); MEAN CORPUSCULAR VOLUME 93 fL (79-100); MONO # 0.7 x10^3/uL (0.0-1.1); MONO % 11 % (0-9); NEUT # 3.1 x10^3/uL (1.8-7.7); NEUT % 50 % (31-73); PLATELET COUNT 233 x10^3/uL (140-400); RED BLOOD COUNT 5.11 x10^6/uL (3.50-5.40); RED CELL DISTRIBUTION WIDTH 12.7 % (11.5-14.5); WHITE BLOOD COUNT 6.1 x10^3/uL (4.0-11.0)
[2021-03-24 14:57] LABS: CALCIUM 8.5 mg/dL (8.5-10.1); CREATININE 0.7 mg/dL (0.6-1.0); POTASSIUM 4.4 mmol/L (3.5-5.1)
--- NOTE | 2021-03-24 15:00 | RAD ---
Bilateral Lower Extremity Venous Doppler: Reason for examination: Bilateral lower extremity swelling, pain The lower extremity venous systems bilaterally were evaluated from the common femoral and greater sap henous veins distally to the calf veins with grayscale imaging, color-flow imaging and spectral ellis sis. There is normal blood flow without deep venous thrombosis. There is normal response of the venous sys tems to compression and augmentation. Impression: No deep venous thrombosis in the lower extremity venous systems bilaterally. Electronically signed by: Fernando Antonio MD (03/24/2021 2:58 PM) [facility]
[2021-03-24 15:03] LABS: ALBUMIN 3.3 g/dL (3.4-5.0); ALBUMIN/GLOBULIN RATIO 0.9 (1.0-1.7); TOTAL BILIRUBIN 0.4 mg/dL (0.2-1.0); TOTAL PROTEIN 6.9 g/dL (6.4-8.2)
[2021-03-24 15:15] VITALS: BP 124/91
== END 2021-03-24 15:40 | disposition home or self-care (01) ==
LOC: ER 12:33
DX: M54.42 Lumbago with sciatica, left side (principal); M54.41 Lumbago with sciatica, right side; G89.29 Other chronic pain; J44.9 Chronic obstructive pulmonary disease, unspecified; F17.200 Nicotine dependence, unspecified, uncomplicated; Z88.1 Allergy status to other antibiotic agents; Z88.5 Allergy status to narcotic agent
CPT/HCPCS: 36415; 80053; 85025; 93970; 96360; 99285; J7030

== ENCOUNTER → 2021-03-28 | Outpatient (CLI) | payer MEDICARE, MEDICAID ==
[2021-03-24 15:15] VITALS: BP 124/91
--- NOTE | 2021-03-28 17:27 | KCIC ---
XR BILATERAL HIP (WITH OR WITHOUT PELVIS) LEFT 2 VIEWS History: Reason: Left hip pain. / Spl. Instructions: Chronic pain, worse after recent fall. Hurts to bear weight. / History: Technique: AP view the pelvis and additional view of the left hip. Comparison: None. Findings: No dislocation. No acute fracture. Mild bilateral hip DJD. Lower lumbar spondylosis. Impression: 1. Mild bilateral hip DJD. 2. Lower lumbar spondylosis. Electronically signed by: Keron Hawkins DO (03/28/2021 5:25 PM) [id number]
== END ==
LOC: KCIC 11:48
PROVIDERS: ATTEND Family Medicine
DX: M16.0 Bilateral primary osteoarthritis of hip (principal); M47.816 Spondylosis without myelopathy or radiculopathy, lumbar region
CPT/HCPCS: 73502

== ENCOUNTER → 2021-04-12 | Outpatient (CLI) | payer MEDICARE, MEDICAID ==
[2021-03-24 15:15] VITALS: BP 124/91
--- NOTE | 2021-04-12 13:46 | KCIC ---
Examination: MRI lumbar spine without IV contrast. History: LOW BACK PAIN, LEFT LEG WEAKNESS. New onset of severe left leg pain and weakness from hip do wn, atif in groin. Technique: Multiplanar, multi sequential MR imaging was performed of the lumbar spine. Comparison: 08/29/2020 Findings: Similar minimal retrolisthesis of T12 over L1. Unchanged Modic type I endplate degeneration at T12-L1 and L2-L3. Similar multilevel Modic type II endplate degeneration. The vertebral bodies are normal i n height. No acute fracture or subluxation. Conus terminates at the normal location. Unchanged lipoma of the filum terminale. Redundant appearance of the filum terminale, from the inferior canal stenosi s. No evidence of nerve root clumping. Redemonstrated severe multilevel degenerative changes with disc desiccation, disc space narrowing and osteophytes. Specific level as follow: T10-T11, T11-T12 and T12-L1: Diffuse disc bulge with bilateral facet arthropathy, causing moderate ca nal stenosis with moderate to severe bilateral neuroforaminal narrowing. These findings are unchanged since prior exam. L1-L2: Unchanged diffuse disc bulge with bilateral facet arthropathy, causing mild canal stenosis wit h mild to moderate bilateral neuroforaminal narrowing. L2-3: Diffuse disc bulge with left paracentral disc protrusion compressing thecal sac. Bilateral face t arthropathy. Prominent posterior epidural fat. Moderate to severe canal stenosis with severe left a nd moderate right neuroforaminal narrowing. These findings are unchanged since prior exam. L3-L4: Diffuse disc bulge with bilateral facet arthropathy. Similar mild canal stenosis. Similar oskar re left neuroforaminal narrowing, encroaching left L3 nerve roots. No significant right neuroforamina l narrowing. L4-5: Diffuse disc bulge with bilateral facet arthropathy. Similar mild to moderate canal stenosis. S imilar moderate bilateral neuroforaminal narrowing, abutting bilateral L4 nerve roots. L5-S1: Diffuse disc bulge with small central disc extrusion. Bilateral facet arthropathy and ligament um flavum hypertrophy. Moderate to severe canal stenosis. Severe bilateral neuroforaminal narrowing, encroaching bilateral L5 roots. These findings are similar to prior exam. Impression: No significant change in severe multilevel lumbar spondylosis with canal and neuroforaminal narrowing , as described above. Electronically signed by: Fawad Rider MD (04/12/2021 1:44 PM) [facility]
== END ==
LOC: KCIC MRI 12:19
PROVIDERS: ATTEND Family Medicine
DX: M47.816 Spondylosis without myelopathy or radiculopathy, lumbar region (principal); M51.27 Other intervertebral disc displacement, lumbosacral region; M48.8X7 Other specified spondylopathies, lumbosacral region; M48.07 Spinal stenosis, lumbosacral region; D17.79 Benign lipomatous neoplasm of other sites; M51.25 Other intervertebral disc displacement, thoracolumbar region; M48.8X5 Other specified spondylopathies, thoracolumbar region; M48.05 Spinal stenosis, thoracolumbar region
CPT/HCPCS: 72148